=== PATIENT | male | born 1930 ===

== ENCOUNTER 2017-03-13 14:56 | Inpatient (IN) | payer MEDICARE, OTHER ==
[2017-03-13] MEDS ORDERED: Sodium Chloride 0.9% 1,000 ML IV STA (15:31)
--- NOTE | 2017-03-13 15:57 | RAD ---
HISTORY: weakness COMPARISON: 06/21/2014 TECHNIQUE: Chest PA and lateral FINDINGS: LUNGS: No active pulmonary disease. PLEURA: No significant pleural effusion identified. No pneumothorax apparent. CARDIOVASCULAR: Mild cardiomegaly believed similar. Single lead pacemaker in place-wire appears intact. OSSEOUS STRUCTURES: No significant abnormalities. VISUALIZED UPPER ABDOMEN: Normal. OTHER FINDINGS: None. IMPRESSION: No active disease.
[2017-03-13 16:22] LABS: MEAN CELL VOLUME 92.8 fl (80.0-94.0); MEAN CORPUSCULAR HEMOGLOBIN 29.7 pg (27.0-31.0); RBC 5.03 Mil/uL (4.40-5.90); RED CELL DISTRIBUTION WIDTH 14.4 % (11.5-14.5); WHITE BLOOD COUNT 11.4 K/uL (4.8-10.8)
[2017-03-13 16:23] LABS: EOS % 2.2 % (0.0-4.0); LYMPH % 22.8 % (20.0-40.0); MEAN PLATELET VOLUME 8.1 fl (7.2-11.7); MONO % 7.7 % (0.0-10.0); NEUT % 66.2 % (50.0-75.0)
[2017-03-13 16:24] LABS: BASO % 1.1 % (0.0-2.0)
[2017-03-13 16:30] LABS: EOS # 0.2 K/uL (0.0-0.7); LYMPH # 2.6 K/uL (1.0-4.3); MONO # 0.9 K/uL (0.0-0.8); NEUT # 7.5 K/uL (1.8-7.0)
[2017-03-13 16:31] LABS: BASO # 0.1 K/uL (0.0-0.2)
--- NOTE | 2017-03-13 16:37 | ED PDOC ---
HPI: Headache Time Seen by Provider: 03/13/17 15:12 Chief Complaint (Nursing): Dizziness/Lightheaded Chief Complaint (Provider): Headache History Per: Patient History/Exam Limitations: no limitations Onset/Duration Of Symptoms: Days (couple of days) Current Symptoms Are (Timing): Still Present Preceeding Symptoms: None Associated Symptoms: Other (mild dizziness) Additional Complaint(s): Binh Flores is an 86 year old male, with a past medical history of HTN, asthma, COPD and cardiac arrhythmia, who presents to the emergency department complaining of headache associated with mild dizziness onset for the past couple of days. Patient does not describe the dizziness as vertiginous, he thinks he feels anxious and that's why he feels lightheaded. Patient also reports some chest pain for the past x4 hours, he denies any shortness of breath or diaphoresis. Patient states he forgot to take medication for the past few days. He lives by himself, family away from [facility]. Patient denies any other medical complaints. PMD: Xavier Gomes Of note: Patient currently sees Dr. Dahl. Past Medical History Reviewed: Historical Data, Nursing Documentation, Vital Signs Vital Signs: Last Vital Signs Temp 98.6 F 03/13/17 14:59 Pulse 76 03/13/17 14:59 Resp 16 03/13/17 14:59 BP 145/65 03/13/17 14:59 Pulse Ox 97 03/13/17 14:59 - Medical History PMH: Asthma, Cardia Arrhythmia, COPD, Depression, Fractures (per pt nose), HTN, TIA Denies: Arthritis, CHF, HIV, Hypercholesterolemia, Hypothyroidism, Chronic Kidney Disease, Rheumatoid Arthritis - Surgical History Surgical History: Cholecystectomy, Pacemaker - Family History Family History: States: Unknown Family Hx - Living Arrangements Living Arrangements: Alone - Social History Current smoker - smoking cessation education provided: No Alcohol: None Drugs: Denies - Immunization History Hx Tetanus Toxoid Vaccination: No Hx Influenza Vaccination: Yes Hx Pneumococcal Vaccination: Yes - Home Medications Home Medications: Ambulatory Orders Medication Instructions Recorded ALPRAZolam 03/15/15 Ferrous Sulfate 03/15/15 Finasteride 03/15/15 Metoprolol 03/15/15 Mirtazapine 03/15/15 Montelukast 03/15/15 Omeprazole 03/15/15 Tamsulosin 03/15/15 buPROPion 03/15/15 - Allergies Allergies/Adverse Reactions: Allergies Allergy/AdvReac Type Severity Reaction Status Date / Time No Known Allergies Allergy Verified 03/15/15 13:58 Review of Systems ROS Statement: Except As Marked, All Systems Reviewed And Found Negative Cardiovascular: Positive for: Chest Pain Respiratory: Negative for: Shortness of Breath Neurological: Positive for: Headache, Dizziness Physical Exam - Reviewed Nursing Documentation Reviewed: Yes Vital Signs Reviewed: Yes - Physical Exam Appears: Positive for: Well, Non-toxic, No Acute Distress Head Exam: Positive for: ATRAUMATIC, NORMAL INSPECTION, NORMOCEPHALIC Skin: Positive for: Normal Color, Warm, Dry Eye Exam: Positive for: Normal appearance, EOMI, PERRL Neck: Positive for: Painless ROM, Supple Cardiovascular/Chest: Positive for: Regular Rate, Rhythm. Negative for: Murmur Respiratory: Positive for: Normal Breath Sounds (clear auscultation b/l). Negative for: Respiratory Distress Gastrointestinal/Abdominal: Positive for: Normal Exam, Soft. Negative for: Tenderness, Guarding, Rebound Back: Positive for: Normal Inspection. Negative for: L CVA Tenderness, R CVA Tenderness, Vertebral Tenderness Extremity: Positive for: Normal ROM. Negative for: Pedal Edema, Deformity, Swelling Neurologic/Psych: Positive for: Alert, Oriented (x3). Negative for: Motor/ Sensory Deficits - Laboratory Results Result Diagrams: 03/13/17 15:30 03/13/17 16:30 - ECG O2 Sat by Pulse Oximetry: 97 (RA) Pulse Ox Interpretation: Normal Medical Decision Making Medical Decision Making: Initial Impression: Dizziness, chest pain Initial Plan: --EKG --CMP --Urine dipstick --CBC w/ differential --Chest two views (PA/LAT) [RAD] --Sodium Chloride 1,000 ml IV 125 mls/hr --reevaluation 15:55 Chest X-Ray FINDINGS: LUNGS: No active pulmonary disease. PLEURA: No significant pleural effusion identified. No pneumothorax apparent. CARDIOVASCULAR: Mild cardiomegaly believed similar. Single lead pacemaker in place-wire appears intact. OSSEOUS STRUCTURES: No significant abnormalities. VISUALIZED UPPER ABDOMEN: Normal. OTHER FINDINGS: None. IMPRESSION: No active disease. Scribe Attestation: Documented by Darrell Copeland, acting as a scribe for Amalia Mabry MD. Provider Scribe Attestation: All medical record entries made by the Scribe were at my direction and personally dictated by me. I have reviewed the chart and agree that the record accurately reflects my personal performance of the history, physical exam, medical decision making, and the department course for this patient. I have also personally directed, reviewed, and agree with the discharge instructions and disposition. Disposition - Clinical Impression Clinical Impression: Dizziness - Patient ED Disposition Is Patient to be Admitted: Yes Doctor Will See Patient In The: Hospital - Disposition Disposition: Transfer of Care Disposition Time: 17:15 Condition: STABLE Forms: [employer] (Pashto) - Pt Status Changed To: Hospital Disposition Of: Observation - POA Present On Arrival: None
[2017-03-13 16:53] LABS: ALB/GLOB RATIO 1.3 (1.0-2.1); ALBUMIN 4.3 g/dL (3.5-5.0); ALT/SGPT 43 U/L (21-72); AST/SGOT 40 U/L (17-59); BLOOD UREA NITROGEN 17 mg/dl (9-20); CALCIUM 9.8 mg/dL (8.4-10.2); GFR AFRICAN-AMERICAN > 60; GFR NON-AFRICAN AMERICAN > 60
[2017-03-14] MEDS: Pantoprazole 40 mg EC Tab PO SCH ×2 (00:26→21:35)
--- NOTE | 2017-03-14 00:53 | CP.PCM.CON ---
History of Present Illness - History of Present Illness History of Present Illness: Binh Flores is an 86 year old male, with a past medical history of HTN, asthma, COPD and cardiac arrhythmia, who presents to the emergency department complaining of headache associated with mild dizziness onset for the past couple of days. Patient does not describe the dizziness as vertiginous, he thinks he feels anxious and that's why he feels lightheaded. Patient also reports some chest pain for the past x4 hours, he denies any shortness of breath or diaphoresis. Patient states he forgot to take medication for the past few days. He lives by himself, family away from [facility]. Patient denies any other medical complaints. H/O Chest Pain, Headache, Dementia, H/O CVA or TIA PMD: Xavier Gomes Of note: Patient currently sees Dr. Dahl. Past Medical History Reviewed: Historical Data, Nursing Documentation, Vital Signs Vital Signs: Last Vital Signs Temp 98.6 F 03/13/17 14:59 Pulse 76 03/13/17 14:59 Resp 16 03/13/17 14:59 BP 145/65 03/13/17 14:59 Pulse Ox 97 03/13/17 14:59 - Medical History PMH: Asthma, Cardia Arrhythmia, COPD, Depression, Fractures (per pt nose), HTN, TIA, H/O Chest Pain, Headache, Dementia, H/O CVA or TIA Inablity to walk since 10 years after a spinal Surgery in his Lumbar area He has a home support worker who helped him for daily activity and feeding. 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 - Living Arrangements Living Arrangements: Alone - Family History Family History: States: Unknown Family Hx - Living Arrangements Living Arrangements: Alone - Social History Current smoker - smoking cessation education provided: No Alcohol: None Drugs: Denies - Family History Family History: States: Unknown Family Hx - Living Arrangements Living Arrangements: Alone - Social History Current smoker - smoking cessation education provided: No Alcohol: None Drugs: Denies - Family History Family History: States: Unknown Family Hx - Living Arrangements Living Arrangements: Alone - Social History Current smoker - smoking cessation education provided: No Alcohol: None Drugs: Denies Physical Exam - Reviewed Nursing Documentation Reviewed: Yes Vital Signs Reviewed: Yes - Physical Exam Appears: Positive for: Well, Non-toxic, No Acute Distress Head Exam: Positive for: ATRAUMATIC, NORMAL INSPECTION, NORMOCEPHALIC Skin: Positive for: Normal Color, Warm, Dry Eye Exam: Positive for: Normal appearance, EOMI, PERRL Neck: Positive for: Painless ROM, Supple Cardiovascular/Chest: Positive for: Regular Rate, Rhythm. Negative for: Murmur Respiratory: Positive for: Normal Breath Sounds (clear auscultation b/l). Negative for: Respiratory Distress Gastrointestinal/Abdominal: Positive for: Normal Exam, Soft. Negative for: Tenderness, Guarding, Rebound Back: Positive for: Normal Inspection. Negative for: L CVA Tenderness, R CVA Tenderness, Vertebral Tenderness Extremity: Positive for: Normal ROM. Negative for: Pedal Edema, Deformity, Swelling Neurologic/Psych: Positive for: Alert, Oriented (x3). Negative for: Motor/ Sensory Deficits ECG O2 Sat by Pulse Oximetry: 97 (RA) Pulse Ox Interpretation: Normal Chest X-Ray FINDINGS: LUNGS: No active pulmonary disease. PLEURA: No significant pleural effusion identified. No pneumothorax apparent. CARDIOVASCULAR: Mild cardiomegaly believed similar. Single lead pacemaker in place-wire appears intact. OSSEOUS STRUCTURES: No significant abnormalities. VISUALIZED UPPER ABDOMEN: Normal. OTHER FINDINGS: None. IMPRESSION: No active disease. Disposition - Clinical Impression Clinical Impression: Dizziness - Patient ED Disposition Is Patient to be Admitted: Yes Doctor Will See Patient In The: Hospital - Disposition Disposition: Transfer of Care Disposition Time: 17:15 Condition: STABLE Forms: [employer] (Bulgarian) - Pt Status Changed To: Hospital Disposition Of: Observation - POA Present On Arrival: None Past Patient History - Past Medical History & Family History Past Medical History?: Yes - Past Social History Alcohol: None Drugs: Denies - CARDIAC Hx Cardiac Disorders: Yes (cardiac arrythmia, pacemaker, cardiomyopathy) - PULMONARY Hx Respiratory Disorders: Yes (asthma, COPD) - NEUROLOGICAL Hx Neurological Disorder: Yes (CVA) - HEENT Hx HEENT Problems: Yes (cataracts) - RENAL Hx Chronic Kidney Disease: No - ENDOCRINE/METABOLIC Hx Hypothyroidism: No - HEMATOLOGICAL/ONCOLOGICAL Hx Human Immunodeficiency Virus (HIV): No - INTEGUMENTARY Hx Dermatological Problems: No - MUSCULOSKELETAL/RHEUMATOLOGICAL Hx Arthritis: No Hx Fractures: Yes (per pt nose) Hx Rheumatoid Arthritis: No - GASTROINTESTINAL Hx Gastrointestinal Disorders: Yes Hx Constipation: Yes - GENITOURINARY/GYNECOLOGICAL Hx Genitourinary Disorders: No - PSYCHIATRIC Hx Psychophysiologic Disorder: Yes (depression) - SURGICAL HISTORY Hx Cholecystectomy: Yes - ANESTHESIA Hx Anesthesia: Yes Hx Anesthesia Reactions: No Hx Malignant Hyperthermia: No Meds Allergies/Adverse Reactions: Allergies Allergy/AdvReac Type Severity Reaction Status Date / Time No Known Allergies Allergy Verified 03/15/15 13:58 - Medications Medications: Current Medications Atorvastatin Calcium (Lipitor) 40 mg PO HS [facility] Last Admin: 03/14/17 00:20 Dose: 40 mg Buspirone HCl (Buspar) 5 mg PO Q12H [facility] Last Admin: 03/14/17 00:20 Dose: 5 mg Donepezil HCl (Aricept) 5 mg PO DAILY [facility] Finasteride (Proscar) 5 mg PO [facility] Last Admin: 03/14/17 00:20 Dose: 5 mg Home Med (Umeclidinium [place] [Incruse Ellipta]) 1 puff IH DAILY [facility] Metoprolol Tartrate (Lopressor) 50 mg PO Q12H [facility] Last Admin: 03/14/17 00:26 Dose: 50 mg Mirtazapine (Remeron) 15 mg PO [facility] Last Admin: 03/14/17 00:20 Dose: 15 mg Montelukast Sodium (Singulair) 10 mg PO HS [facility] Last Admin: 03/14/17 00:20 Dose: 10 mg Pantoprazole Sodium (Protonix Ec Tab) 40 mg PO [facility] Last Admin: 03/14/17 00:26 Dose: 40 mg Tamsulosin HCl (Flomax) 0.4 mg PO [facility] Last Admin: 03/14/17 00:20 Dose: 0.4 mg Valsartan (Diovan) 80 mg PO DAILY [facility] Zolpidem Tartrate (Ambien) 5 mg PO HS PRN PRN Reason: Sleep Last Admin: 03/14/17 00:26 Dose: 5 mg Physical Exam - Psychiatric Exam Additional comments: Mental Status: Patient is lying down, quiet and responsive, well behaved Awake Alert, Oriented X3 Normal memory fluent coherent speech Sad for living by himself and for his divorce Complaining of headache and vertigo Compensated dementia Cranial Nerves II to XII: No deficits Motor: Normal tone, normal power in Right Upper and Lower Extremities Weak Power 3 to 4-/5 in Left Upper and Lower Extremities Positive Lasegue test bilaterally DTR are 0/4 Toes are down going by plantar stimulation Cerebellar: Normal FNT Unable to perform HST Unable to perform Tandem walking Sensory: Intact pain and touch Stature and Gait: Unable. Results - Vital Signs Recent Vital Signs: Last Vital Signs Temp 97.6 F 03/14/17 00:05 Pulse 71 03/14/17 00:26 Resp 18 03/14/17 00:05 BP 162/78 H 03/14/17 00:26 Pulse Ox 96 03/14/17 00:05 - Labs Result Diagrams: 03/14/17 05:15 03/16/17 10:10 Labs: Laboratory Results - last 24 hr 03/13/17 03/13/17 03/13/17 14:40 15:30 16:30 WBC 11.4 H D RBC 5.03 Hgb 15.0 Hct 46.7 MCV 92.8 MCH 29.7 MCHC 32.0 L RDW 14.4 Plt Count 202 MPV 8.1 Neut % (Auto) 66.2 Lymph % (Auto) 22.8 [place] % (Auto) 7.7 Eos % (Auto) 2.2 Baso % (Auto) 1.1 Neut # 7.5 H Lymph # 2.6 [place] # 0.9 H Eos # 0.2 Baso # 0.1 PT 11.0 INR 1.0 APTT 22.0 L Sodium 136 Potassium 4.1 Chloride 97 L Carbon Dioxide 31 H Anion Gap 12 BUN 17 Creatinine 0.9 Est GFR ( Amer) > 60 Est GFR (Non-Af Amer) > 60 Random Glucose 136 H Calcium 9.8 Total Bilirubin 0.7 AST 40 ALT 43 Alkaline Phosphatase 69 Total Protein 7.7 Albumin 4.3 Globulin 3.4 Albumin/Globulin Ratio 1.3 Assessment & Plan (1) Lightheadedness Assessment and Plan: Ear infection, Labyrinthitis are to be assessed. R/O Cervical Radiculopathy that might cause Vertigo R/O Paraneoplastic syndrome that might cause vertigo this might be related to a possible Cancer Prostate get PSA and Yo Abs Status: Acute (2) Unsteady gait Assessment and Plan: R/O weakness as a cause, R/O seizures R/O CVA. Status: Deleted Priority: High (3) Chest pain Assessment and Plan: Negative CXR R/O Cardiac causes Status: Acute Priority: High (4) Dizziness Assessment and Plan: Sense of Vertigo Status: Acute (5) Headache Assessment and Plan: R/O Temporal Arteritis R/O Hypnic Headache that occurs with sleep Apnea. Status: Acute Priority: Medium (6) Dementia Assessment and Plan: Compensated by treatment Status: Acute Priority: High (7) Inability to walk Assessment and Plan: After a lumbar spinal surgery 10 years ago Lumbar Radiculopathy Status: Acute (8) BPH (benign prostatic hyperplasia) Status: Acute (9) CVA (cerebral vascular accident) Assessment and Plan: CVA Vs TIA in the Past Status: Acute
[2017-03-14 05:58] LABS: HEMOGLOBIN 14.1 g/dL (12.0-18.0); MEAN CELL VOLUME 93.4 fl (80.0-94.0); MEAN CORPUSCULAR HEMOGLOBIN 30.1 pg (27.0-31.0); MEAN CORPUSCULAR HGB CONC 32.2 g/dL (33.0-37.0); RBC 4.69 Mil/uL (4.40-5.90); RED CELL DISTRIBUTION WIDTH 13.8 % (11.5-14.5); WHITE BLOOD COUNT 6.9 K/uL (4.8-10.8)
[2017-03-14 06:02] LABS: ALB/GLOB RATIO 1.2 (1.0-2.1); ALBUMIN 4.1 g/dL (3.5-5.0); ALT/SGPT 42 U/L (21-72); AST/SGOT 38 U/L (17-59); BLOOD UREA NITROGEN 14 mg/dl (9-20); CALCIUM 9.8 mg/dL (8.4-10.2); GFR AFRICAN-AMERICAN > 60; GFR NON-AFRICAN AMERICAN > 60; HDL CHOLESTEROL 53 MG/DL (30-70)
[2017-03-14 06:12] LABS: LDL CHOLESTEROL 100 mg/dL (0-129)
[2017-03-14 06:16] LABS: T4 8.13 ug/dl (5.5-11.0)
--- NOTE | 2017-03-14 08:41 | CT ---
PROCEDURE: CT HEAD WITHOUT CONTRAST. HISTORY: dizziness, headache COMPARISON: 06/21/2014 TECHNIQUE: Axial computed tomography images were obtained through the head/brain without intravenous contrast. Radiation dose: Total exam DLP = 873.42 mGy-cm. This CT exam was performed using one or more of the following dose reduction techniques: Automated exposure control, adjustment of the mA and/or kV according to patient size, and/or use of iterative reconstruction technique. FINDINGS: HEMORRHAGE: No intracranial hemorrhage. BRAIN: No mass effect or edema. Mild atrophy. Moderate periventricular white matter lucency with patchy and confluent deep and subcortical white matter lucency, consistent with chronic microvascular ischemic change. Multiple old small bilateral basal ganglia lacunar infarcts. No evidence of acute infarct. VENTRICLES: Incidental cavum septum pellucidum. Mild ventriculomegaly consistent with the degree of surrounding parenchymal atrophy. No evidence of obstructive hydrocephalus. No midline shift. CALVARIUM: Unremarkable. PARANASAL SINUSES: Unremarkable as visualized. No significant inflammatory changes. MASTOID AIR CELLS: Unremarkable as visualized. No inflammatory changes. OTHER FINDINGS: None. IMPRESSION: No intracranial mass, hemorrhage or evidence of acute infarct. Age related atrophy with chronic white matter ischemic change in bilateral basal ganglia lacunar infarcts. No interval change. Preliminary interpretation of this examination was reported by Sopheon at 7:30 p.m. on 03/13/2017. There is concurrence of this report with the preliminary interpretation.
[2017-03-14] MEDS ORDERED: Patient's Own Med (Umeclidinium Bromide [Incruse Ellipta] 1 PUFF) IH SCH (09:00)
--- NOTE | 2017-03-14 13:15 | CP.PCM.HP ---
History of Present Illness - History of Present Illness History of Present Illness: CC: Chest Pain. 86 y/o M, Multiple chronic medical conditions, [facility] for Chest pain that has wilson in AM DOA with no relief. 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 Dementia, PPM. Aggravated factor: Non in compliance with medications 2nd to periods of forgetfulness. No: fever, chills, SOB, syncope, abdominal pain, n/v/d, sick contact, recent travel out of [facility]. CXR: No active disease. Head CT: No intracranial mass, hemorrhage or acute infarct , chronic changes , lacunar infarcts Present on Admission - Present on Admission Any Indicators Present on Admission: No Review of Systems - Review of Systems Systems not reviewed;Unavailable: Acuity of Condition (Confused, fogetful.), Dementia Past Patient History - Past Medical History & Family History Past Medical History?: Yes Pertinent Family History: Unknown - Past Social History Smoking Status: Never Smoked Alcohol: None Drugs: Denies Home Situation {Lives}: Alone - CARDIAC Hx Cardiac Disorders: Yes (cardiac arrythmia, pacemaker, cardiomyopathy) Hx Pacemaker: Yes - PULMONARY Hx Respiratory Disorders: Yes (asthma, COPD) Hx Chronic Obstructive Pulmonary Disease (COPD): Yes - NEUROLOGICAL Hx Neurological Disorder: Yes (CVA) - HEENT Hx HEENT Problems: Yes (cataracts) - RENAL Hx Chronic Kidney Disease: No - ENDOCRINE/METABOLIC Hx Hypothyroidism: No - HEMATOLOGICAL/ONCOLOGICAL Hx Blood Disorders: No Hx Human Immunodeficiency Virus (HIV): No - INTEGUMENTARY Hx Dermatological Problems: No - MUSCULOSKELETAL/RHEUMATOLOGICAL Hx Arthritis: No Hx Back Pain: Yes Hx Falls: No Hx Fractures: Yes (per pt nose) Hx Rheumatoid Arthritis: No Hx Unsteady Gait: Yes - GASTROINTESTINAL Hx Gastrointestinal Disorders: Yes Hx Constipation: Yes - GENITOURINARY/GYNECOLOGICAL Hx Genitourinary Disorders: No - PSYCHIATRIC Hx Psychophysiologic Disorder: Yes (depression) Hx Anxiety: Yes Hx Depression: Yes Hx Substance Use: No - SURGICAL HISTORY Hx Cholecystectomy: Yes Other/Comment: Laminectomy , Discectomy , posterior fusion L-S - ANESTHESIA Hx Anesthesia: Yes Hx Anesthesia Reactions: No Hx Malignant Hyperthermia: No Meds Allergies/Adverse Reactions: Allergies Allergy/AdvReac Type Severity Reaction Status Date / Time No Known Allergies Allergy Verified 03/15/15 13:58 Physical Exam - Constitutional Appears: No Acute Distress - Head Exam Head Exam: NORMAL INSPECTION - Eye Exam Eye Exam: PERRL - ENT Exam ENT Exam: Normal Exam - Neck Exam Neck exam: Positive for: Normal Inspection - Respiratory Exam Respiratory Exam: Clear to Auscultation Bilateral - Cardiovascular Exam Cardiovascular Exam: REGULAR RHYTHM - GI/Abdominal Exam GI & Abdominal Exam: Normal Bowel Sounds, Soft - Extremities Exam Additional comments: Weaknesses L/E - Back Exam Back exam: tenderness (mild) Additional comments: healed scars - Neurological Exam Additional comments: Forgetful, confused, follows commands. Unsteady gait, generalized weakness L>R - Psychiatric Exam Psychiatric exam: Anxious, Depressed - Skin Skin Exam: Warm Results - Vital Signs Recent Vital Signs: Last Vital Signs Temp 98.2 F 03/14/17 12:00 Pulse 64 03/14/17 13:06 Resp 20 03/14/17 12:00 BP 135/57 L 03/14/17 13:06 Pulse Ox 98 03/14/17 12:00 reviewed Jose Maria - Labs Result Diagrams: 03/14/17 05:15 03/16/17 10:10 Labs: Laboratory Results - last 24 hr 03/13/17 03/13/17 03/13/17 14:40 15:30 16:30 WBC 11.4 H D RBC 5.03 Hgb 15.0 Hct 46.7 MCV 92.8 MCH 29.7 MCHC 32.0 L RDW 14.4 Plt Count 202 MPV 8.1 Neut % (Auto) 66.2 Lymph % (Auto) 22.8 [place] % (Auto) 7.7 Eos % (Auto) 2.2 Baso % (Auto) 1.1 Neut # 7.5 H Lymph # 2.6 [place] # 0.9 H Eos # 0.2 Baso # 0.1 ESR PT 11.0 INR 1.0 APTT 22.0 L Sodium 136 Potassium 4.1 Chloride 97 L Carbon Dioxide 31 H Anion Gap 12 BUN 17 Creatinine 0.9 Est GFR ( Amer) > 60 Est GFR (Non-Af Amer) > 60 Random Glucose 136 H Calcium 9.8 Total Bilirubin 0.7 AST 40 ALT 43 Alkaline Phosphatase 69 Total Protein 7.7 Albumin 4.3 Globulin 3.4 Albumin/Globulin Ratio 1.3 Triglycerides Cholesterol LDL Cholesterol Direct HDL Cholesterol Prostate Specific Ag Vitamin B12 Thyroxine (T4) TSH 3rd Generation 03/14/17 03/14/17 05:15 05:15 WBC 6.9 RBC 4.69 Hgb 14.1 Hct 43.8 MCV 93.4 MCH 30.1 MCHC 32.2 L RDW 13.8 Plt Count 175 MPV Neut % (Auto) Lymph % (Auto) [place] % (Auto) Eos % (Auto) Baso % (Auto) Neut # Lymph # [place] # Eos # Baso # ESR 22 H PT INR APTT Sodium 139 Potassium 3.9 Chloride 98 Carbon Dioxide 31 H Anion Gap 14 BUN 14 Creatinine 0.8 Est GFR ( Amer) > 60 Est GFR (Non-Af Amer) > 60 Random Glucose 122 H Calcium 9.8 Total Bilirubin 0.9 AST 38 ALT 42 Alkaline Phosphatase 69 Total Protein 7.6 Albumin 4.1 Globulin 3.5 Albumin/Globulin Ratio 1.2 Triglycerides 84 Cholesterol 179 LDL Cholesterol Direct 100 HDL Cholesterol 53 Prostate Specific Ag 0.266 Vitamin B12 514 Thyroxine (T4) 8.13 TSH 3rd Generation 2.76 reviewed [facility] - Imaging and Cardiology Chest x-ray Status: Report reviewed by me (Jose Maria) CT scan - head Status: Report reviewed by me (Jose Maria) Assessment & Plan (1) Encephalopathy Status: Acute (2) Chest pain Status: Acute Priority: High (3) Anxiety and depression Status: Chronic Priority: High (4) Generalized weakness Status: Chronic Priority: High (5) Dementia Status: Acute Priority: High (6) HTN (hypertension) Status: Chronic Priority: Medium (7) COPD (chronic obstructive pulmonary disease) Status: Chronic Priority: Low (8) History of CVA (cerebrovascular accident) Status: Chronic Priority: Medium (9) Headache Status: Acute Priority: Medium (10) History of laminectomy Status: Acute - Assessment and Plan (Free Text) Plan: F/U Carotid & vertebral U-S, EKG, continue Diovan, Lopressor, Lipitor, Singulair, PT. OT eval, Neurology consult appreciated, Cardiology consult. - Date & Time Date: 03/14/17 Time: 11:30
--- NOTE | 2017-03-14 14:59 | US ---
PROCEDURE: Duplex ultrasound of the carotid and vertebral arteries. HISTORY: Vertigo, Unsteady Gait COMPARISON: Right ICA degree of stenosis: Less than 50% Left ICA degree of stenosis: Less than 50% Reference Internal Carotid Artery (ICA) Peak Systolic Velocity (PSV) for above: 1. Less than 50% stenosis less than 125 cm/s peak systolic velocity 2. 50-69% stenosis 125-230cm/s peak systolic velocity 3. Greater than 70% but less than near occlusion greater than 230 cm/s peak systolic velocity TECHNIQUE: Grayscale and duplex Doppler evaluation of the cervical carotid and vertebral arteries were performed. The common carotid, carotid bifurcations and cervical ICA and proximal ECA were evaluated. The vertebral arteries were evaluated for gross patency and direction. FINDINGS: RIGHT CAROTID ARTERIES: Common Carotid Artery: Intimal thickening is present Maximal flow velocity of 44.3 cm/s. Carotid Bifurcation: Focal partially calcified plaque. Internal Carotid Artery:Heterogeneous plaque formation. tortuous ICA Maximal flow velocity of 127.6 cm/s. External Carotid Artery (proximal branches): Normal. Maximal flow velocity of 196.8 cm/s. ICA/CCA Ratio: 2.9 LEFT CAROTID ARTERIES: Common Carotid Artery: Intimal thickening is present Maximal flow velocity of 96.3 cm/s. Carotid Bifurcation: Dense heterogeneous and calcified plaque Internal Carotid Artery:Heterogeneous plaque formation. Maximal flow velocity of 188.4 cm/s. External Carotid Artery (proximal branches): Normal. Maximal flow velocity of 196.8 cm/s. ICA/CCA Ratio: 3.0 VERTEBRAL ARTERIES: Right Vertebral Artery: Patent. Antegrade flow. Left Vertebral Artery: Patent. Antegrade flow. OTHER FINDINGS: None. IMPRESSION: Right ICA degree of stenosis: 50- 69% Left ICA degree of stenosis: 50- 69%. Reference Internal Carotid Artery (ICA) Peak Systolic Velocity (PSV) for above: 1. Less than 50% stenosis less than 125 cm/s peak systolic velocity 2. 50-69% stenosis 125-230cm/s peak systolic velocity 3. Greater than 70% but less than near occlusion greater than 230 cm/s peak systolic velocity
--- NOTE | 2017-03-14 19:39 | CARD ---
APPROVED REPORT EXAM: Two-dimensional and M-mode echocardiogram with Doppler and color Doppler. Other Information Quality : GoodRhythm : NSR INDICATION Dizziness and Vertigo Surgery/Intervention ICD/Pacemaker: 2D DIMENSIONS IVSd1.23 (0.7-1.1cm)LVDd5.36 (3.9-5.9cm) LVOT Diameter2.08 (1.8-2.4cm)PWd0.85 (0.7-1.1cm) IVSs1.32 (0.8-1.2cm)LVDs4.35 (2.5-4.0cm) FS (%) 18.8 %PWs0.70 (0.8-1.2cm) M-Mode DIMENSIONS Left Atrium (MM)4.72 (2.5-4.0cm)IVSd0.47 (0.7-1.1cm) Aortic Root3.47 (2.2-3.7cm)LVDd7.78 (4.0-5.6cm) Aortic Cusp Exc.1.63 (1.5-2.0cm)PWd0.84 (0.7-1.1cm) IVSs1.09 cmFS (%) 39 % LVDs4.78 (2.0-3.8cm)PWs1.00 cm Mitral Valve MV E Ehitqqdq55.2cm/sMV DECEL [id number] A Xzgfnksf21.6cm/s MV LYW89lcP/A ratio1.3MVA (PHT)3.55cm2 TDI Lateral E' Peak V10.43cm/sMedial E' Peak V3.26cm/sE/Lateral E'7.8 E/Medial E'24.9 Pulmonary Valve PV Peak Onnmluwa80.8cm/s Tricuspid Valve TR Peak Pyllnsuj931qq/sRAP TXFZYDJG62oyAaHN Peak Gr.35mmHg [id number] LEFT VENTRICLE The left ventricle is normal size. There is normal left ventricular wall thickness. The left ventricular function is low normal. The left ventricular ejection fraction is low normal range.LVEF is 50% There is inferior and posterobasal hypokinesis. The left ventricular diastolic function is normal. No left ventricle thrombus noted on this study. There is no ventricular septal defect visualized. There is no left ventricular aneurysm. There is no mass noted in the left ventricle. RIGHT VENTRICLE The right ventricle is normal size. There is normal right ventricular wall thickness. The right ventricular systolic function is normal. ATRIA The left atrium is moderately dilated. The right atrium size is normal. The interatrial septum is intact with no evidence for an atrial septal defect. AORTIC VALVE The aortic valve is normal in structure. There is mild to moderate aortic regurgitation. There is no aortic valvular stenosis. There is no aortic valvular vegetation. MITRAL VALVE The mitral valve is normal in structure. There is no evidence of mitral valve prolapse. There is no mitral valve stenosis. Mitral regurgitation is moderate. TRICUSPID VALVE The tricuspid valve is normal in structure. There is trace to mild tricuspid regurgitation. Right ventricular systolic pressure is estimated at 30-40 mmHg. There is no tricuspid valve prolapse or vegetation. There is no tricuspid valve stenosis. PULMONIC VALVE The pulmonary valve is normal in structure. There is no pulmonic valvular regurgitation. There is no pulmonic valvular stenosis. GREAT VESSELS The aortic root is normal in size. The ascending aorta is normal in size. The IVC is normal in size and collapses >50% with inspiration. PERICARDIAL EFFUSION The pericardium appears normal. There is no pleural effusion. <Conclusion> Low Normal Systolic Ejection Fraction LVEF 50% Posterobasal/ Inferior wall hypokinesis Moderate Mitral Regurgitation Mild To Moderate Aortic Insufficiency
--- NOTE | 2017-03-14 23:09 | CP.PCM.PN ---
Subjective - Date & Time of Evaluation Date of Evaluation: 03/14/17 Time of Evaluation: 23:07 - Subjective Subjective: IMPRESSION of Carotid Doppler: Right ICA degree of stenosis: 50- 69% Left ICA degree of stenosis: 50- 69% He is more stable, skipping doses of his medicine. ESR and CRP are within Normal. PSA is pending. Other labs are within normal limits Normal Vitamin D level Normal RPR, Normal Thyroid studies and studies for DM Objective - Vital Signs/Intake and Output Vital Signs (last 24 hours): Temp Pulse Resp BP Pulse Ox 98.2 F 61 16 150/77 94 L 03/14/17 20:25 03/14/17 21:00 03/14/17 20:25 03/14/17 20:25 03/14/17 20:25 - Medications Medications: Current Medications Atorvastatin Calcium (Lipitor) 40 mg PO [facility] Last Admin: 03/14/17 21:35 Dose: 40 mg Buspirone HCl (Buspar) 5 mg PO Q12H [facility] Last Admin: 03/14/17 13:03 Dose: 5 mg Donepezil HCl (Aricept) 5 mg PO DAILY [facility] Last Admin: 03/14/17 09:42 Dose: 5 mg Finasteride (Proscar) 5 mg PO [facility] Last Admin: 03/14/17 21:36 Dose: 5 mg Home Med (Umeclidinium Olar [Incruse Ellipta]) 1 puff IH DAILY [facility] Metoprolol Tartrate (Lopressor) 50 mg PO Q12H [facility] Last Admin: 03/14/17 13:06 Dose: 50 mg Mirtazapine (Remeron) 15 mg PO [facility] Last Admin: 03/14/17 00:20 Dose: 15 mg Montelukast Sodium (Singulair) 10 mg PO HS [facility] Last Admin: 03/14/17 21:35 Dose: 10 mg Pantoprazole Sodium (Protonix Ec Tab) 40 mg PO [facility] Last Admin: 03/14/17 21:35 Dose: 40 mg Tamsulosin HCl (Flomax) 0.4 mg PO [facility] Last Admin: 03/14/17 21:35 Dose: 0.4 mg Valsartan (Diovan) 80 mg PO DAILY [facility] Last Admin: 03/14/17 09:43 Dose: 80 mg Zolpidem Tartrate (Ambien) 5 mg PO HS PRN PRN Reason: Sleep Last Admin: 03/14/17 00:26 Dose: 5 mg - Labs Labs: 03/14/17 05:15 03/14/17 05:15 PT 11.0 Seconds (9.8-13.1) 03/13/17 14:40 INR 1.0 (0.9-1.2) 03/13/17 14:40 APTT 22.0 Seconds (25.6-37.1) L 03/13/17 14:40 Assessment and Plan (1) Lightheadedness Status: Acute (2) Unsteady gait Status: Deleted (3) Chest pain Status: Acute (4) Dizziness Status: Acute (5) Headache Status: Acute (6) Dementia Status: Acute (7) Inability to walk Status: Acute (8) BPH (benign prostatic hyperplasia) Status: Acute (9) CVA (cerebral vascular accident) Status: Acute
--- NOTE | 2017-03-15 09:21 | CP.PCM.CON ---
History of Present Illness - History of Present Illness History of Present Illness: This 86- year-old man who has had a left hemiplegia and is mostly bed and chair bound was brought to the emergency room because of a feeling of weakness and lightheadedness. He has had a long history of hypertension and COPD. The patient lives alone but the rest of his family in [place]. He has had numerous hospitalizations at this institution as well as at [facility]. Physical examination shows an elderly man with a left hemiplegia was able to answer simple questions on repeatedly asking them. He does not seem to be aware of his surroundings and cannot precisely answer that he is in a hospital. His heart rate was 68 bpm and regular and his blood pressure was 136/74 mmHg. His jugular venous pressure was not elevated and there was no edema hour his lower extremity. Pedal pulses are feeble but distantly present. There were no carotid bruits. The apex was not palpable. This first and second heart sounds were normal. There is a brief ejection systolic murmur. There was no gallop rhythm and there were no rales. His abdomen was soft liver and spleen are not palpable. The patient had a left hemiplegia. His electro-cardiogram shows sinus rhythm with nonspecific ST-T changes the R waves in V2 were prominent, there were no Q waves in inferior leads. His echocardiogram shows mild left ventricular wall motion abnormalities but otherwise the left ventricle appears to be competent. There was no significant valvulopathy. The patient's telemetry shows steady sinus rhythm. His lab data was noted. Impression: Status post left hemiplegia. History of hypertension and COPD. The patient is stable from cardiac vascular point of view. The present management should continue. Past Patient History - Past Medical History & Family History Past Medical History?: Yes - Past Social History Smoking Status: Never Smoked Alcohol: None Drugs: Denies Home Situation {Lives}: Alone - CARDIAC Hx Cardiac Disorders: Yes (cardiac arrythmia, pacemaker, cardiomyopathy) Hx Pacemaker: Yes - PULMONARY Hx Respiratory Disorders: Yes (asthma, COPD) Hx Chronic Obstructive Pulmonary Disease (COPD): Yes - NEUROLOGICAL Hx Neurological Disorder: Yes (CVA) - HEENT Hx HEENT Problems: Yes (cataracts) - RENAL Hx Chronic Kidney Disease: No - ENDOCRINE/METABOLIC Hx Hypothyroidism: No - HEMATOLOGICAL/ONCOLOGICAL Hx Blood Disorders: No Hx Human Immunodeficiency Virus (HIV): No - INTEGUMENTARY Hx Dermatological Problems: No - MUSCULOSKELETAL/RHEUMATOLOGICAL Hx Arthritis: No Hx Back Pain: Yes Hx Falls: No Hx Fractures: Yes (per pt nose) Hx Rheumatoid Arthritis: No Hx Unsteady Gait: Yes - GASTROINTESTINAL Hx Gastrointestinal Disorders: Yes Hx Constipation: Yes - GENITOURINARY/GYNECOLOGICAL Hx Genitourinary Disorders: No - PSYCHIATRIC Hx Psychophysiologic Disorder: Yes (depression) Hx Anxiety: Yes Hx Depression: Yes Hx Substance Use: No - SURGICAL HISTORY Hx Cholecystectomy: Yes - ANESTHESIA Hx Anesthesia: Yes Hx Anesthesia Reactions: No Hx Malignant Hyperthermia: No Meds Allergies/Adverse Reactions: Allergies Allergy/AdvReac Type Severity Reaction Status Date / Time No Known Allergies Allergy Verified 03/15/15 13:58 - Medications Medications: Current Medications Atorvastatin Calcium (Lipitor) 40 mg PO [facility] Last Admin: 03/14/17 21:35 Dose: 40 mg Buspirone HCl (Buspar) 5 mg PO Q12H [facility] Last Admin: 03/14/17 23:45 Dose: Not Given Donepezil HCl (Aricept) 5 mg PO DAILY [facility] Last Admin: 03/14/17 09:42 Dose: 5 mg Finasteride (Proscar) 5 mg PO [facility] Last Admin: 03/14/17 21:36 Dose: 5 mg Home Med (Umeclidinium Sargents [Incruse Ellipta]) 1 puff IH DAILY [facility] Metoprolol Tartrate (Lopressor) 50 mg PO Q12H [facility] Last Admin: 03/14/17 23:45 Dose: 50 mg Mirtazapine (Remeron) 15 mg PO [facility] Last Admin: 03/14/17 23:45 Dose: Not Given Montelukast Sodium (Singulair) 10 mg PO [facility] Last Admin: 03/14/17 21:35 Dose: 10 mg Pantoprazole Sodium (Protonix Ec Tab) 40 mg PO [facility] Last Admin: 03/14/17 21:35 Dose: 40 mg Tamsulosin HCl (Flomax) 0.4 mg PO [facility] Last Admin: 03/14/17 21:35 Dose: 0.4 mg Valsartan (Diovan) 80 mg PO DAILY [facility] Last Admin: 03/14/17 09:43 Dose: 80 mg Zolpidem Tartrate (Ambien) 5 mg PO PRN PRN Reason: Sleep Last Admin: 03/14/17 00:26 Dose: 5 mg Results - Vital Signs Recent Vital Signs: Last Vital Signs Temp 97.6 F 03/15/17 08:32 Pulse 56 L 03/15/17 08:32 Resp 20 03/15/17 08:32 BP 147/71 03/15/17 08:32 Pulse Ox 98 03/15/17 08:32 - Labs Result Diagrams: 03/14/17 05:15 03/14/17 05:15 Labs: Laboratory Results - last 24 hr 03/14/17 03/14/17 03/14/17 05:15 05:15 05:15 Troponin I C-React Prot High Sens 2.22 25-OH Vitamin D Total 35.1 RPR Nonreactive 03/14/17 03/14/17 03/15/17 13:34 21:00 05:31 Troponin I < 0.0120 0.0220 0.0280 C-React Prot High Sens 25-OH Vitamin D Total RPR
--- NOTE | 2017-03-15 17:17 | CP.PCM.PN ---
Subjective - Date & Time of Evaluation Date of Evaluation: 03/15/17 Time of Evaluation: 13:30 - Subjective Subjective: lethargic , arousable , confused , no AD Objective - Vital Signs/Intake and Output Vital Signs (last 24 hours): Temp Pulse Resp BP Pulse Ox 97.4 F L 66 18 140/94 H 100 03/15/17 16:48 03/15/17 15:51 03/15/17 15:51 03/15/17 15:51 03/15/17 15:51 - Medications Medications: Current Medications Acetaminophen (Tylenol 325mg Tab) 650 mg PO Q4 PRN PRN Reason: Headache Last Admin: 03/15/17 16:48 Dose: 650 mg Atorvastatin Calcium (Lipitor) 40 mg PO HS [facility] Last Admin: 03/14/17 21:35 Dose: 40 mg Buspirone HCl (Buspar) 5 mg PO Q12H [facility] Last Admin: 03/14/17 23:45 Dose: Not Given Donepezil HCl (Aricept) 5 mg PO DAILY [facility] Last Admin: 03/14/17 09:42 Dose: 5 mg Finasteride (Proscar) 5 mg PO HS [facility] Last Admin: 03/14/17 21:36 Dose: 5 mg Home Med (Umeclidinium [place] [Incruse Ellipta]) 1 puff IH DAILY [facility] Metoprolol Tartrate (Lopressor) 50 mg PO Q12H [facility] Last Admin: 03/15/17 15:11 Dose: 50 mg Mirtazapine (Remeron) 15 mg PO [facility] Last Admin: 03/14/17 23:45 Dose: Not Given Montelukast Sodium (Singulair) 10 mg PO [facility] Last Admin: 03/14/17 21:35 Dose: 10 mg Pantoprazole Sodium (Protonix Ec Tab) 40 mg PO HS [facility] Last Admin: 03/14/17 21:35 Dose: 40 mg Tamsulosin HCl (Flomax) 0.4 mg PO [facility] Last Admin: 03/14/17 21:35 Dose: 0.4 mg Valsartan (Diovan) 80 mg PO DAILY [facility] Last Admin: 03/15/17 09:22 Dose: 80 mg Zolpidem Tartrate (Ambien) 5 mg PO HS PRN PRN Reason: Sleep Last Admin: 03/14/17 00:26 Dose: 5 mg - Labs Labs: 03/14/17 05:15 03/14/17 05:15 PT 11.0 Seconds (9.8-13.1) 03/13/17 14:40 INR 1.0 (0.9-1.2) 03/13/17 14:40 APTT 22.0 Seconds (25.6-37.1) L 03/13/17 14:40 - Constitutional Appears: Chronically Ill - Head Exam Head Exam: NORMAL INSPECTION - Eye Exam Eye Exam: PERRL - ENT Exam ENT Exam: Normal Exam - Neck Exam Neck Exam: Normal Inspection - Respiratory Exam Respiratory Exam: Decreased Breath Sounds (at bases) - Cardiovascular Exam Cardiovascular Exam: REGULAR RHYTHM - GI/Abdominal Exam GI & Abdominal Exam: Soft, Normal Bowel Sounds - Extremities Exam Extremities Exam: Normal Inspection - Back Exam Additional comments: healed scars - Neurological Exam Additional comments: confused, generalized weakness L>R - Skin Skin Exam: Warm Assessment and Plan (1) Chest pain Status: Resolved (2) Anxiety and depression Status: Chronic (3) Generalized weakness Status: Chronic (4) Dementia Status: Chronic (5) HTN (hypertension) Status: Chronic (6) COPD (chronic obstructive pulmonary disease) Status: Chronic (7) History of CVA (cerebrovascular accident) Status: Chronic (8) Headache Status: Resolved (9) Encephalopathy Status: Acute (10) History of laminectomy Status: Acute - Assessment and Plan (Free Text) Plan: can not have MRI Brain due to PPM , Cardiac , Neurology consult appreciated , continue current Tx
--- NOTE | 2017-03-15 17:19 | CT ---
PROCEDURE: CT lumbar spine dated 03/15/2017 No prior study available comparison HISTORY: Radiculopathy. TECHNIQUE: Contiguous helical/transaxial computed tomography images were obtained of the lumbar spine without the use of intravenous contrast. Coronal and sagittal reformatted images were created and reviewed. Radiation dose: Total exam DLP = 1430.06 mGy-cm. This CT exam was performed using one or more of the following dose reduction techniques: Automated exposure control, adjustment of the mA and/or kV according to patient size, and/or use of iterative reconstruction technique. FINDINGS: VERTEBRAE: The current study reveals no acute compression fractures no retropulsed fragments. There has been of discectomy L5-S1 level of with prostatic disc and presumed [place] bone graft material in the L5-S1 disc space. There has also been right sided laminectomy at the L5 level. Posterior fixation accomplished by placement of short segment bilateral [place] rods which are attached to the posterior elements of the right and left L5 and S1 segments. Note that the fixation hardware results in significant streak and beam hardening artifact obscuring fine soft tissue and bone detail. The facet joints do appear hypertrophic at this the level with productive changes and surrounding heterotopic bone. . There is mild posterior disc space narrowing with irregular osteophytic ridge. The central canal appears quite stenotic along the superior margin of the disc space level. Exit foramina are also stenotic bilaterally more so on the left side. At the L4-L5 level, there is moderate posterior disc space narrowing with vacuum disc phenomena. Broad-based disc ridge complex extends into the proximal inferior margins of both exit foramina. Facet joints are hypertrophic. There is resultant significant bilateral lateral recess and mild central canal stenosis, measured at midline however note that the buckled ligamentum flavum and overgrown facets at compress the posterolateral borders of the thecal sac. . Exit foramina are narrowed bilaterally. At the L3-L4 level, there is disc space narrowing more so along the posterior disc margin with endplate eburnation and osteophytic ridge disc complex that extends into the proximal inferior margins of both exit foramina. Facets are hypertrophic and flavum buckled. There is resultant significant bilateral lateral recess and central canal stenosis. Exit foramina are narrowed bilaterally more so on the right. . At the L2-L3 level, there is mild posterior disc space narrowing. Small broad-based disc ridge complex extends slightly into the proximal inferior margins of both exit foramina more so on the right. . The facet joints also hypertrophic and flavum somewhat buckled. There is resultant moderate central canal stenosis. Exit foramina appear adequate. Note made of the fusion changes of the SI joints bilaterally. Note made of approximately 5.1 mm elliptical shaped nonobstructing calculus midpole left kidney. There appears to be irregular irregular cortical scarring left kidney. IMPRESSION: No acute compression fractures no retropulsed fragments. Postoperative changes of right-sided laminectomy L5 level with discectomy and posterior fusion L5-S1 level. Multilevel degenerative spondylosis most as detailed above.
--- NOTE | 2017-03-15 18:33 | CARD ---
APPROVED REPORT EKG Measurement Heart [id number] <Conclusion> Sinus rhythm with 1st degree AV block ST & T wave abnormality, consider lateral ischemia Prolonged QT Abnormal ECG
[2017-03-15] MEDS: Albuterol-Ipratrop 3 mg / 0.5 (3 ml) UD INH SCH (19:13)
[2017-03-15] MEDS: Pantoprazole 40 mg EC Tab PO SCH (21:35)
--- NOTE | 2017-03-16 00:14 | CP.PCM.PN ---
<Dimitris Moore Catrachita - Last Filed: 03/16/17 00:07> Subjective - Date & Time of Evaluation Date of Evaluation: 03/16/17 Time of Evaluation: 00:07 - Subjective Subjective: Patient has abnormal CT L.S Spine, as he was found to have a Cardiac pacemaker that prevent him from having MRI of the Brain or the spine or any MRI of the Body. We are trying to understand the reason for his inability to walk. CT C Spine is showing 2 disc herniation, it was done recently. Current CT LS spine is abnormal. CT LS Spine without Contrast is showing: No acute compression fractures no retropulsed fragments. Postoperative changes of right-sided laminectomy L5 level with discectomy and posterior fusion L5-S1 level. Multilevel degenerative spondylosis most as detailed above. There is no change in his condition, awake, alert Oriented X 3 Difficulty walking or mostly inability to walk. Objective - Vital Signs/Intake and Output Vital Signs (last 24 hours): Temp Pulse Resp BP Pulse Ox 97.6 F 66 17 142/71 99 03/15/17 20:10 03/15/17 20:10 03/15/17 20:10 03/15/17 20:10 03/15/17 20:10 - Medications Medications: Current Medications Acetaminophen (Tylenol 325mg Tab) 650 mg PO Q4 PRN PRN Reason: Headache Last Admin: 03/15/17 16:48 Dose: 650 mg Albuterol/Ipratropium (Duoneb 3 Mg/0.5 Mg (3 Ml) Ud) 3 ml INH RTID [facility] Last Admin: 03/15/17 19:13 Dose: 3 ml Atorvastatin Calcium (Lipitor) 40 mg PO [facility] Last Admin: 03/15/17 21:34 Dose: 40 mg Buspirone HCl (Buspar) 5 mg PO Q12H [facility] Last Admin: 03/14/17 23:45 Dose: Not Given Donepezil HCl (Aricept) 5 mg PO DAILY [facility] Last Admin: 03/14/17 09:42 Dose: 5 mg Finasteride (Proscar) 5 mg PO [facility] Last Admin: 03/15/17 21:35 Dose: 5 mg Metoprolol Tartrate (Lopressor) 50 mg PO Q12H [facility] Last Admin: 03/15/17 15:11 Dose: 50 mg Mirtazapine (Remeron) 15 mg PO [facility] Last Admin: 03/14/17 23:45 Dose: Not Given Montelukast Sodium (Singulair) 10 mg PO HS [facility] Last Admin: 03/15/17 21:35 Dose: 10 mg Pantoprazole Sodium (Protonix Ec Tab) 40 mg PO HS [facility] Last Admin: 03/15/17 21:35 Dose: 40 mg Tamsulosin HCl (Flomax) 0.4 mg PO HS [facility] Last Admin: 03/15/17 21:34 Dose: 0.4 mg Valsartan (Diovan) 80 mg PO DAILY [facility] Last Admin: 03/15/17 09:22 Dose: 80 mg Zolpidem Tartrate (Ambien) 5 mg PO HS PRN PRN Reason: Sleep Last Admin: 03/14/17 00:26 Dose: 5 mg - Labs Labs: 03/14/17 05:15 03/14/17 05:15 PT 11.0 Seconds (9.8-13.1) 03/13/17 14:40 INR 1.0 (0.9-1.2) 03/13/17 14:40 APTT 22.0 Seconds (25.6-37.1) L 03/13/17 14:40 Assessment and Plan (1) Lightheadedness Status: Acute (2) Unsteady gait Status: Deleted (3) Chest pain Status: Acute (4) Dizziness Status: Acute (5) Headache Status: Acute (6) Dementia Status: Acute (7) Inability to walk Status: Acute (8) BPH (benign prostatic hyperplasia) Status: Acute (9) CVA (cerebral vascular accident) Status: Acute <Mynor Kern - Last Filed: 03/16/17 21:32> Objective - Vital Signs/Intake and Output Vital Signs (last 24 hours): Temp Pulse Resp BP Pulse Ox 98.4 F 64 18 129/66 96 03/16/17 19:26 03/16/17 19:26 03/16/17 19:26 03/16/17 19:26 03/16/17 19:26 - Medications Medications: Current Medications Acetaminophen (Tylenol 325mg Tab) 650 mg PO Q4 PRN PRN Reason: Headache Last Admin: 03/15/17 16:48 Dose: 650 mg Albuterol/Ipratropium (Duoneb 3 Mg/0.5 Mg (3 Ml) Ud) 3 ml INH RTID [facility] Last Admin: 03/16/17 19:12 Dose: 3 ml Atorvastatin Calcium (Lipitor) 40 mg PO HS [facility] Last Admin: 03/15/17 21:34 Dose: 40 mg Buspirone HCl (Buspar) 5 mg PO Q12H [facility] Last Admin: 03/14/17 23:45 Dose: Not Given Donepezil HCl (Aricept) 5 mg PO DAILY [facility] Last Admin: 03/14/17 09:42 Dose: 5 mg Finasteride (Proscar) 5 mg PO HS [facility] Last Admin: 03/15/17 21:35 Dose: 5 mg Dextrose/Sodium Chloride (Dextrose 5%/0.45% Ns 1000 Ml) 1,000 mls @ 80 mls/hr IV .[id number] [facility] Stop: 03/17/17 15:37 Last Admin: 03/16/17 15:45 Dose: 80 mls/hr Lorazepam (Ativan) 2 mg IVP Q6 PRN PRN Reason: Seizure activity Metoprolol Tartrate (Lopressor) 50 mg PO Q12H [facility] Last Admin: 03/16/17 12:00 Dose: Not Given Mirtazapine (Remeron) 15 mg PO HS [facility] Last Admin: 03/14/17 23:45 Dose: Not Given Montelukast Sodium (Singulair) 10 mg PO HS [facility] Last Admin: 03/15/17 21:35 Dose: 10 mg Pantoprazole Sodium (Protonix Ec Tab) 40 mg PO HS [facility] Last Admin: 03/15/17 21:35 Dose: 40 mg Phenytoin Sodium (Dilantin) 100 mg PO Q8 [facility] Tamsulosin HCl (Flomax) 0.4 mg PO HS [facility] Last Admin: 03/15/17 21:34 Dose: 0.4 mg Valsartan (Diovan) 80 mg PO DAILY [facility] Last Admin: 03/16/17 09:00 Dose: 80 mg Zolpidem Tartrate (Ambien) 5 mg PO HS PRN PRN Reason: Sleep Last Admin: 03/14/17 00:26 Dose: 5 mg - Labs Labs: 03/14/17 05:15 03/16/17 10:10 PT 11.0 Seconds (9.8-13.1) 03/13/17 14:40 INR 1.0 (0.9-1.2) 03/13/17 14:40 APTT 22.0 Seconds (25.6-37.1) L 03/13/17 14:40
[2017-03-16] MEDS: Albuterol-Ipratrop 3 mg / 0.5 (3 ml) UD INH SCH ×3 (07:19→19:12)
--- NOTE | 2017-03-16 09:07 | CP.PCM.PN ---
Subjective - Date & Time of Evaluation Date of Evaluation: 03/16/17 Time of Evaluation: 09:00 - Subjective Subjective: Pt extremely drowsy, difficult to arouse Answers to loud calling BP 144/70 mm Hg Had a bout of irregular rapid burst of wide complexes (? a fib with aberrency), spontaneously resolving to NSR Pt remained asymptomatic and had no hemodynamic instability around this occurence will get EKG (?? QTC, while on Aricept, Buspar and Remeron) Will check for Electrolyte abn Objective - Vital Signs/Intake and Output Vital Signs (last 24 hours): Temp Pulse Resp BP Pulse Ox 97.8 F 57 L 18 145/65 97 03/16/17 08:23 03/16/17 08:23 03/16/17 08:23 03/16/17 08:23 03/16/17 08:23 - Medications Medications: Current Medications Acetaminophen (Tylenol 325mg Tab) 650 mg PO Q4 PRN PRN Reason: Headache Last Admin: 03/15/17 16:48 Dose: 650 mg Albuterol/Ipratropium (Duoneb 3 Mg/0.5 Mg (3 Ml) Ud) 3 ml INH RTID [facility] Last Admin: 03/16/17 07:19 Dose: 3 ml Atorvastatin Calcium (Lipitor) 40 mg PO HS [facility] Last Admin: 03/15/17 21:34 Dose: 40 mg Buspirone HCl (Buspar) 5 mg PO Q12H [facility] Last Admin: 03/14/17 23:45 Dose: Not Given Donepezil HCl (Aricept) 5 mg PO DAILY [facility] Last Admin: 03/14/17 09:42 Dose: 5 mg Finasteride (Proscar) 5 mg PO HS [facility] Last Admin: 03/15/17 21:35 Dose: 5 mg Metoprolol Tartrate (Lopressor) 50 mg PO Q12H [facility] Last Admin: 03/16/17 02:24 Dose: 50 mg Mirtazapine (Remeron) 15 mg PO HS [facility] Last Admin: 03/14/17 23:45 Dose: Not Given Montelukast Sodium (Singulair) 10 mg PO HS [facility] Last Admin: 03/15/17 21:35 Dose: 10 mg Pantoprazole Sodium (Protonix Ec Tab) 40 mg PO HS [facility] Last Admin: 03/15/17 21:35 Dose: 40 mg Tamsulosin HCl (Flomax) 0.4 mg PO HS [facility] Last Admin: 03/15/17 21:34 Dose: 0.4 mg Valsartan (Diovan) 80 mg PO DAILY [facility] Last Admin: 03/15/17 09:22 Dose: 80 mg Zolpidem Tartrate (Ambien) 5 mg PO HS PRN PRN Reason: Sleep Last Admin: 03/14/17 00:26 Dose: 5 mg - Labs Labs: 03/14/17 05:15 03/14/17 05:15 PT 11.0 Seconds (9.8-13.1) 03/13/17 14:40 INR 1.0 (0.9-1.2) 03/13/17 14:40 APTT 22.0 Seconds (25.6-37.1) L 03/13/17 14:40
[2017-03-16 10:49] LABS: BLOOD UREA NITROGEN 15 mg/dl (9-20); CALCIUM 9.3 mg/dL (8.4-10.2); GFR AFRICAN-AMERICAN > 60; GFR NON-AFRICAN AMERICAN > 60
--- NOTE | 2017-03-16 14:09 | CP.PCM.PN ---
Subjective - Date & Time of Evaluation Date of Evaluation: 03/16/17 Time of Evaluation: 13:00 - Subjective Subjective: Hardly arousable, confused when awake Objective - Vital Signs/Intake and Output Vital Signs (last 24 hours): Temp Pulse Resp BP Pulse Ox 97.6 F 54 L 18 143/61 98 03/16/17 12:48 03/16/17 12:48 03/16/17 12:48 03/16/17 12:48 03/16/17 12:48 - Medications Medications: Current Medications Acetaminophen (Tylenol 325mg Tab) 650 mg PO Q4 PRN PRN Reason: Headache Last Admin: 03/15/17 16:48 Dose: 650 mg Albuterol/Ipratropium (Duoneb 3 Mg/0.5 Mg (3 Ml) Ud) 3 ml INH RTID [facility] Last Admin: 03/16/17 13:07 Dose: 3 ml Atorvastatin Calcium (Lipitor) 40 mg PO HS [facility] Last Admin: 03/15/17 21:34 Dose: 40 mg Buspirone HCl (Buspar) 5 mg PO Q12H [facility] Last Admin: 03/14/17 23:45 Dose: Not Given Donepezil HCl (Aricept) 5 mg PO DAILY [facility] Last Admin: 03/14/17 09:42 Dose: 5 mg Finasteride (Proscar) 5 mg PO HS [facility] Last Admin: 03/15/17 21:35 Dose: 5 mg Metoprolol Tartrate (Lopressor) 50 mg PO Q12H [facility] Last Admin: 03/16/17 02:24 Dose: 50 mg Mirtazapine (Remeron) 15 mg PO HS [facility] Last Admin: 03/14/17 23:45 Dose: Not Given Montelukast Sodium (Singulair) 10 mg PO HS [facility] Last Admin: 03/15/17 21:35 Dose: 10 mg Pantoprazole Sodium (Protonix Ec Tab) 40 mg PO HS [facility] Last Admin: 03/15/17 21:35 Dose: 40 mg Tamsulosin HCl (Flomax) 0.4 mg PO HS [facility] Last Admin: 03/15/17 21:34 Dose: 0.4 mg Valsartan (Diovan) 80 mg PO DAILY [facility] Last Admin: 03/15/17 09:22 Dose: 80 mg Zolpidem Tartrate (Ambien) 5 mg PO HS PRN PRN Reason: Sleep Last Admin: 03/14/17 00:26 Dose: 5 mg - Labs Labs: 03/14/17 05:15 03/16/17 10:10 PT 11.0 Seconds (9.8-13.1) 03/13/17 14:40 INR 1.0 (0.9-1.2) 03/13/17 14:40 APTT 22.0 Seconds (25.6-37.1) L 03/13/17 14:40 - Constitutional Appears: Chronically Ill - Head Exam Head Exam: NORMAL INSPECTION - Eye Exam Eye Exam: PERRL - ENT Exam ENT Exam: Normal Exam - Neck Exam Neck Exam: Normal Inspection - Respiratory Exam Respiratory Exam: Decreased Breath Sounds (at bases) - Cardiovascular Exam Cardiovascular Exam: REGULAR RHYTHM - GI/Abdominal Exam GI & Abdominal Exam: Soft, Normal Bowel Sounds - Back Exam Additional comments: healed scars - Neurological Exam Additional comments: lethargic , hardly arousable , generalized weakness L>R - Skin Skin Exam: Warm Assessment and Plan (1) Encephalopathy Status: Acute (2) Chest pain Status: Resolved (3) Anxiety and depression Status: Chronic (4) Generalized weakness Status: Chronic (5) Dementia Status: Chronic (6) HTN (hypertension) Status: Chronic (7) COPD (chronic obstructive pulmonary disease) Status: Chronic (8) History of CVA (cerebrovascular accident) Status: Chronic (9) Headache Status: Resolved (10) History of laminectomy Status: Acute (11) Cardiac arrhythmia Status: Acute - Assessment and Plan (Free Text) Plan: had burst of irregular wide complex there after back o RSR continue lethargic , Cardiology and Neurology f/u appreciated, continue treatment, f/u CT Head in am
[2017-03-16] MEDS ORDERED: Dextrose 5%/0.45% NS 1,000 ML IV SCH (15:45)
--- NOTE | 2017-03-16 21:07 | CT ---
EXAM: CT Head Without Intravenous Contrast EXAM DATE/TIME: 03/16/2017 8:06 PM CLINICAL HISTORY: 86 years old, male; Signs and symptoms; Alteration of consciousness; Somnolence (drowsiness); Additional info: Pt drowsy TECHNIQUE: Axial computed tomography images of the head/brain without intravenous contrast. All CT scans at this facility use one or more dose reduction techniques, viz.: automated exposure control; ma/kV adjustment per patient size (including targeted exams where dose is matched to indication; i.e. head); or iterative reconstruction technique. Coronal and sagittal reformatted images were created and reviewed. COMPARISON: Prior head CT of 2017-03-13 FINDINGS: BRAIN: Compared to the prior head CT, there has been interval development of a large 10 x 6 cm area of low density in the right occipital, posterior parietal, and posterior temporal lobes, involving the cortex and white matter, geographic margins. Findings are most compatible with edema secondary to an acute or subacute infarct, involving the right posterior cerebral artery territory. There has also been interval development of multiple large acute or subacute lacunar infarcts in the right basal ganglia, involving the right thalamus, caudate head, and anterior limb of the internal capsule. There is associated mild mass effect. There is mild effacement of the right lateral ventricle and the basilar cisterns on the right. There is also diffuse sulcal effacement in the right occipital and posterior temporal lobes. No evidence of midline shift. Otherwise, no significant new findings are seen in the brain. Stable appearance of multiple old/chronic bilateral lacunar infarcts and chronic ischemic changes in the white matter. Stable marked, diffuse age-related atrophy ventriculomegaly. No acute hemorrhage seen within the brain. No acute extra-axial fluid collections visualized. VENTR tube ICLES: See above. BONES/JOINTS: No acute fractures or other acute bony abnormality noted. SOFT TISSUES: No acute abnormality of the visualized soft tissues is seen. VASCULATURE: Atherosclerotic calcification. SINUSES: Visualized paranasal sinuses appear clear. MASTOID AIR CELLS: Mastoid air cells appear clear. IMPRESSION: - Compared to a head CT done 3 days prior, interval development of a large area of edema in the right occipital, posterior parietal and posterior temporal lobes, most compatible with an acute or subacute right [employer] territory infarct. - Interval development of multiple acute or subacute lacunar infarcts in the right basal ganglia. - Associated mild intracranial mass effect is seen, as described, with no evidence of midline shift. - No evidence of acute intracranial hemorrhage. - See above for remaining findings.
--- NOTE | 2017-03-16 21:30 | CP.CCUPN ---
CCU Subjective - Physician Review Events Since Last Encounter (Free Text): 03/16/17 21:30 CC/reason for ICU: Acute vs. subacute [employer] infarction with associated edema and mass effect. Brief history: 86 y/o male with multiple medical conditions who was admitted here several days ago with chest pain. He was being worked up for CV disease, and for his LE weakness it appears. He was found to be more drowsy today, and another CT head was ordered, which showed acute/subacute [employer] territory CVA. Patient is being moved to ICU for close observation and for airway management if necessary. Patient will also be started on medications to treat increased IC edema. 03/16/17 22:24 CCU Objective - Vital Signs / Intake & Output Vital Signs (Last 4 hours): Vital Signs Temp Pulse Resp BP Pulse Ox 03/16/17 19:26 98.4 F 64 18 129/66 96 - Physical Exam Physical Exam Limitations: Positive for: Altered Mental Status Head: Positive for: Atraumatic, Normocephalic Pupils: Positive for: PERRL Mouth: Positive for: Moist Mucous Membranes Respiratory/Chest: Positive for: Clear to Auscultation Cardiovascular: Positive for: Regular Rate and Rhythm, Normal S1, S2 Abdomen: Positive for: Normal Bowel Sounds Neurological: Positive for: Other (Patient very somnolent, only follows some commands.) Psychiatric: Positive for: Lethargic - Medications Active Medications: Active Medications Generic Name Dose Route Start Last Admin Trade Name Freq PRN Reason Stop Dose Admin Acetaminophen 650 mg 03/15/17 16:39 03/15/17 16:48 Tylenol 325mg Tab PO 650 mg Q4 PRN Administration Headache Albuterol/Ipratropium 3 ml 03/15/17 20:00 03/16/17 19:12 Duoneb 3 Mg/0.5 Mg (3 Ml) Ud INH 3 ml RTID [facility] Administration Atorvastatin Calcium 40 mg 03/13/17 23:45 03/15/17 21:34 Lipitor PO 40 mg HS [facility] Administration Buspirone HCl 5 mg 03/13/17 23:45 03/14/17 23:45 Buspar PO Not Given Q12H [facility] Donepezil HCl 5 mg 03/14/17 09:00 03/14/17 09:42 Aricept PO 5 mg DAILY [facility] Administration Finasteride 5 mg 03/13/17 23:45 03/15/17 21:35 Proscar PO 5 mg HS [facility] Administration Dextrose/Sodium Chloride 1,000 mls @ 80 mls/hr 03/16/17 15:45 03/16/17 15:45 Dextrose 5%/0.45% Ns 1000 Ml IV 03/17/17 15:37 80 mls/hr .[id number] [facility] Administration Lorazepam 2 mg 03/16/17 20:43 Ativan IVP Q6 PRN Seizure activity Metoprolol Tartrate 50 mg 03/13/17 23:45 03/16/17 12:00 Lopressor PO Not Given Q12H [facility] Mirtazapine 15 mg 03/13/17 23:45 03/14/17 23:45 Remeron PO Not Given HS [facility] Montelukast Sodium 10 mg 03/13/17 23:45 03/15/17 21:35 Singulair PO 10 mg HS [facility] Administration Pantoprazole Sodium 40 mg 03/14/17 00:15 03/15/17 21:35 Protonix Ec Tab PO 40 mg HS [facility] Administration Phenytoin Sodium 100 mg 03/17/17 01:00 Dilantin PO Q8 [facility] Tamsulosin HCl 0.4 mg 03/13/17 23:45 03/15/17 21:34 Flomax PO 0.4 mg HS [facility] Administration Valsartan 80 mg 03/14/17 09:00 03/16/17 09:00 Diovan PO 80 mg DAILY [facility] Administration Zolpidem Tartrate 5 mg 03/13/17 23:59 03/14/17 00:26 Ambien PO 5 mg HS PRN Administration Sleep - Patient Studies Lab Studies: Lab Studies 03/16/17 Range/Units 10:10 Sodium 131 L (132-148) mmol/l Potassium 3.6 (3.6-5.0) MMOL/L Chloride 93 L (98-107) mmol/L Carbon Dioxide 27 (22-30) mmol/L Anion Gap 15 (10-20) BUN 15 (9-20) mg/dl Creatinine 0.7 L (0.8-1.5) mg/dl Est GFR ( Amer) > 60 Est GFR (Non-Af Amer) > 60 Random Glucose 159 H (75-110) mg/dL Calcium 9.3 (8.4-10.2) mg/dL Laboratory Results - last 24 hr 03/16/17 10:10 Sodium 131 L Potassium 3.6 Chloride 93 L Carbon Dioxide 27 Anion Gap 15 BUN 15 Creatinine 0.7 L Est GFR ( Amer) > 60 Est GFR (Non-Af Amer) > 60 Random Glucose 159 H Calcium 9.3 EKG/Cardiology Studies: Cardiology / EKG Studies 03/16/17 EKG [ELECTROCARDIOGRAM] Routine Comment: Mode Of Transportation: PORTABLE Reason For Exam: Arrhythmia - Procedures Procedures (Free Text): 03/16/17 21:32 CT head today showed acute vs subacute [employer] infarct with associated edema. Acute vs subacute R basal infarct. Some mass effect, no midline shift. Critical Care Progress Note - Nutrition Nutrition: Nutrition Category Date Time Status Heart Healthy Diet [DIET] Diets 03/15/17 Breakfast Active Assessment/Plan (1) CVA (cerebral vascular accident) Assessment and plan: 86 y/o male with [employer] infarct with associated edema and mass effect and with decreased mental status. -Transfer to ICU -Discussed with neuro and will begin following: --Mannitol 1g/kg (80 g IV total) x 1, followed by 20 g IV q6h; Will check serum osms q6h and aim for goal 300-320 --Decadron 4 mg IV q6h --ASA 81 mg daily -q6h accucheck; SSI as necessary -Hold BP medications and let BP run to higher side for increased IC perfusion -Protonix for GI PPx -NPO for now other than medications. Current Visit: Yes Status: Acute
[2017-03-16] MEDS ORDERED: Dexamethasone 4 MG in Sodium Chloride 0.9% 50 ML IVPB SCH (22:15)
[2017-03-16] MEDS ORDERED: Mannitol 12.5 gm/50 ml Inj IV ONE (22:45)
[2017-03-16] MEDS: Dexamethasone 4 mg/1 ml IVP SCH (22:55)
[2017-03-16] MEDS ORDERED: MANNITOL IV ONE (23:00)
[2017-03-16] MEDS: Pantoprazole 40 mg EC Tab PO SCH (23:17)
--- NOTE | 2017-03-17 00:44 | CP.CCUPN ---
CCU Objective - Vital Signs / Intake & Output Vital Signs (Last 4 hours): Vital Signs Temp Pulse Resp BP Pulse Ox 03/16/17 23:30 81 16 124/63 100 03/16/17 23:00 81 20 139/61 92 L 03/16/17 22:30 84 13 123/40 L 94 L 03/16/17 22:00 98 F 63 11 L 140/70 99 03/16/17 21:30 74 18 140/70 93 L Intake and Output (Last 8hrs): Intake & Output 03/16/17 03/16/17 03/17/17 14:59 22:59 06:59 Intake Total 500 Balance 500 Intake: Intake, Piggyback 500 Oral 0 Other: # Bowel Movements 0 - Physical Exam Head: Positive for: Atraumatic, Normocephalic Pupils: Positive for: PERRL Mouth: Positive for: Moist Mucous Membranes Respiratory/Chest: Positive for: Clear to Auscultation Cardiovascular: Positive for: Regular Rate and Rhythm, Normal S1, S2 Abdomen: Positive for: Normal Bowel Sounds Neurological: Positive for: Other (Patient very somnolent, only follows some commands.) Psychiatric: Positive for: Lethargic - Medications Active Medications: Active Medications Generic Name Dose Route Start Last Admin Trade Name Freq PRN Reason Stop Dose Admin Acetaminophen 650 mg 03/15/17 16:39 03/15/17 16:48 Tylenol 325mg Tab PO 650 mg Q4 PRN Administration Headache Albuterol/Ipratropium 3 ml 03/15/17 20:00 03/16/17 19:12 Duoneb 3 Mg/0.5 Mg (3 Ml) Ud INH 3 ml RTID [facility] Administration Atorvastatin Calcium 40 mg 03/13/17 23:45 03/16/17 23:17 Lipitor PO Not Given HS [facility] Buspirone HCl 5 mg 03/13/17 23:45 03/14/17 23:45 Buspar PO Not Given Q12H [facility] Dexamethasone 4 mg 03/16/17 22:30 03/16/17 22:55 Decadron Inj IVP 4 mg Q6 [facility] Administration Donepezil HCl 5 mg 03/14/17 09:00 03/14/17 09:42 Aricept PO 5 mg DAILY [facility] Administration Finasteride 5 mg 03/13/17 23:45 01/27/18 23:17 Proscar PO Not Given HS [facility] Lorazepam 2 mg 03/16/17 20:43 Ativan IVP Q6 PRN Seizure activity Mannitol 20 gm 03/17/17 04:00 Mannitol IV Q6H [facility] Mirtazapine 15 mg 03/13/17 23:45 03/14/17 23:45 Remeron PO Not Given HS [facility] Montelukast Sodium 10 mg 03/13/17 23:45 03/16/17 23:17 Singulair PO Not Given HS [facility] Pantoprazole Sodium 40 mg 03/17/17 09:00 Protonix Inj IVP DAILY [facility] Phenytoin Sodium 100 mg 03/17/17 01:00 Dilantin PO Q8 [facility] Tamsulosin HCl 0.4 mg 03/13/17 23:45 03/16/17 23:16 Flomax PO Not Given HS [facility] Zolpidem Tartrate 5 mg 03/13/17 23:59 03/14/17 00:26 Ambien PO 5 mg HS PRN Administration Sleep - Patient Studies Lab Studies: Lab Studies 03/16/17 Range/Units 10:10 Sodium 131 L (132-148) mmol/l Potassium 3.6 (3.6-5.0) MMOL/L Chloride 93 L (98-107) mmol/L Carbon Dioxide 27 (22-30) mmol/L Anion Gap 15 (10-20) BUN 15 (9-20) mg/dl Creatinine 0.7 L (0.8-1.5) mg/dl Est GFR ( Amer) > 60 Est GFR (Non-Af Amer) > 60 Random Glucose 159 H (75-110) mg/dL Calcium 9.3 (8.4-10.2) mg/dL Laboratory Results - last 24 hr 03/16/17 10:10 Sodium 131 L Potassium 3.6 Chloride 93 L Carbon Dioxide 27 Anion Gap 15 BUN 15 Creatinine 0.7 L Est GFR ( Amer) > 60 Est GFR (Non-Af Amer) > 60 Random Glucose 159 H Calcium 9.3 EKG/Cardiology Studies: Cardiology / EKG Studies 03/16/17 EKG [ELECTROCARDIOGRAM] Routine Comment: Mode Of Transportation: PORTABLE Reason For Exam: Arrhythmia Fingerstick Blood Sugar Results: 178 Critical Care Progress Note - Nutrition Nutrition: Nutrition Category Date Time Status NPO Diet [DIET] Diets 03/16/17 Breakfast Active Assessment/Plan (1) CVA (cerebral vascular accident) Assessment and plan: 86 y/o male with [employer] infarct with associated edema and mass effect and with decreased mental status. -Transfer to ICU -Discussed with neuro and will begin following: --Mannitol 1g/kg (80 g IV total) x 1, followed by 20 g IV q6h; Will check serum osms q6h and aim for goal 300-320 --Decadron 4 mg IV q6h --ASA 81 mg daily -q6h accucheck; SSI as necessary -Hold BP medications and let BP run to higher side for increased IC perfusion -Protonix for GI PPx -NPO for now other than medications. Current Visit: Yes Status: Acute NIHSS Stroke Scale - Date/Time Evaluation Performed Date Performed: 03/16/17 Time Performed: 21:30 - How Severe is the Stroke Level of Consciousness: 1=Drowsy LOC to Questions: 2=Neither correct LOC to commands: 2=Neither correct Facial: 0=Normal Motor Arm - Left: 3=No effort against gravity (falls immediately) Motor Arm - Right: 3=No effort against gravity (falls immediately) Motor Leg - Left: 3=No effort against gravity (falls immediately) Motor Leg - Right: 3=No effort against gravity (falls immediately) Limb Ataxia: 0=Absent Best Language: 3=Mute Severity Of Stroke: 16-20 = Moderate/Severe Stroke (It is difficult to get an accurate NIHSS assessment as patient is not following commands and it is unclear whether he physically can or cannot perform the actions requested)
--- NOTE | 2017-03-17 01:04 | CP.PCM.PN ---
Subjective - Date & Time of Evaluation Date of Evaluation: 03/17/17 Time of Evaluation: 00:10 - Subjective Subjective: I was called at 20:40 PM by his nurse mentioning that Dr Dahl saw him at 14:[address] Patrick of Cardiology saw him at 9:03 AM and they both noticed that he is not active and that he is lethargic and is not moving like his baseline. I ordered immediately a CT Brain without Contrast to R/O CVA, as he has a history of CVA in the Past and had mild Hemiparesis as a result. I also considered a possibility of Seizures on top of his previous Stroke , as his old CVA might be a focus of seizures. I ordered to load him with IV Cerebyx 1 gm over 20 to 25 min and to measure his Dilantin level in Blood after 12 hrs from the initial dose of Cerebyx. The patient was not a candidate for TPA as he was out of window as the onset of his symptoms was way before 9 Am on 03/16/2017. Patient current condition is showing that he is able to talk to his family by phone, move his Right Upper and Lower Extremities, however his movements of the Left Upper and Lower extremities were weak at 2 to 3/5. His speech was weak but understood. I was unable to assess his Orientation and his memory. His cranial nerves exam from II to XII showing minimal changes of left facial asymmetry. His tone was normal on the right, mildly increased on the left showing mild spasticity. His DTR were 0/4 his toes were down going on the right and equivocal on the left side. His sensation was intact on both sides,, slightly reduced on the left side in both UEs and LEs Cerebellar exam: I was unable to assess. Stature and Gait; He is unable to stand or walk. 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 - Interval development of multiple acute or subacute lacunar infarcts in the right basal ganglia. - Associated mild intracranial mass effect is seen, as described, with no evidence of midline shift. - No evidence of acute intracranial hemorrhage. - See above for remaining findings. We are getting an EEG and will continue his IV Cerebyx at 100 mg Q 8 hrs after we get his Dilantin level. We will OT, PT and ST and will assess his swallowing. His labs are showing low Na and Cl, will repeat his labs for Na, Cl and other important tests. 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 He will stay in ICU for the time being until improvement. We started him on IV Decadron and IV Mannitol Q 6 hrs to reduce his brain Edema, checking for serum Osmolality and Urine Osmolarity. Will observe his BP and hold Antihypertensives to allow Brain Perfusion and avoid hypo tension. Condition is discussed with Dr Kern mortgage processor and the nurses on board. Radiologist suggests that a cardiac Shower of Emboli could have caused his current evolution. He needs Echo and Cardiac studies. Objective - Vital Signs/Intake and Output Vital Signs (last 24 hours): Temp Pulse Resp BP Pulse Ox 98 F 81 16 124/63 100 03/16/17 22:00 03/16/17 23:30 03/16/17 23:30 03/16/17 23:30 03/16/17 23:30 Intake and Output: 03/16/17 03/17/17 18:59 06:59 Intake Total 500 Balance 500 - Medications Medications: Current Medications Acetaminophen (Tylenol 325mg Tab) 650 mg PO Q4 PRN PRN Reason: Headache Last Admin: 03/15/17 16:48 Dose: 650 mg Albuterol/Ipratropium (Duoneb 3 Mg/0.5 Mg (3 Ml) Ud) 3 ml INH RTID [facility] Last Admin: 03/16/17 19:12 Dose: 3 ml Atorvastatin Calcium (Lipitor) 40 mg PO HS [facility] Last Admin: 03/16/17 23:17 Dose: Not Given Buspirone HCl (Buspar) 5 mg PO Q12H [facility] Last Admin: 03/14/17 23:45 Dose: Not Given Dexamethasone (Decadron Inj) 4 mg IVP Q6 [facility] Last Admin: 03/16/17 22:55 Dose: 4 mg Donepezil HCl (Aricept) 5 mg PO DAILY [facility] Last Admin: 03/14/17 09:42 Dose: 5 mg Finasteride (Proscar) 5 mg PO HS [facility] Last Admin: 03/16/17 23:17 Dose: Not Given Lorazepam (Ativan) 2 mg IVP Q6 PRN PRN Reason: Seizure activity Mannitol (Mannitol) 20 gm IV Q6H [facility] Mirtazapine (Remeron) 15 mg PO HS [facility] Last Admin: 03/14/17 23:45 Dose: Not Given Montelukast Sodium (Singulair) 10 mg PO HS [facility] Last Admin: 03/16/17 23:17 Dose: Not Given Pantoprazole Sodium (Protonix Inj) 40 mg IVP DAILY [facility] Phenytoin Sodium (Dilantin) 100 mg PO Q8 [facility] Tamsulosin HCl (Flomax) 0.4 mg PO HS [facility] Last Admin: 03/16/17 23:16 Dose: Not Given Zolpidem Tartrate (Ambien) 5 mg PO HS PRN PRN Reason: Sleep Last Admin: 03/14/17 00:26 Dose: 5 mg - Labs Labs: 03/14/17 05:15 03/16/17 10:10 PT 11.0 Seconds (9.8-13.1) 03/13/17 14:40 INR 1.0 (0.9-1.2) 03/13/17 14:40 APTT 22.0 Seconds (25.6-37.1) L 03/13/17 14:40 Assessment and Plan (1) Lightheadedness Status: Acute (2) Unsteady gait Status: Deleted (3) Chest pain Status: Acute (4) Dizziness Assessment & Plan: Seizures are to be ruled out as well as SIADH. Status: Acute (5) Headache Status: Acute (6) Dementia Status: Acute (7) Inability to walk Status: Acute (8) BPH (benign prostatic hyperplasia) Status: Acute (9) CVA (cerebral vascular accident) Status: Acute
[2017-03-17 01:51] LABS: URINE AMORPHOUS SEDIMENT RARE /ul (<OCC); URINE BILIRUBIN NEGATIVE (NEGATIVE); URINE BLOOD NEGATIVE (NEGATIVE); URINE CLARITY CLEAR (Clear); URINE COLOR STRAW (YELLOW); URINE GLUCOSE (UA) NEG (Normal); URINE LEUKOCYTE ESTERASE NEG Leu/uL (Negative); URINE NITRATE NEGATIVE (NEGATIVE); URINE PROTEIN NEGATIVE (NEGATIVE); URINE UROBILINOGEN 0.2-1.0 mg/dL (0.2-1.0)
[2017-03-17 01:54] VITALS: BMI 28.9
[2017-03-17] MEDS: Dexamethasone 4 mg/1 ml IVP SCH ×4 (03:09→21:47)
[2017-03-17] MEDS: Mannitol 12.5 gm/50 ml Inj IV SCH ×4 (03:18→21:55)
[2017-03-17 04:28] LABS: BLOOD UREA NITROGEN 13 mg/dl (9-20); CALCIUM 9.2 mg/dL (8.4-10.2); GFR AFRICAN-AMERICAN > 60; GFR NON-AFRICAN AMERICAN > 60; HDL CHOLESTEROL 57 MG/DL (30-70)
[2017-03-17 04:40] LABS: LDL CHOLESTEROL 67 mg/dL (0-129)
[2017-03-17] MEDS ORDERED: Sodium Chloride 0.9% 1,000 ML IV SCH (05:15)
[2017-03-17] MEDS: Albuterol-Ipratrop 3 mg / 0.5 (3 ml) UD INH SCH ×3 (07:26→19:06)
[2017-03-17 07:57] LABS: HEMOGLOBIN 14.5 g/dL (12.0-18.0); MEAN CELL VOLUME 92.1 fl (80.0-94.0); MEAN CORPUSCULAR HEMOGLOBIN 29.8 pg (27.0-31.0); MEAN CORPUSCULAR HGB CONC 32.4 g/dL (33.0-37.0); RBC 4.86 Mil/uL (4.40-5.90); RED CELL DISTRIBUTION WIDTH 13.8 % (11.5-14.5)
--- NOTE | 2017-03-17 13:01 | CT ---
PROCEDURE: CT HEAD WITHOUT CONTRAST. HISTORY: CVA with edema/mass effect COMPARISON: Comparison made with prior study 03/16/2017 TECHNIQUE: Axial computed tomography images were obtained through the head/brain without intravenous contrast. Radiation dose: Total exam DLP = 887.99 mGy-cm. This CT exam was performed using one or more of the following dose reduction techniques: Automated exposure control, adjustment of the mA and/or kV according to patient size, and/or use of iterative reconstruction technique. FINDINGS: HEMORRHAGE: No acute parenchymal, subarachnoid or extra-axial hemorrhage. BRAIN: Re- demonstrated is a large subacute right posterior cerebral artery territory infarct with involvement of the of the right basal ganglia - (posterior more so than the anterior). Infarct changes extend superiorly into the parietal watershed zone. The infarct exerts considerable mass effect with compression of overlying sulci and compression of the right atrium, occipital and right temporal horns. . There is also slight midline shift. Mild moderate diffuse/ confluent chronic white matter ischemic changes are also present not withstanding the aforementioned infarct. Moderate -significant volume loss. Vascular calcifications both carotid siphons and vertebral arteries. . VENTRICLES: No obstructive hydrocephalus. CALVARIUM: Unremarkable. PARANASAL SINUSES: Unremarkable as visualized. No significant inflammatory changes. MASTOID AIR CELLS: Unremarkable as visualized. No inflammatory changes. OTHER FINDINGS: None. IMPRESSION: Re- demonstrated is a large right DRY MIXER territory subacute infarct with infarct changes involving the right basal ganglia, more so posteriorly. Infarct also extends superiorly into the right parietal watershed zone. There is moderate surrounding mass-effect and very slight [id number] midline shift. Moderate to fairly significant chronic white matter ischemic changes as above. The moderate -significant volume loss. No acute intracranial hemorrhage.
--- NOTE | 2017-03-17 21:24 | CP.PCM.PN ---
Subjective - Date & Time of Evaluation Date of Evaluation: 03/17/17 Time of Evaluation: 11:00 - Subjective Subjective: became lethargic yesterday, had sat CT Head showing large infarct , Patient was transferred to ICU, Patient is able to recognize and talk with her homemaker at bedside, and previous aid who took care of him in [facility] , He remember me as his previous Dr, follows command, answer questions slowly Objective - Vital Signs/Intake and Output Vital Signs (last 24 hours): Temp Pulse Resp BP Pulse Ox 97.7 F 81 14 157/84 H 99 03/17/17 16:00 03/17/17 18:00 03/17/17 16:00 03/17/17 18:00 03/17/17 16:00 Intake and Output: 03/17/17 03/18/17 18:59 06:59 Intake Total 1060 Output Total 800 Balance 260 - Medications Medications: Current Medications Acetaminophen (Tylenol 325mg Tab) 650 mg PO Q4 PRN PRN Reason: Headache Last Admin: 03/15/17 16:48 Dose: 650 mg Albuterol/Ipratropium (Duoneb 3 Mg/0.5 Mg (3 Ml) Ud) 3 ml INH RTID [facility] Last Admin: 03/17/17 19:06 Dose: 3 ml Atorvastatin Calcium (Lipitor) 40 mg PO HS [facility] Last Admin: 03/16/17 23:17 Dose: Not Given Buspirone HCl (Buspar) 5 mg PO Q12H [facility] Last Admin: 03/14/17 23:45 Dose: Not Given Dexamethasone (Decadron Inj) 4 mg IVP Q6 [facility] Last Admin: 03/17/17 15:43 Dose: 4 mg Donepezil HCl (Aricept) 5 mg PO DAILY [facility] Last Admin: 03/14/17 09:42 Dose: 5 mg Finasteride (Proscar) 5 mg PO HS [facility] Last Admin: 03/16/17 23:17 Dose: Not Given Lorazepam (Ativan) 2 mg IVP Q6 PRN PRN Reason: Seizure activity Mannitol (Mannitol) 20 gm IV Q6H [facility] Last Admin: 03/17/17 16:00 Dose: 20 gm Mirtazapine (Remeron) 15 mg PO HS [facility] Last Admin: 03/14/17 23:45 Dose: Not Given Montelukast Sodium (Singulair) 10 mg PO HS [facility] Last Admin: 03/16/17 23:17 Dose: Not Given Pantoprazole Sodium (Protonix Inj) 40 mg IVP DAILY [facility] Last Admin: 03/17/17 08:33 Dose: 40 mg Phenytoin Sodium (Dilantin) 100 mg PO Q8 [facility] Last Admin: 03/17/17 08:32 Dose: Not Given Tamsulosin HCl (Flomax) 0.4 mg PO HS [facility] Last Admin: 03/16/17 23:16 Dose: Not Given Zolpidem Tartrate (Ambien) 5 mg PO HS PRN PRN Reason: Sleep Last Admin: 03/14/17 00:26 Dose: 5 mg - Labs Labs: 03/17/17 06:55 03/17/17 04:00 PT 11.0 Seconds (9.8-13.1) 03/13/17 14:40 INR 1.0 (0.9-1.2) 03/13/17 14:40 APTT 22.0 Seconds (25.6-37.1) L 03/13/17 14:40 - Constitutional Appears: Chronically Ill - Head Exam Head Exam: NORMAL INSPECTION - Eye Exam Eye Exam: PERRL - ENT Exam ENT Exam: Normal Exam - Neck Exam Neck Exam: Normal Inspection - Respiratory Exam Respiratory Exam: Clear to Ausculation Bilateral - Cardiovascular Exam Cardiovascular Exam: REGULAR RHYTHM - GI/Abdominal Exam GI & Abdominal Exam: Soft, Normal Bowel Sounds - Extremities Exam Extremities Exam: Normal Inspection - Back Exam Additional comments: healed surgical scars - Neurological Exam Neurological Exam: Alert Additional comments: AO x 2, slow mentation , L Hemiparesia , not moving LUE , moves rest of extremities on commands Assessment and Plan (1) Acute CVA (cerebrovascular accident) Status: Acute (2) Encephalopathy Status: Acute (3) Chest pain Status: Resolved (4) Anxiety and depression Status: Chronic (5) Generalized weakness Status: Chronic (6) Dementia Status: Chronic (7) HTN (hypertension) Status: Chronic (8) COPD (chronic obstructive pulmonary disease) Status: Chronic (9) History of CVA (cerebrovascular accident) Status: Chronic (10) Headache Status: Resolved (11) History of laminectomy Status: Acute (12) Cardiac arrhythmia Status: Acute - Assessment and Plan (Free Text) Plan: CT Head 03-16 and repeat today 1-28 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
[2017-03-17] MEDS ORDERED: FOSPHENYTOIN IV ONE (21:43)
[2017-03-17] MEDS ORDERED: SODIUM CHLORIDE 0.9% IV ONE (21:43)
--- NOTE | 2017-03-17 21:53 | CP.PCM.PN ---
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 Infarct also extends superiorly into the right parietal watershed zone. There is moderate surrounding mass-effect and very slight [id number] midline shift. Moderate to fairly significant chronic white matter ischemic changes as above. The moderate -significant volume loss. No acute intracranial hemorrhage. He is doing much better, moving his Right Lower extremity and Upper extremity normally, moving his Left Lower Extremity at 4/5, left Upper Extremity at 2/5 His serum Osmolality and urine Osmolality are within Normal. He is on IV Decadron4 mg Q 6 hrs and IV Mannitol 25% Q 6 hrs. He follows commands and talks at times. VS are Normal with mild fluctuations of his BP and Pulse. 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 Hb A1 C is pending A repeat CT Brain will be obtained on 03/19/2016 EEG was ordered twice, once on admission and another time after his new deterioration to R/O Seizures. He needs Vascular surgery consult for his 50 to 69 % stenosis bilaterally. Objective - Vital Signs/Intake and Output Vital Signs (last 24 hours): Temp Pulse Resp BP Pulse Ox 97.7 F 81 14 157/84 H 99 03/17/17 16:00 03/17/17 18:00 03/17/17 16:00 03/17/17 18:00 03/17/17 16:00 Intake and Output: 03/17/17 03/18/17 18:59 06:59 Intake Total 1060 Output Total 800 Balance 260 - Medications Medications: Current Medications Acetaminophen (Tylenol 325mg Tab) 650 mg PO Q4 PRN PRN Reason: Headache Last Admin: 03/15/17 16:48 Dose: 650 mg Albuterol/Ipratropium (Duoneb 3 Mg/0.5 Mg (3 Ml) Ud) 3 ml INH RTID [facility] Last Admin: 03/17/17 19:06 Dose: 3 ml Aspirin (Aspirin Supp) 300 mg [place] DAILY [facility] Atorvastatin Calcium (Lipitor) 40 mg PO HS [facility] Last Admin: 03/16/17 23:17 Dose: Not Given Buspirone HCl (Buspar) 5 mg PO Q12H [facility] Last Admin: 03/14/17 23:45 Dose: Not Given Dexamethasone (Decadron Inj) 4 mg IVP Q6 [facility] Last Admin: 03/17/17 21:47 Dose: 4 mg Donepezil HCl (Aricept) 5 mg PO DAILY [facility] Last Admin: 03/14/17 09:42 Dose: 5 mg Finasteride (Proscar) 5 mg PO HS [facility] Last Admin: 03/16/17 23:17 Dose: Not Given Fosphenytoin Sodium (Cerebyx) 100 mg IV Q8 [facility] Fosphenytoin Sodium 150 mg/ (Sodium Chloride) 103 mls @ 200 mls/hr IV ONCE ONE Stop: 03/17/17 22:21 Lorazepam (Ativan) 2 mg IVP Q6 PRN PRN Reason: Seizure activity Mannitol (Mannitol) 20 gm IV Q6H [facility] Last Admin: 03/17/17 16:00 Dose: 20 gm Mirtazapine (Remeron) 15 mg PO [facility] Last Admin: 03/14/17 23:45 Dose: Not Given Montelukast Sodium (Singulair) 10 mg PO [facility] Last Admin: 03/16/17 23:17 Dose: Not Given Pantoprazole Sodium (Protonix Inj) 40 mg IVP DAILY [facility] Last Admin: 03/17/17 08:33 Dose: 40 mg Tamsulosin HCl (Flomax) 0.4 mg PO [facility] Last Admin: 03/16/17 23:16 Dose: Not Given Zolpidem Tartrate (Ambien) 5 mg PO HS PRN PRN Reason: Sleep Last Admin: 03/14/17 00:26 Dose: 5 mg - Labs Labs: 03/17/17 06:55 03/17/17 04:00 PT 11.0 Seconds (9.8-13.1) 03/13/17 14:40 INR 1.0 (0.9-1.2) 03/13/17 14:40 APTT 22.0 Seconds (25.6-37.1) L 03/13/17 14:40 Assessment and Plan (1) Lightheadedness Status: Acute (2) Chest pain Status: Acute (3) Dizziness Status: Acute (4) Headache Status: Acute (5) Dementia Status: Acute (6) Inability to walk Status: Acute (7) BPH (benign prostatic hyperplasia) Status: Acute (8) CVA (cerebral vascular accident) Status: Acute
[2017-03-17] MEDS ORDERED: Sodium Chloride 3% 500 ML IV SCH ×2 (22:30→23:45)
[2017-03-18] MEDS: Fosphenytoin 100 mg/2 ml Inj IV SCH ×3 (02:07→17:00)
[2017-03-18] MEDS: Mannitol 12.5 gm/50 ml Inj IV SCH ×4 (04:26→21:07)
[2017-03-18] MEDS: Dexamethasone 4 mg/1 ml IVP SCH ×4 (04:26→21:07)
[2017-03-18 05:34] LABS: HEMOGLOBIN 14.1 g/dL (12.0-18.0); MEAN CELL VOLUME 92.3 fl (80.0-94.0); MEAN CORPUSCULAR HEMOGLOBIN 29.9 pg (27.0-31.0); MEAN CORPUSCULAR HGB CONC 32.4 g/dL (33.0-37.0); RBC 4.73 Mil/uL (4.40-5.90); WHITE BLOOD COUNT 13.1 K/uL (4.8-10.8)
[2017-03-18 06:18] LABS: ALB/GLOB RATIO 1.1 (1.0-2.1); ALBUMIN 3.7 g/dL (3.5-5.0); ALT/SGPT 31 U/L (21-72); AST/SGOT 29 U/L (17-59); BLOOD UREA NITROGEN 15 mg/dl (9-20); CALCIUM 9.7 mg/dL (8.4-10.2); GFR AFRICAN-AMERICAN > 60; GFR NON-AFRICAN AMERICAN > 60
[2017-03-18 06:58] LABS: SQUAMOUS EPITHIAL < 1 /hpf (0-5); URINE BILIRUBIN NEGATIVE (NEGATIVE); URINE BLOOD NEGATIVE (NEGATIVE); URINE CLARITY CLEAR (Clear); URINE COLOR YELLOW (YELLOW); URINE GLUCOSE (UA) NEG (Normal); URINE LEUKOCYTE ESTERASE NEG Leu/uL (Negative); URINE NITRATE NEGATIVE (NEGATIVE); URINE PROTEIN NEGATIVE (NEGATIVE)
[2017-03-18 07:19] LABS: CREATININE, RANDOM URINE 72.5 mg/dL
[2017-03-18] MEDS: Albuterol-Ipratrop 3 mg / 0.5 (3 ml) UD INH SCH ×3 (08:24→19:06)
[2017-03-18 14:49] LABS: BLOOD UREA NITROGEN 17 mg/dl (9-20); CALCIUM 9.6 mg/dL (8.4-10.2); GFR AFRICAN-AMERICAN > 60; GFR NON-AFRICAN AMERICAN > 60
--- NOTE | 2017-03-18 15:19 | CP.PCM.PN ---
Subjective - Date & Time of Evaluation Date of Evaluation: 03/18/17 Time of Evaluation: 09:00 - Subjective Subjective: F/U Acute CVA Pt found somnolent, arousable. Objective - Vital Signs/Intake and Output Vital Signs (last 24 hours): Temp Pulse Resp BP Pulse Ox 98.2 F 89 18 133/62 95 03/18/17 12:00 03/18/17 12:00 03/18/17 12:00 03/18/17 12:00 03/18/17 12:00 - Medications Medications: Current Medications Acetaminophen (Tylenol 325mg Tab) 650 mg PO Q4 PRN PRN Reason: Headache Last Admin: 03/15/17 16:48 Dose: 650 mg Albuterol/Ipratropium (Duoneb 3 Mg/0.5 Mg (3 Ml) Ud) 3 ml INH RTID [facility] Last Admin: 03/18/17 13:02 Dose: 3 ml Aspirin (Aspirin Supp) 300 mg [place] DAILY [facility] Last Admin: 03/18/17 11:27 Dose: 300 mg Atorvastatin Calcium (Lipitor) 40 mg PO HS [facility] Last Admin: 03/17/17 21:48 Dose: Not Given Buspirone HCl (Buspar) 5 mg PO Q12H [facility] Last Admin: 03/14/17 23:45 Dose: Not Given Dexamethasone (Decadron Inj) 4 mg IVP Q6 [facility] Last Admin: 03/18/17 09:13 Dose: 4 mg Donepezil HCl (Aricept) 5 mg PO DAILY [facility] Last Admin: 03/14/17 09:42 Dose: 5 mg Finasteride (Proscar) 5 mg PO HS [facility] Last Admin: 03/17/17 21:53 Dose: Not Given Fosphenytoin Sodium (Cerebyx) 100 mg IV Q8 [facility] Last Admin: 03/18/17 09:13 Dose: 100 mg Sodium Chloride (Hypertonic Saline 3%) 500 mls @ 5 mls/hr IV .Q24H [facility] Stop: 03/18/17 23:32 Last Admin: 03/18/17 00:00 Dose: 5 mls/hr Lorazepam (Ativan) 2 mg IVP Q6 PRN PRN Reason: Seizure activity Mannitol (Mannitol) 20 gm IV Q6H [facility] Last Admin: 03/18/17 11:27 Dose: 20 gm Mirtazapine (Remeron) 15 mg PO HS [facility] Last Admin: 03/14/17 23:45 Dose: Not Given Montelukast Sodium (Singulair) 10 mg PO [facility] Last Admin: 03/17/17 21:53 Dose: Not Given Pantoprazole Sodium (Protonix Inj) 40 mg IVP DAILY [facility] Last Admin: 03/18/17 09:12 Dose: 40 mg Tamsulosin HCl (Flomax) 0.4 mg PO [facility] Last Admin: 03/17/17 21:48 Dose: Not Given Zolpidem Tartrate (Ambien) 5 mg PO HS PRN PRN Reason: Sleep Last Admin: 03/14/17 00:26 Dose: 5 mg - Labs Labs: 03/18/17 04:50 03/18/17 11:50 PT 11.0 Seconds (9.8-13.1) 03/13/17 14:40 INR 1.0 (0.9-1.2) 03/13/17 14:40 APTT 22.0 Seconds (25.6-37.1) L 03/13/17 14:40 - Constitutional Appears: Chronically Ill - Head Exam Head Exam: NORMAL INSPECTION - Eye Exam Eye Exam: PERRL - ENT Exam ENT Exam: Normal Exam - Neck Exam Neck Exam: Normal Inspection - Respiratory Exam Respiratory Exam: Clear to Ausculation Bilateral - Cardiovascular Exam Cardiovascular Exam: REGULAR RHYTHM - GI/Abdominal Exam GI & Abdominal Exam: Soft, Normal Bowel Sounds - Extremities Exam Extremities Exam: Normal Inspection - Neurological Exam Neurological Exam: Awake Additional comments: O x2, slow mentation, L hemiparesis, able to talk, follows commands, not moving LUE but able to move rest of extremities on commands. - Skin Skin Exam: Warm Assessment and Plan (1) Acute CVA (cerebrovascular accident) Status: Acute (2) Encephalopathy Status: Acute (3) Chest pain Status: Acute (4) Anxiety and depression Status: Chronic (5) Generalized weakness Status: Chronic (6) Dementia Status: Acute (7) HTN (hypertension) Status: Chronic (8) COPD (chronic obstructive pulmonary disease) Status: Chronic (9) History of CVA (cerebrovascular accident) Status: Chronic (10) Headache Status: Acute (11) History of laminectomy Status: Acute (12) Cardiac arrhythmia Status: Acute - Assessment and Plan (Free Text) Plan: Potassium in 3.5, NS 3% was DC, monitor Electrolytes, continue rest of Tx. ICU Time: 38 min.
--- NOTE | 2017-03-19 00:43 | CP.PCM.PN ---
Subjective - Date & Time of Evaluation Date of Evaluation: 03/19/17 Time of Evaluation: 00:37 - Subjective Subjective: He is delirious, with fluctuations of his mental status, his orientation, his interactions and his response to questions. He is moving his left Upper extremity at 2/5, left Lower Extremity at 4/5 with fluctuations, while the right side is moving adequately with a power of 5/ 5. He is receiving IV Decadron and IV mannitol and his serum Osmolality is adequate at 294. He has no gaze preference. He passed part of his swallowing evaluation, being able to swallow finely shopped food with liquids. V.S are within accepted limits. His Dilantin level is around 9.1 He will have a F/U CT Brain in AM. He needs to have his left arm moved upward completely daily 5 to 6 times 1 to 2 minutes each to avoid any stiffness lesion of the left Rotator Cuff. In General he is improving daily and is responding to the IV Mannitol and IV Decadron. Objective - Vital Signs/Intake and Output Vital Signs (last 24 hours): Temp Pulse Resp BP Pulse Ox 98.5 F 74 12 143/83 99 03/19/17 00:00 03/19/17 00:00 03/19/17 00:00 03/19/17 00:00 03/19/17 00:00 Intake and Output: 03/18/17 03/19/17 18:59 06:59 Intake Total 200 20 Balance 200 20 - Medications Medications: Current Medications Acetaminophen (Tylenol 325mg Tab) 650 mg PO Q4 PRN PRN Reason: Headache Last Admin: 03/15/17 16:48 Dose: 650 mg Albuterol/Ipratropium (Duoneb 3 Mg/0.5 Mg (3 Ml) Ud) 3 ml INH RTID [facility] Last Admin: 03/18/17 19:06 Dose: 3 ml Aspirin (Aspirin Supp) 300 mg [place] DAILY [facility] Last Admin: 03/18/17 11:27 Dose: 300 mg Atorvastatin Calcium (Lipitor) 40 mg PO HS [facility] Last Admin: 03/18/17 23:16 Dose: Not Given Buspirone HCl (Buspar) 5 mg PO Q12H [facility] Last Admin: 03/14/17 23:45 Dose: Not Given Dexamethasone (Decadron Inj) 4 mg IVP Q6 [facility] Last Admin: 03/18/17 21:07 Dose: 4 mg Donepezil HCl (Aricept) 5 mg PO DAILY [facility] Last Admin: 03/14/17 09:42 Dose: 5 mg Finasteride (Proscar) 5 mg PO HS [facility] Last Admin: 03/18/17 23:16 Dose: Not Given Fosphenytoin Sodium (Cerebyx) 100 mg IV Q8 [facility] Last Admin: 03/18/17 17:00 Dose: 100 mg Lorazepam (Ativan) 2 mg IVP Q6 PRN PRN Reason: Seizure activity Mannitol (Mannitol) 20 gm IV Q6H [facility] Last Admin: 03/18/17 21:07 Dose: 20 gm Mirtazapine (Remeron) 15 mg PO HS [facility] Last Admin: 03/14/17 23:45 Dose: Not Given Montelukast Sodium (Singulair) 10 mg PO HS [facility] Last Admin: 03/18/17 23:16 Dose: Not Given Pantoprazole Sodium (Protonix Inj) 40 mg IVP DAILY [facility] Last Admin: 03/18/17 09:12 Dose: 40 mg Tamsulosin HCl (Flomax) 0.4 mg PO HS [facility] Last Admin: 03/18/17 23:16 Dose: Not Given Zolpidem Tartrate (Ambien) 5 mg PO HS PRN PRN Reason: Sleep Last Admin: 03/14/17 00:26 Dose: 5 mg - Labs Labs: 03/18/17 04:50 03/18/17 11:50 PT 11.0 Seconds (9.8-13.1) 03/13/17 14:40 INR 1.0 (0.9-1.2) 03/13/17 14:40 APTT 22.0 Seconds (25.6-37.1) L 03/13/17 14:40 Assessment and Plan (1) Lightheadedness Status: Acute (2) Chest pain Status: Acute (3) Dizziness Status: Acute (4) Headache Status: Acute (5) Dementia Status: Acute (6) Inability to walk Status: Acute (7) BPH (benign prostatic hyperplasia) Status: Acute (8) CVA (cerebral vascular accident) Status: Acute
[2017-03-19] MEDS: Fosphenytoin 100 mg/2 ml Inj IV SCH ×3 (00:52→15:37)
[2017-03-19] MEDS: Dexamethasone 4 mg/1 ml IVP SCH ×4 (04:21→21:20)
[2017-03-19] MEDS: Mannitol 12.5 gm/50 ml Inj IV SCH ×4 (04:36→17:24)
[2017-03-19 05:35] LABS: HEMOGLOBIN 15.7 g/dL (12.0-18.0); MEAN CELL VOLUME 93.4 fl (80.0-94.0); MEAN CORPUSCULAR HEMOGLOBIN 29.9 pg (27.0-31.0); RBC 5.26 Mil/uL (4.40-5.90); RED CELL DISTRIBUTION WIDTH 14.4 % (11.5-14.5); WHITE BLOOD COUNT 11.6 K/uL (4.8-10.8)
[2017-03-19 05:43] LABS: BLOOD UREA NITROGEN 20 mg/dl (9-20); GFR AFRICAN-AMERICAN > 60; GFR NON-AFRICAN AMERICAN > 60
[2017-03-19] MEDS: Albuterol-Ipratrop 3 mg / 0.5 (3 ml) UD INH SCH ×3 (08:00→19:17)
--- NOTE | 2017-03-19 09:49 | PQF GENQUE ---
This form is a permanent part of the medical record 03/19/17 Dr. Dahl, Please clarify if the Infarction was present on admission or not, other explanation, unable to determine Admitted with chest pain, lightheaded, and headache. Initial CT 03/13 : No intracranial mass, hemorrhage or evidence of acute infarct. 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 Treated with Mannitol, decadron and aspirin. Clarification of your documentation is requested to better reflect the severity of illness and intensity of treatment of your patient. Indicators present [] Specify: [] [] Specify: [] [] Specify: [] [] Specify: [] Location in the medical record that reflects the above clinical findings: [] Treatment Provided: [] PHYSICIAN'S RESPONSE Based on your medical judgment of the clinical indicators outlined above please clarify the following: [] Practitioner response [] If unable to determine, please check the box, sign and date. Present On Admission (POA) Indicator: [] Present at the time of admission [] Not present at the time of admission [] Clinically Undetermined In responding to this query, please exercise your independent professional judgment. The fact that a question is asked does not imply that any particular answer is desired or expected. Thank you for your clarification on this documentation. If you have any questions please call:ext [phone] * Thank you, Ying Guillory RN CDMP [facility]
--- NOTE | 2017-03-19 13:36 | CP.PCM.PN ---
Subjective - Date & Time of Evaluation Date of Evaluation: 03/19/17 Time of Evaluation: 10:00 - Subjective Subjective: F/u Acute CVA Pt somnolent, arousable , answer questions , follows commands Objective - Vital Signs/Intake and Output Vital Signs (last 24 hours): Temp Pulse Resp BP Pulse Ox 97.7 F 109 H 21 148/73 97 03/19/17 12:00 03/19/17 12:00 03/19/17 12:00 03/19/17 12:00 03/19/17 12:00 Intake and Output: 03/19/17 03/19/17 06:59 18:59 Intake Total 200 Output Total 700 Balance -500 - Medications Medications: Current Medications Acetaminophen (Tylenol 325mg Tab) 650 mg PO Q4 PRN PRN Reason: Headache Last Admin: 03/15/17 16:48 Dose: 650 mg Albuterol/Ipratropium (Duoneb 3 Mg/0.5 Mg (3 Ml) Ud) 3 ml INH RTID [facility] Last Admin: 03/19/17 13:23 Dose: 3 ml Aspirin (Aspirin Supp) 300 mg [place] DAILY [facility] Last Admin: 03/19/17 09:40 Dose: 300 mg Atorvastatin Calcium (Lipitor) 40 mg PO HS [facility] Last Admin: 03/18/17 23:16 Dose: Not Given Buspirone HCl (Buspar) 5 mg PO Q12H [facility] Last Admin: 03/14/17 23:45 Dose: Not Given Dexamethasone (Decadron Inj) 4 mg IVP Q6 [facility] Last Admin: 03/19/17 09:37 Dose: Not Given Donepezil HCl (Aricept) 5 mg PO DAILY [facility] Last Admin: 03/14/17 09:42 Dose: 5 mg Finasteride (Proscar) 5 mg PO HS [facility] Last Admin: 03/18/17 23:16 Dose: Not Given Fosphenytoin Sodium (Cerebyx) 100 mg IV Q8 [facility] Last Admin: 03/19/17 00:52 Dose: 100 mg Lorazepam (Ativan) 2 mg IVP Q6 PRN PRN Reason: Seizure activity Mannitol (Mannitol) 20 gm IV Q6H [facility] Last Admin: 03/19/17 10:30 Dose: Not Given Mirtazapine (Remeron) 15 mg PO HS [facility] Last Admin: 03/14/17 23:45 Dose: Not Given Montelukast Sodium (Singulair) 10 mg PO HS [facility] Last Admin: 03/18/17 23:16 Dose: Not Given Pantoprazole Sodium (Protonix Inj) 40 mg IVP DAILY [facility] Last Admin: 03/19/17 09:37 Dose: 40 mg Tamsulosin HCl (Flomax) 0.4 mg PO HS [facility] Last Admin: 03/18/17 23:16 Dose: Not Given Zolpidem Tartrate (Ambien) 5 mg PO HS PRN PRN Reason: Sleep Last Admin: 03/14/17 00:26 Dose: 5 mg - Labs Labs: 03/19/17 04:35 03/19/17 04:35 PT 11.0 Seconds (9.8-13.1) 03/13/17 14:40 INR 1.0 (0.9-1.2) 03/13/17 14:40 APTT 22.0 Seconds (25.6-37.1) L 03/13/17 14:40 - Constitutional Appears: Chronically Ill - Head Exam Head Exam: NORMAL INSPECTION - Eye Exam Eye Exam: PERRL - ENT Exam ENT Exam: Normal Exam - Neck Exam Neck Exam: Normal Inspection - Respiratory Exam Respiratory Exam: Clear to Ausculation Bilateral - Cardiovascular Exam Cardiovascular Exam: REGULAR RHYTHM - GI/Abdominal Exam GI & Abdominal Exam: Soft, Normal Bowel Sounds - Extremities Exam Extremities Exam: Normal Inspection - Neurological Exam Neurological Exam: Awake Additional comments: Ox 2, slow mentation, L hemiparesis, able to talk, follows commands, not moving LUE but able to move rest of extremities on commands. - Psychiatric Exam Additional comments: Calm - Skin Skin Exam: Warm Assessment and Plan (1) Acute CVA (cerebrovascular accident) Status: Acute (2) Encephalopathy Status: Acute (3) Chest pain Status: Acute (4) Anxiety and depression Status: Chronic (5) Generalized weakness Status: Chronic (6) Dementia Status: Acute (7) HTN (hypertension) Status: Chronic (8) COPD (chronic obstructive pulmonary disease) Status: Chronic (9) History of CVA (cerebrovascular accident) Status: Chronic (10) Headache Status: Acute (11) History of laminectomy Status: Acute (12) Cardiac arrhythmia Status: Acute - Assessment and Plan (Free Text) Plan: Sodium normal, continue Decadron , Manitol and rest of Tx ICU Time: 40 min.
[2017-03-19] MEDS ORDERED: Lidocaine 1% Inj (20ml) ONE (14:29)
--- NOTE | 2017-03-19 14:50 | PCM.SURG1 ---
Surgeon's Initial Post Op Note - Surgeon's Notes Surgeon: Oscar Leggett MD Lab Instructor: None Type of Anesthesia: Local Pre-Operative Diagnosis: poor iv access Operative Findings: patent right basilic vein. catheter length: 37 cm. catheter tip: cavoatrial junction Post-Operative Diagnosis: same Operation Performed: RUE PICC insertion Specimen/Specimens Removed: n/a Estimated Blood Loss: EBL {In ML}: 0 Date of Surgery/Procedure: 03/19/17 Time of Surgery/Procedure: 14:45
--- NOTE | 2017-03-19 15:32 | VASCULAR ---
PROCEDURE: PERIPHERALLY INSERTED CENTRAL VENOUS CATHETER INSERTION CLINICAL HISTORY: 66-year-old male requiring intravenous access is referred to Interventional Radiology for PICC insertion. COMPARISON: None. PROCEDURE: 1. Focused ultrasound of the right upper extremity vasculature. 2. Ultrasound-guided access. 3. Insertion of peripherally inserted central venous catheter. 4. Fluoroscopic localization of catheter tip. PRE-PROCEDURE FINDINGS: 1. Patent right basilic vein. POST-PROCEDURE FINDINGS: 1. Placement of 5 Azeri double-lumen PICC. 2. Catheter length: 37 cm. 3. Catheter tip at cavoatrial junction. INTERVENTIONAL RADIOLOGIST: Oscar Leggett M.D. (the attending was present for the entire procedure) ANESTHESIA: None. MEDICATION: Lidocaine 1% for local subcutaneous analgesia. COMPLICATIONS: None. RADIATION DOSE: Fluoroscopy Time: 10.3 seconds Cumulative Dose: 1.45 mGy PROCEDURE DESCRIPTION AND FINDINGS: The risks, benefits, alternatives and possible complications of the procedure were fully discussed; all questions were answered and informed consent was obtained. The patient was brought into the interventional suite and a pre-procedure 'time-out' was performed. The patient was placed on the fluoroscopy table in the supine position. The right upper extremity was prepped and draped in the usual sterile fashion. Maximum sterile barrier precautions were maintained throughout the entire procedure. Preliminary ultrasound images of the right upper extremity vasculature demonstrate patency of the right basilic vein. Following subcutaneous infiltration of 1% lidocaine for local analgesia, under ultrasound guidance, a 21-gauge needle was advanced into the right basilic vein with real-time visualization of needle entry. The ultrasound images were permanently recorded and submitted to the PACS. A 0.018 guidewire was advanced centrally to the cavoatrial junction. A 5.0 Azeri peel-away sheath was advanced over the guidewire. After obtaining length measurement, a 5 Azeri double-lumen PICC was placed with the tip of the catheter at the cavoatrial junction. The total length of the catheter is 37 cm. The hub of the PICC was secured to the skin using a sterile adhesive bandage. The patient tolerated the procedure well without immediate post-procedure complications and was transferred back to the floor in stable condition. IMPRESSION: SUCCESSFUL INSERTION OF RIGHT UPPER EXTREMITY PICC. PICC OK TO USE.
--- NOTE | 2017-03-19 15:53 | CT ---
PROCEDURE: CT HEAD WITHOUT CONTRAST. HISTORY: CVA COMPARISON: 03/17/2017. TECHNIQUE: Axial computed tomography images were obtained through the head/brain without intravenous contrast. Radiation dose: Total exam DLP = 887.99 mGy-cm. This CT exam was performed using one or more of the following dose reduction techniques: Automated exposure control, adjustment of the mA and/or kV according to patient size, and/or use of iterative reconstruction technique. FINDINGS: HEMORRHAGE: No intracranial hemorrhage. BRAIN: There is redemonstration of large subacute infarction in the right medial temporal and occipital lobes also involving the right thalamus. There is associated edema and effacement of the cortical sulci without evidence of mass effect or midline shift. There are also subacute infarctions in the right caudate head and anterior limb of internal capsule. There is an old lacunar infarction in the right basal ganglia. There are mild chronic microangiopathic changes. There are coarse atherosclerotic calcifications in the cavernous carotid arteries. VENTRICLES: There is mild age-related global parenchymal volume loss and proportionate enlargement of the ventricles and cortical sulci. CALVARIUM: The skull base and calvarium are normal. PARANASAL SINUSES: Predominantly clear. MASTOID AIR CELLS: Predominantly clear. OTHER FINDINGS: None. IMPRESSION: Large right TRADE FACILITATOR territory subacute infarction involving the thalamus, occipital and medial temporal lobes also noted is subacute infarction in the right caudate head and anterior limb of internal capsule. No evidence of hemorrhagic transformation. Additional chronic findings as described above.
[2017-03-19] MEDS: Insulin Regular 100 units/ml SC SCH (21:33)
--- NOTE | 2017-03-20 00:04 | CP.PCM.PN ---
Subjective - Date & Time of Evaluation Date of Evaluation: 03/19/17 Time of Evaluation: 23:00 - Subjective Subjective: He is moving the left side at 4/5 for the lower extremities and 2/5 for the upper extremities. No seizures are reported. Repeat CT Brain show no midline shift, and no bleed. The Blood glucose was high earlier today due to Decadron. He needs to have an Insulin sliding scale. The serum Osmolality value is accepted. VS are showing high blood pressure. BP should be kept below 150 to 155/ 60 to 80 Dilantin level is 8.4 A PICC line is installed. 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 No evidence of hemorrhagic transformation. Additional chronic findings as described above. No intracranial hemorrhage. There is redemonstration of large subacute infarction in the right medial temporal and occipital lobes also involving the right thalamus. There is associated edema and effacement of the cortical sulci without evidence of mass effect or midline shift. There are also subacute infarctions in the right caudate head and anterior limb of internal capsule. There is an old lacunar infarction in the right basal ganglia. There are mild chronic microangiopathic changes. There are coarse atherosclerotic calcifications in the cavernous carotid arteries. Objective - Vital Signs/Intake and Output Vital Signs (last 24 hours): Temp Pulse Resp BP Pulse Ox 97.7 F 98 H 16 129/71 99 03/19/17 16:00 03/19/17 21:22 03/19/17 18:00 03/19/17 21:22 03/19/17 18:00 Intake and Output: 03/19/17 03/20/17 18:59 06:59 Intake Total 900 Output Total 700 Balance 200 - Medications Medications: Current Medications Acetaminophen (Tylenol 325mg Tab) 650 mg PO Q4 PRN PRN Reason: Headache Last Admin: 03/15/17 16:48 Dose: 650 mg Albuterol/Ipratropium (Duoneb 3 Mg/0.5 Mg (3 Ml) Ud) 3 ml INH RTID [facility] Last Admin: 03/19/17 19:17 Dose: 3 ml Aspirin (Aspirin Supp) 300 mg [place] DAILY [facility] Last Admin: 03/19/17 09:40 Dose: 300 mg Atorvastatin Calcium (Lipitor) 40 mg PO HS [facility] Last Admin: 03/19/17 21:21 Dose: Not Given Buspirone HCl (Buspar) 5 mg PO Q12H [facility] Last Admin: 03/14/17 23:45 Dose: Not Given Dexamethasone (Decadron Inj) 4 mg IVP Q6 [facility] Last Admin: 03/19/17 21:20 Dose: 4 mg Donepezil HCl (Aricept) 5 mg PO DAILY [facility] Last Admin: 03/14/17 09:42 Dose: 5 mg Finasteride (Proscar) 5 mg PO HS [facility] Last Admin: 03/19/17 21:22 Dose: Not Given Fosphenytoin Sodium (Cerebyx) 100 mg IV Q8@0000,0800,1600 [facility] Insulin Human Regular (Humulin R) 0 units SC [facility] PRN Reason: Protocol Last Admin: 03/19/17 21:33 Dose: Not Given Mannitol (Mannitol) 20 gm IV 0000,0600,1200,1800 [facility] Metoprolol Tartrate (Lopressor) 50 mg PO Q12 [facility] Last Admin: 03/19/17 21:22 Dose: 50 mg Mirtazapine (Remeron) 15 mg PO HS [facility] Last Admin: 03/14/17 23:45 Dose: Not Given Montelukast Sodium (Singulair) 10 mg PO HS [facility] Last Admin: 03/19/17 21:22 Dose: Not Given Pantoprazole Sodium (Protonix Inj) 40 mg IVP DAILY [facility] Last Admin: 03/19/17 09:37 Dose: 40 mg Tamsulosin HCl (Flomax) 0.4 mg PO HS [facility] Last Admin: 03/19/17 21:21 Dose: Not Given Valsartan (Diovan) 80 mg PO DAILY [facility] Last Admin: 03/19/17 18:35 Dose: 80 mg Zolpidem Tartrate (Ambien) 5 mg PO HS PRN PRN Reason: Sleep Last Admin: 03/14/17 00:26 Dose: 5 mg - Labs Labs: 03/19/17 04:35 03/19/17 04:35 PT 11.0 Seconds (9.8-13.1) 03/13/17 14:40 INR 1.0 (0.9-1.2) 03/13/17 14:40 APTT 22.0 Seconds (25.6-37.1) L 03/13/17 14:40 Assessment and Plan (1) Lightheadedness Status: Acute (2) Chest pain Status: Acute (3) Dizziness Status: Acute (4) Headache Status: Acute (5) Dementia Status: Acute (6) Inability to walk Status: Acute (7) BPH (benign prostatic hyperplasia) Status: Acute (8) CVA (cerebral vascular accident) Status: Acute
--- NOTE | 2017-03-20 00:40 | PN ---
DATE: 03/19/2017 CRITICAL CARE PROGRESS NOTE LOCATION: Patient in ICU, bed 426. TIME SPENT: Thirty-five minutes. SUBJECTIVE: The patient is seen and evaluated at the bedside. Past medical, surgical and social history reviewed. Events since admission noted. An 86-year-old male with multiple chronic medical conditions, admitted through Emergency room on 03/14/2017 with dizziness, headache, and noted to have weakness of his left arm and left leg. CT showed acute posterior cerebral artery infarct. Seen by Neurology consult. Started on Decadron and mannitol. Patient remains alert, awake but with periods of confusion. No distress noted. Status post swallow evaluation, and now currently on nectar-thick liquid diet. Denies headache. No shortness of breath, chest pain or palpitation. PHYSICAL EXAMINATION: VITAL SIGNS: Temperature 97.7, heart rate 78 to 109, blood pressure 148/73, with mean arterial pressure 98; respiratory rate 11 to 21, oxygen saturation 97% on oxygen supplement 2 liters nasal cannula. Intake 1060, output 800, positive balance 260. Weight 193 pounds. HEAD, EYES, EARS, NOSE AND THROAT: Pupils are reactive. Conjunctivae pink. Sclerae white. No gaze preference. No nystagmus. NECK: Short, reduced oropharyngeal air space. CHEST: Bilateral breath sounds. Clear to auscultation. No adventitious sounds. HEART: Rhythm regular. S1 and S2 normal intensity. No S3 or S4 gallop. No audible murmur. ABDOMEN: Bowel sounds present, soft, pendulous. EXTREMITIES: No clubbing, cyanosis, edema. NEUROLOGIC: Power on right arm and right leg 5/5; 2/5 on the left upper extremity; 4/5 on left lower extremity. Patellar reflexes 2 to 3+ on left knee, 2+ on the right. Plantar upgoing on the left. No cerebellar deficit noted. SKIN: Without rash. CURRENT MEDICATIONS: Include BuSpar 5 mg p.o. q. 12 hours, Decadron 4 mg IV q. 6 hours, Aricept 5 mg p.o. daily, Proscar 5 mg p.o. nighttime, Celebrex 100 mg IV q. 8 hours, lorazepam 2 mg IV q. 6 hours p.r.n., mannitol 20 g IV q. 6 hours, Proscar 5 mg p.o. daily, zolpidem 5 mg p.o. nighttime, Flomax 0.4 mg nighttime. IMPRESSION: 1. 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 Neurology onboard. On Decadron and mannitol. Serum osmolality maintained around 300. 2. History of dementia, on BuSpar, Aricept and Remeron. 3. Cardiac: No cardiac arrhythmias noted. Sinus rhythm in telemetry. 4. Pulmonary: Mild cardiomegaly, single lead pacemaker in place. No pleural effusion noted. Closely monitor for developing aspiration pneumonia. 5. GI: Continue feeding as tolerated. 6. Renal: Hyponatremia, improved. Serum osmolality in the 300 range. On mannitol and Decadron. 7. Hyperglycemia secondary to Decadron, we will maintain below 180. Add Accu-Chek with regular insulin coverage. 8. Hematology: Borderline leukocytosis. Normal hemoglobin, hematocrit, platelet count. Iván Benson MD
[2017-03-20] MEDS: Mannitol 12.5 gm/50 ml Inj IV SCH ×2 (00:49→06:29)
[2017-03-20] MEDS: Fosphenytoin 100 mg/2 ml Inj IV SCH ×3 (00:53→17:15)
[2017-03-20] MEDS: Dexamethasone 4 mg/1 ml IVP SCH ×4 (05:00→21:40)
[2017-03-20 05:36] LABS: HEMOGLOBIN 15.2 g/dL (12.0-18.0); MEAN CELL VOLUME 92.5 fl (80.0-94.0); MEAN CORPUSCULAR HEMOGLOBIN 30.1 pg (27.0-31.0); MEAN CORPUSCULAR HGB CONC 32.6 g/dL (33.0-37.0); RBC 5.03 Mil/uL (4.40-5.90); RED CELL DISTRIBUTION WIDTH 13.9 % (11.5-14.5); WHITE BLOOD COUNT 10.9 K/uL (4.8-10.8)
[2017-03-20 05:56] LABS: BLOOD UREA NITROGEN 28 mg/dl (9-20); CALCIUM 9.7 mg/dL (8.4-10.2); GFR AFRICAN-AMERICAN > 60; GFR NON-AFRICAN AMERICAN > 60
[2017-03-20] MEDS: Insulin Regular 100 units/ml SC SCH ×4 (07:30→22:20)
[2017-03-20] MEDS: Albuterol-Ipratrop 3 mg / 0.5 (3 ml) UD INH SCH ×3 (08:00→20:00)
--- NOTE | 2017-03-20 13:45 | CP.PCM.PN ---
Subjective - Date & Time of Evaluation Date of Evaluation: 03/20/17 Time of Evaluation: 09:20 - Subjective Subjective: Awake now , answering questions slowly , oriented x2 , follows commands Objective - Vital Signs/Intake and Output Vital Signs (last 24 hours): Temp Pulse Resp BP Pulse Ox 96.9 F L 69 18 143/69 99 03/20/17 12:00 03/20/17 12:00 03/20/17 12:00 03/20/17 12:00 03/20/17 12:00 Intake and Output: 03/20/17 03/20/17 06:59 18:59 Intake Total 300 Output Total 750 Balance -450 - Medications Medications: Current Medications Acetaminophen (Tylenol 325mg Tab) 650 mg PO Q4 PRN PRN Reason: Headache Last Admin: 03/15/17 16:48 Dose: 650 mg Albuterol/Ipratropium (Duoneb 3 Mg/0.5 Mg (3 Ml) Ud) 3 ml INH RTID [facility] Last Admin: 03/20/17 13:00 Dose: 3 ml Aspirin (Aspirin Supp) 300 mg [place] DAILY [facility] Last Admin: 03/20/17 08:43 Dose: 300 mg Atorvastatin Calcium (Lipitor) 40 mg PO HS [facility] Last Admin: 03/19/17 21:21 Dose: Not Given Buspirone HCl (Buspar) 5 mg PO Q12H [facility] Last Admin: 03/14/17 23:45 Dose: Not Given Dexamethasone (Decadron Inj) 4 mg IVP Q6 [facility] Last Admin: 03/20/17 05:00 Dose: 4 mg Donepezil HCl (Aricept) 5 mg PO DAILY [facility] Last Admin: 03/14/17 09:42 Dose: 5 mg Finasteride (Proscar) 5 mg PO HS [facility] Last Admin: 03/19/17 21:22 Dose: Not Given Fosphenytoin Sodium (Cerebyx) 100 mg IV Q8@0000,0800,1600 [facility] Last Admin: 03/20/17 00:53 Dose: 100 mg Insulin Human Regular (Humulin R) 0 units SC [facility] PRN Reason: Protocol Last Admin: 03/19/17 21:33 Dose: Not Given Mannitol (Mannitol) 20 gm IV 0000,0600,1200,1800 [facility] Last Admin: 03/20/17 06:29 Dose: 20 gm Metoprolol Tartrate (Lopressor) 50 mg PO Q12 [facility] Last Admin: 03/20/17 08:41 Dose: 50 mg Mirtazapine (Remeron) 15 mg PO [facility] Last Admin: 03/14/17 23:45 Dose: Not Given Montelukast Sodium (Singulair) 10 mg PO HS [facility] Last Admin: 03/19/17 21:22 Dose: Not Given Pantoprazole Sodium (Protonix Inj) 40 mg IVP DAILY [facility] Last Admin: 03/20/17 08:42 Dose: 40 mg Tamsulosin HCl (Flomax) 0.4 mg PO [facility] Last Admin: 03/19/17 21:21 Dose: Not Given Valsartan (Diovan) 80 mg PO DAILY [facility] Last Admin: 03/20/17 08:41 Dose: 80 mg Zolpidem Tartrate (Ambien) 5 mg PO HS PRN PRN Reason: Sleep Last Admin: 03/14/17 00:26 Dose: 5 mg - Labs Labs: 03/20/17 04:45 03/20/17 04:45 PT 11.0 Seconds (9.8-13.1) 03/13/17 14:40 INR 1.0 (0.9-1.2) 03/13/17 14:40 APTT 22.0 Seconds (25.6-37.1) L 03/13/17 14:40 - Constitutional Appears: Chronically Ill - Head Exam Head Exam: NORMAL INSPECTION - Eye Exam Eye Exam: PERRL - ENT Exam ENT Exam: Normal Exam - Neck Exam Neck Exam: Normal Inspection - Respiratory Exam Respiratory Exam: Decreased Breath Sounds (at bases) - Cardiovascular Exam Cardiovascular Exam: REGULAR RHYTHM - GI/Abdominal Exam GI & Abdominal Exam: Soft, Normal Bowel Sounds - Extremities Exam Extremities Exam: Normal Inspection - Back Exam Back Exam: NORMAL INSPECTION - Neurological Exam Neurological Exam: Awake (oriented x 2, answer questions slowly , follows commands , moves well upper and lower extremities , L hemiparesia , on command minimal movement LUE, Limited movement LLE) Assessment and Plan (1) Acute CVA (cerebrovascular accident) Status: Acute (2) Encephalopathy Status: Acute (3) Chest pain Status: Resolved (4) Anxiety and depression Status: Chronic (5) Generalized weakness Status: Chronic (6) Dementia Status: Chronic (7) HTN (hypertension) Status: Chronic (8) COPD (chronic obstructive pulmonary disease) Status: Chronic (9) History of CVA (cerebrovascular accident) Status: Chronic (10) Headache Status: Resolved (11) History of laminectomy Status: Acute (12) Cardiac arrhythmia Status: Acute - Assessment and Plan (Free Text) Plan: CTHead 03-19-17 large HEDIS REVIEW NURSE infarciton Thalamus, occipital and temporal lobes, r caudate Head , anterior limb of internal capsule , no hemorrhagic transformation , continue Cerebrix , Decadron , and rest of treatment , Na stable , monitor BP treat if MAP > 110. choking early am with fluids , f/u swallowing eval. ICU Time: 39 min.
--- NOTE | 2017-03-20 15:30 | CP.CCUPN ---
CCU Subjective - Physician Review Subjective (Free Text): Lethargic, but is arousable and appropriately responsive, no new focal deficits , left hemiparesis remains. Denies any headaches, dizziness, palpitations, fever. No seizure activity reported. Other vitals and I/O's reviewed. Essentially negative fluid balance noted over the past 3 days. ROS: No other pertinent negs or positives on 10+ system review. PMSFH: All other Nursing and physician documentation reviewed to date; no new pertinent info noted relevant to current medical problems. CXR: ( my interp): last study on 03/13/17 film and results reviewed: clear. IMPRESSION / MAJOR PROBLEMS NOW: 1. 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 Mild Accelerated HTN 3. h/o Dementia PLAN: 1. Cerebryx/ Mannitol and Decadron as per Neurology. Serial Serum osmolarity measurements, avoid excessive diuresis past serum osmo 325. 2. Will not treat BPs unless MAP exceeds 110. 3. Consider holding [employer]-acting agents including: Buspar / Remeron/ Aricept. 4. Has been on statins PO , and ASA given via [place] route; but has been NPO due to coughing during PO feeding trials. CCU Objective - Vital Signs / Intake & Output Vital Signs (Last 4 hours): Vital Signs Temp Pulse Resp BP Pulse Ox 03/20/17 12:00 96.9 F L 69 18 143/69 99 03/20/17 11:22 83 139/70 98 Intake and Output (Last 8hrs): Intake & Output 03/20/17 03/20/17 03/20/17 06:59 14:59 22:59 Intake Total 300 Output Total 750 Balance -450 Intake: Intake, Piggyback 300 Output: Urine 750 Urethral (Ayala) 750 - Physical Exam Head: Positive for: Atraumatic, Normocephalic Pupils: Positive for: PERRL Mouth: Positive for: Moist Mucous Membranes Respiratory/Chest: Positive for: Clear to Auscultation Cardiovascular: Positive for: Regular Rate and Rhythm, Normal S1, S2 Abdomen: Positive for: Normal Bowel Sounds Lower Extremity: Positive for: NORMAL PULSES. Negative for: CALF TENDERNESS, Cyanosis Neurological: Positive for: Other (Patient very somnolent, only follows some commands.). Negative for: Motor Func Grossly Intact (left hemiparesis), Gait Normal (not testable) Skin: Positive for: Warm, Dry. Negative for: Rashes Psychiatric: Positive for: Lethargic. Negative for: Agitated, Depressed Mood - Medications Active Medications: Active Medications Generic Name Dose Route Start Last Admin Trade Name Freq PRN Reason Stop Dose Admin Acetaminophen 650 mg 03/15/17 16:39 03/15/17 16:48 Tylenol 325mg Tab PO 650 mg Q4 PRN Administration Headache Albuterol/Ipratropium 3 ml 03/15/17 20:00 03/20/17 13:00 Duoneb 3 Mg/0.5 Mg (3 Ml) Ud INH 3 ml RTID SRIKANTH Administration Aspirin 300 mg 03/18/17 09:00 03/20/17 08:43 Aspirin Supp MN 300 mg DAILY SRIKANTH Administration Atorvastatin Calcium 40 mg 03/13/17 23:45 03/19/17 21:21 Lipitor PO Not Given HS SRIKANTH Buspirone HCl 5 mg 03/13/17 23:45 03/14/17 23:45 Buspar PO Not Given Q12H SRIKANTH Dexamethasone 4 mg 03/16/17 22:30 03/20/17 05:00 Decadron Inj IVP 4 mg Q6 SRIKANTH Administration Donepezil HCl 5 mg 03/14/17 09:00 03/14/17 09:42 Aricept PO 5 mg DAILY [facility] Administration Finasteride 5 mg 03/13/17 23:45 03/19/17 21:22 Proscar PO Not Given HS SRIKANTH Fosphenytoin Sodium 100 mg 03/20/17 00:00 03/20/17 00:53 Cerebyx IV 100 mg Q8@0000,0800,1600 S[facility]KANTH Administration Insulin Human Regular 0 units 03/19/17 22:00 03/19/17 21:33 Humulin R SC Not Given ACHS [facility] Protocol Mannitol 20 gm 03/20/17 00:00 03/20/17 06:29 Mannitol IV 20 gm 0000,0600,1200,1800 S[facility]KANTH Administration Metoprolol Tartrate 50 mg 03/19/17 21:00 03/20/17 08:41 Lopressor PO 50 mg Q12 SRIKANTH Administration Mirtazapine 15 mg 03/13/17 23:45 03/14/17 23:45 Remeron PO Not Given HS SRIKANTH Montelukast Sodium 10 mg 03/13/17 23:45 03/19/17 21:22 Singulair PO Not Given HS SRIKANTH Pantoprazole Sodium 40 mg 03/17/17 09:00 03/20/17 08:42 Protonix Inj IVP 40 mg DAILY S[facility]KAN[facility] Administration Tamsulosin HCl 0.4 mg 03/13/17 23:45 03/19/17 21:21 Flomax PO Not Given HS SRIKANTH Valsartan 80 mg 03/19/17 17:00 03/20/17 08:41 Diovan PO 80 mg DAILY SRIKANTH Administration Zolpidem Tartrate 5 mg 03/13/17 23:59 03/14/17 00:26 Ambien PO 5 mg HS PRN Administration Sleep - Patient Studies Lab Studies: Lab Studies 03/20/17 03/20/17 03/20/17 Range/Units 11:18 06:03 04:45 WBC (4.8-10.8) K/uL RBC (4.40-5.90) Mil/uL Hgb (12.0-18.0) g/dL Hct (35.0-51.0) % MCV (80.0-94.0) fl MCH (27.0-31.0) pg MCHC (33.0-37.0) g/dL RDW (11.5-14.5) % Plt Count (130-400) K/uL Sodium (132-148) mmol/l Potassium (3.6-5.0) MMOL/L Chloride (98-107) mmol/L Carbon Dioxide (22-30) mmol/L Anion Gap (10-20) BUN (9-20) mg/dl Creatinine (0.8-1.5) mg/dl Est GFR ( Amer) Est GFR (Non-Af Amer) POC Glucose (mg/dL) 233 H 138 H (65-110) mg/dL Random Glucose (75-110) mg/dL Serum Osmolality 302 H (272-300) mosm/kg Calcium (8.4-10.2) mg/dL 03/20/17 03/20/17 03/19/17 Range/Units 04:45 04:45 21:30 WBC 10.9 H (4.8-10.8) K/uL RBC 5.03 (4.40-5.90) Mil/uL Hgb 15.2 (12.0-18.0) g/dL Hct 46.5 (35.0-51.0) % MCV 92.5 (80.0-94.0) fl MCH 30.1 (27.0-31.0) pg MCHC 32.6 L (33.0-37.0) g/dL RDW 13.9 (11.5-14.5) % Plt Count 191 (130-400) K/uL Sodium 136 (132-148) mmol/l Potassium 4.3 (3.6-5.0) MMOL/L Chloride 98 (98-107) mmol/L Carbon Dioxide 28 (22-30) mmol/L Anion Gap 14 (10-20) BUN 28 H (9-20) mg/dl Creatinine 0.7 L (0.8-1.5) mg/dl Est GFR ( Amer) > 60 Est GFR (Non-Af Amer) > 60 POC Glucose (mg/dL) 242 H (65-110) mg/dL Random Glucose 173 H (75-110) mg/dL Serum Osmolality (272-300) mosm/kg Calcium 9.7 (8.4-10.2) mg/dL 03/19/17 Range/Units 16:47 WBC (4.8-10.8) K/uL RBC (4.40-5.90) Mil/uL Hgb (12.0-18.0) g/dL Hct (35.0-51.0) % MCV (80.0-94.0) fl MCH (27.0-31.0) pg MCHC (33.0-37.0) g/dL RDW (11.5-14.5) % Plt Count (130-400) K/uL Sodium (132-148) mmol/l Potassium (3.6-5.0) MMOL/L Chloride (98-107) mmol/L Carbon Dioxide (22-30) mmol/L Anion Gap (10-20) BUN (9-20) mg/dl Creatinine (0.8-1.5) mg/dl Est GFR ( Amer) Est GFR (Non-Af Amer) POC Glucose (mg/dL) 185 H (65-110) mg/dL Random Glucose (75-110) mg/dL Serum Osmolality (272-300) mosm/kg Calcium (8.4-10.2) mg/dL Laboratory Results - last 24 hr 03/19/17 03/19/17 03/20/17 16:47 21:30 04:45 WBC 10.9 H RBC 5.03 Hgb 15.2 Hct 46.5 MCV 92.5 MCH 30.1 MCHC 32.6 L RDW 13.9 Plt Count 191 Sodium Potassium Chloride Carbon Dioxide Anion Gap BUN Creatinine Est GFR ( Amer) Est GFR (Non-Af Amer) POC Glucose (mg/dL) 185 H 242 H Random Glucose Serum Osmolality Calcium 03/20/17 03/20/17 03/20/17 04:45 04:45 06:03 WBC RBC Hgb Hct MCV MCH MCHC RDW Plt Count Sodium 136 Potassium 4.3 Chloride 98 Carbon Dioxide 28 Anion Gap 14 BUN 28 H Creatinine 0.7 L Est GFR ( Amer) > 60 Est GFR (Non-Af Amer) > 60 POC Glucose (mg/dL) 138 H Random Glucose 173 H Serum Osmolality 302 H Calcium 9.7 03/20/17 11:18 WBC RBC Hgb Hct MCV MCH MCHC RDW Plt Count Sodium Potassium Chloride Carbon Dioxide Anion Gap BUN Creatinine Est GFR ( Amer) Est GFR (Non-Af Amer) POC Glucose (mg/dL) 233 H Random Glucose Serum Osmolality Calcium Fingerstick Blood Sugar Results: 138 Review of Systems - Review of Systems All systems: reviewed and no additional remarkable complaints except (as above) Critical Care Progress Note - Nutrition Nutrition: Nutrition Category Date Time Status Dysphagia/Modified Consistency Diet [DIET] Diets 03/18/17 Dinner Active
[2017-03-20] MEDS: MANNITOL IV SCH (17:16)
--- NOTE | 2017-03-20 21:40 | CP.PCM.PN ---
Subjective - Date & Time of Evaluation Date of Evaluation: 03/20/17 Time of Evaluation: 21:24 - Subjective Subjective: There is no deterioration in his condition, no significant changes in his mental status. He is responsive to conversation and is fluctuating from time to time and is having delirium. Serum Osmolality Value 302 is accepted. He us on IV Decadron, IV Mannitol to prevent swelling and midline shift of his Inactive Stroke in the Right Posterior cerebral area and the Right Basal ganglia and Thalamus. Normal VS. CT Brain without in AM. Objective - Vital Signs/Intake and Output Vital Signs (last 24 hours): Temp Pulse Resp BP Pulse Ox 98.3 F 86 21 120/44 L 98 03/20/17 20:00 03/20/17 20:00 03/20/17 20:00 03/20/17 20:00 03/20/17 20:00 Intake and Output: 03/20/17 03/21/17 18:59 06:59 Intake Total 50 Balance 50 - Medications Medications: Current Medications Acetaminophen (Tylenol 325mg Tab) 650 mg PO Q4 PRN PRN Reason: Headache Last Admin: 03/15/17 16:48 Dose: 650 mg Albuterol/Ipratropium (Duoneb 3 Mg/0.5 Mg (3 Ml) Ud) 3 ml INH RTID [facility] Last Admin: 03/20/17 13:00 Dose: 3 ml Aspirin (Aspirin Supp) 300 mg PA DAILY [facility] Last Admin: 03/20/17 08:43 Dose: 300 mg Atorvastatin Calcium (Lipitor) 40 mg PO HS [facility] Last Admin: 03/19/17 21:21 Dose: Not Given Buspirone HCl (Buspar) 5 mg PO Q12H [facility] Last Admin: 03/14/17 23:45 Dose: Not Given Dexamethasone (Decadron Inj) 4 mg IVP Q6 [facility] Last Admin: 03/20/17 16:30 Dose: 4 mg Donepezil HCl (Aricept) 5 mg PO DAILY [facility] Last Admin: 03/14/17 09:42 Dose: 5 mg Finasteride (Proscar) 5 mg PO HS [facility] Last Admin: 03/19/17 21:22 Dose: Not Given Fosphenytoin Sodium (Cerebyx) 100 mg IV Q8@0000,0800,1600 [facility] Last Admin: 03/20/17 17:15 Dose: 100 mg Insulin Human Regular (Humulin R) 0 units SC ACHS [facility] PRN Reason: Protocol Last Admin: 03/20/17 17:15 Dose: Not Given Mannitol (Mannitol) 100 ml IV 0000,0600,1200,1800 [facility] Last Admin: 03/20/17 17:16 Dose: 100 ml Metoprolol Tartrate (Lopressor) 50 mg PO Q12 [facility] Last Admin: 03/20/17 08:41 Dose: 50 mg Mirtazapine (Remeron) 15 mg PO HS [facility] Last Admin: 03/14/17 23:45 Dose: Not Given Montelukast Sodium (Singulair) 10 mg PO HS [facility] Last Admin: 03/19/17 21:22 Dose: Not Given Pantoprazole Sodium (Protonix Inj) 40 mg IVP DAILY [facility] Last Admin: 03/20/17 08:42 Dose: 40 mg Tamsulosin HCl (Flomax) 0.4 mg PO HS [facility] Last Admin: 03/19/17 21:21 Dose: Not Given Valsartan (Diovan) 80 mg PO DAILY [facility] Last Admin: 03/20/17 08:41 Dose: 80 mg Zolpidem Tartrate (Ambien) 5 mg PO HS PRN PRN Reason: Sleep Last Admin: 03/14/17 00:26 Dose: 5 mg - Labs Labs: 03/20/17 04:45 03/20/17 04:45 PT 11.0 Seconds (9.8-13.1) 03/13/17 14:40 INR 1.0 (0.9-1.2) 03/13/17 14:40 APTT 22.0 Seconds (25.6-37.1) L 03/13/17 14:40 Assessment and Plan (1) Lightheadedness Status: Acute (2) Chest pain Status: Acute (3) Dizziness Status: Acute (4) Headache Status: Acute (5) Dementia Status: Acute (6) Inability to walk Status: Acute (7) BPH (benign prostatic hyperplasia) Status: Acute (8) CVA (cerebral vascular accident) Status: Acute
[2017-03-21] MEDS: MANNITOL IV SCH ×4 (00:19→18:47)
[2017-03-21] MEDS: Fosphenytoin 100 mg/2 ml Inj IV SCH ×3 (00:43→15:02)
[2017-03-21] MEDS: Dexamethasone 4 mg/1 ml IVP SCH ×4 (04:01→21:24)
[2017-03-21 05:31] LABS: HEMOGLOBIN 14.6 g/dL (12.0-18.0); MEAN CELL VOLUME 94.3 fl (80.0-94.0); MEAN CORPUSCULAR HEMOGLOBIN 29.7 pg (27.0-31.0); MEAN CORPUSCULAR HGB CONC 31.5 g/dL (33.0-37.0); RBC 4.9 Mil/uL (4.40-5.90); RED CELL DISTRIBUTION WIDTH 14.1 % (11.5-14.5); WHITE BLOOD COUNT 10.2 K/uL (4.8-10.8)
[2017-03-21 05:39] LABS: BLOOD UREA NITROGEN 32 mg/dl (9-20); CALCIUM 9.5 mg/dL (8.4-10.2); GFR AFRICAN-AMERICAN > 60; GFR NON-AFRICAN AMERICAN > 60
[2017-03-21] MEDS: Insulin Regular 100 units/ml SC SCH ×4 (07:30→22:00)
--- NOTE | 2017-03-21 08:23 | CP.CCUPN ---
CCU Subjective - Physician Review Subjective (Free Text): Arousable to verbal stimuli and name calling, responsive to only simple commands , left hemiparesis remains with essentially LUE flaccidty, but withdraws LLE. Denies any headaches, dizziness, palpitations, fever. No seizure activity reported. Other vitals and I/O's reviewed. Essentially negative fluid balance noted over the past 2 days. Highest systolic BP has been 154 over the last 24H, but not sustained. ROS: No other pertinent negs or positives on 10+ system review. PMSFH: All other Nursing and physician documentation reviewed to date; no new pertinent info noted relevant to current medical problems. IMPRESSION / MAJOR PROBLEMS NOW: 1. 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 Mild Accelerated HTN 3. h/o Dementia PLAN: 1. Repeat CT brain today; Cerebryx/ Mannitol and Decadron as per Neurology. Serial Serum osmolarity measurements have been sub-hyperosmolar state level, avoid excessive diuresis past serum osmo of 325 2. Will not treat BPs unless MAP exceeds 110. 3. Holding [employer]-acting agents including: Buspar / Remeron/ Aricept/ Ambien. 4. Has been on statins PO , and ASA given via [place] route; but has been NPO due to coughing during PO feeding trials. May need NGT for enteral nutitional suport and PO meds. CCU Objective - Vital Signs / Intake & Output Vital Signs (Last 4 hours): Vital Signs Temp Pulse Resp BP Pulse Ox 03/21/17 08:00 97.7 F 67 16 136/73 100 03/21/17 06:00 62 15 140/50 L 99 Intake and Output (Last 8hrs): Intake & Output 03/20/17 03/21/17 03/21/17 22:59 06:59 14:59 Intake Total 50 Balance 50 Intake: Oral 50 - Physical Exam Physical Exam Limitations: Positive for: Altered Mental Status Head: Positive for: Atraumatic, Normocephalic Pupils: Positive for: PERRL Mouth: Positive for: Moist Mucous Membranes Respiratory/Chest: Positive for: Clear to Auscultation Cardiovascular: Positive for: Regular Rate and Rhythm, Normal S1, S2 Abdomen: Positive for: Normal Bowel Sounds Lower Extremity: Positive for: NORMAL PULSES. Negative for: CALF TENDERNESS, Cyanosis Neurological: Positive for: Other (Patient very somnolent, only follows some commands.). Negative for: Motor Func Grossly Intact (left hemiparesis), Gait Normal (not testable) Skin: Positive for: Warm, Dry. Negative for: Rashes Psychiatric: Positive for: Lethargic. Negative for: Agitated, Depressed Mood - Medications Active Medications: Active Medications Generic Name Dose Route Start Last Admin Trade Name Freq PRN Reason Stop Dose Admin Acetaminophen 650 mg 03/15/17 16:39 03/15/17 16:48 Tylenol 325mg Tab PO 650 mg Q4 PRN Administration Headache Albuterol/Ipratropium 3 ml 03/15/17 20:00 03/20/17 20:00 Duoneb 3 Mg/0.5 Mg (3 Ml) Ud INH Not Given RTID SRIKANTH Aspirin 300 mg 03/18/17 09:00 03/20/17 08:43 Aspirin Supp MS 300 mg DAILY SRIKANTH Administration Atorvastatin Calcium 40 mg 03/13/17 23:45 03/20/17 22:22 Lipitor PO Not Given HS SRIKANTH Buspirone HCl 5 mg 03/13/17 23:45 03/14/17 23:45 Buspar PO Not Given Q12H [facility] Dexamethasone 4 mg 03/16/17 22:30 03/21/17 04:01 Decadron Inj IVP 4 mg Q6 SRIKANTH Administration Donepezil HCl 5 mg 03/14/17 09:00 03/14/17 09:42 Aricept PO 5 mg DAILY S[facility] Administration Finasteride 5 mg 03/13/17 23:45 03/20/17 21:41 Proscar PO 5 mg HS SRIKANTH Administration Fosphenytoin Sodium 100 mg 03/20/17 00:00 03/21/17 00:43 Cerebyx IV 100 mg Q8@0000,0800,1600 S[facility]TH Administration Insulin Human Regular 0 units 03/19/17 22:00 03/20/17 22:20 Humulin R SC Not Given ACHS [facility] Protocol Mannitol 100 ml 03/20/17 18:00 03/21/17 05:20 Mannitol IV 100 ml 0000,0600,1200,1800 [facility] Administration Metoprolol Tartrate 50 mg 03/19/17 21:00 03/20/17 21:39 Lopressor PO 50 mg Q12 S[facility]KANTH Administration Mirtazapine 15 mg 03/13/17 23:45 03/14/17 23:45 Remeron PO Not Given HS SRIKANTH Montelukast Sodium 10 mg 03/13/17 23:45 03/20/17 21:41 Singulair PO 10 mg HS S[facility]KANTH Administration Pantoprazole Sodium 40 mg 03/17/17 09:00 03/20/17 08:42 Protonix Inj IVP 40 mg DAILY S[facility]ANTH Administration Tamsulosin HCl 0.4 mg 03/13/17 23:45 03/20/17 22:22 Flomax PO Not Given HS SRIKANTH Valsartan 80 mg 03/19/17 17:00 03/20/17 08:41 Diovan PO 80 mg DAILY S[facility] Administration Zolpidem Tartrate 5 mg 03/13/17 23:59 03/14/17 00:26 Ambien PO 5 mg HS PRN Administration Sleep - Patient Studies Lab Studies: Lab Studies 03/21/17 03/21/17 03/21/17 Range/Units 04:55 04:55 04:55 WBC 10.2 (4.8-10.8) K/uL RBC 4.90 (4.40-5.90) Mil/uL Hgb 14.6 (12.0-18.0) g/dL Hct 46.3 (35.0-51.0) % MCV 94.3 H (80.0-94.0) fl MCH 29.7 (27.0-31.0) pg MCHC 31.5 L (33.0-37.0) g/dL RDW 14.1 (11.5-14.5) % Plt Count 174 (130-400) K/uL Sodium 138 (132-148) mmol/l Potassium 4.4 (3.6-5.0) MMOL/L Chloride 98 (98-107) mmol/L Carbon Dioxide 31 H (22-30) mmol/L Anion Gap 13 (10-20) BUN 32 H (9-20) mg/dl Creatinine 0.7 L (0.8-1.5) mg/dl Est GFR ( Amer) > 60 Est GFR (Non-Af Amer) > 60 POC Glucose (mg/dL) (65-110) mg/dL Random Glucose 178 H (75-110) mg/dL Serum Osmolality 308 H (272-300) mosm/kg Calcium 9.5 (8.4-10.2) mg/dL 01/03/20/17 03/20/17 Range/Units 21:42 16:52 11:18 WBC (4.8-10.8) K/uL RBC (4.40-5.90) Mil/uL Hgb (12.0-18.0) g/dL Hct (35.0-51.0) % MCV (80.0-94.0) fl MCH (27.0-31.0) pg MCHC (33.0-37.0) g/dL RDW (11.5-14.5) % Plt Count (130-400) K/uL Sodium (132-148) mmol/l Potassium (3.6-5.0) MMOL/L Chloride (98-107) mmol/L Carbon Dioxide (22-30) mmol/L Anion Gap (10-20) BUN (9-20) mg/dl Creatinine (0.8-1.5) mg/dl Est GFR ( Amer) Est GFR (Non-Af Amer) POC Glucose (mg/dL) 198 H 147 H 233 H (65-110) mg/dL Random Glucose (75-110) mg/dL Serum Osmolality (272-300) mosm/kg Calcium (8.4-10.2) mg/dL Laboratory Results - last 24 hr 03/20/17 03/20/17 03/20/17 11:18 16:52 21:42 WBC RBC Hgb Hct MCV MCH MCHC RDW Plt Count Sodium Potassium Chloride Carbon Dioxide Anion Gap BUN Creatinine Est GFR ( Amer) Est GFR (Non-Af Amer) POC Glucose (mg/dL) 233 H 147 H 198 H Random Glucose Serum Osmolality Calcium 03/21/17 03/21/17 03/21/17 04:55 04:55 04:55 WBC 10.2 RBC 4.90 Hgb 14.6 Hct 46.3 MCV 94.3 H MCH 29.7 MCHC 31.5 L RDW 14.1 Plt Count 174 Sodium 138 Potassium 4.4 Chloride 98 Carbon Dioxide 31 H Anion Gap 13 BUN 32 H Creatinine 0.7 L Est GFR ( Amer) > 60 Est GFR (Non-Af Amer) > 60 POC Glucose (mg/dL) Random Glucose 178 H Serum Osmolality 308 H Calcium 9.5 Fingerstick Blood Sugar Results: 128 Review of Systems - Review of Systems Systems not reviewed;Unavailable: Altered Mental Status Critical Care Progress Note - Nutrition Nutrition: Nutrition Category Date Time Status Dysphagia/Modified Consistency Diet [DIET] Diets 03/18/17 Dinner Active
[2017-03-21] MEDS: Albuterol-Ipratrop 3 mg / 0.5 (3 ml) UD INH SCH ×4 (08:36→19:46)
--- NOTE | 2017-03-21 12:25 | CT ---
PROCEDURE: CT HEAD WITHOUT CONTRAST. HISTORY: f/u CVA as per Neurologist COMPARISON: CT 03/19/2017 TECHNIQUE: Axial computed tomography images were obtained through the head/brain without intravenous contrast. Radiation dose: Total exam DLP = 2606 mGy-cm. Study had to be repeated due to motion artifact This CT exam was performed using one or more of the following dose reduction techniques: Automated exposure control, adjustment of the mA and/or kV according to patient size, and/or use of iterative reconstruction technique. FINDINGS: HEMORRHAGE: No intracranial hemorrhage. BRAIN: No mass effect or edema. No atrophy or chronic microvascular ischemic changesThere is no change in the appearance of the large right HISTOLOGY AIDE territory infarct. This involves the right occipital and parietal lobes as well as the right thalamus. Infarcts are also seen in the head of the caudate nucleus on the right in the anterior limb of the internal capsule. These are unchanged. VENTRICLES: Unremarkable. No hydrocephalus. CALVARIUM: Unremarkable. PARANASAL SINUSES: Unremarkable as visualized. No significant inflammatory changes. MASTOID AIR CELLS: Unremarkable as visualized. No inflammatory changes. OTHER FINDINGS: None. IMPRESSION: There is no change in the appearance of the large right HISTOLOGY AIDE territory infarct. This involves the right occipital and parietal lobes as well as the right thalamus. Infarcts are also seen in the head of the caudate nucleus on the right in the anterior limb of the internal capsule. These are unchanged. No evidence of hemorrhage.
--- NOTE | 2017-03-21 16:14 | CP.PCM.PN ---
Subjective - Date & Time of Evaluation Date of Evaluation: 03/21/17 Time of Evaluation: 12:15 - Subjective Subjective: F/U Acute CVA Pt lethargic, arousable, answering simple questions, follows commands. Objective - Vital Signs/Intake and Output Vital Signs (last 24 hours): Temp Pulse Resp BP Pulse Ox 97.7 F 74 16 136/73 100 03/21/17 08:00 03/21/17 09:49 03/21/17 08:00 03/21/17 09:49 03/21/17 08:00 Intake and Output: 03/21/17 03/21/17 06:59 18:59 Intake Total 50 Balance 50 - Medications Medications: Current Medications Acetaminophen (Tylenol 325mg Tab) 650 mg PO Q4 PRN PRN Reason: Headache Last Admin: 03/15/17 16:48 Dose: 650 mg Albuterol/Ipratropium (Duoneb 3 Mg/0.5 Mg (3 Ml) Ud) 3 ml INH RTID [facility] Last Admin: 03/21/17 12:23 Dose: 3 ml Aspirin (Aspirin Supp) 300 mg [place] DAILY [facility] Last Admin: 03/21/17 09:48 Dose: Not Given Atorvastatin Calcium (Lipitor) 40 mg PO HS [facility] Last Admin: 03/20/17 22:22 Dose: Not Given Buspirone HCl (Buspar) 5 mg PO Q12H [facility] Last Admin: 03/14/17 23:45 Dose: Not Given Dexamethasone (Decadron Inj) 4 mg IVP Q6 [facility] Last Admin: 03/21/17 15:02 Dose: 4 mg Donepezil HCl (Aricept) 5 mg PO DAILY [facility] Last Admin: 03/14/17 09:42 Dose: 5 mg Finasteride (Proscar) 5 mg PO HS [facility] Last Admin: 03/20/17 21:41 Dose: 5 mg Fosphenytoin Sodium (Cerebyx) 100 mg IV Q8@0000,0800,1600 [facility] Last Admin: 03/21/17 15:02 Dose: 100 mg Insulin Human Regular (Humulin R) 0 units SC ACHS [facility] PRN Reason: Protocol Last Admin: 03/21/17 11:30 Dose: Not Given Mannitol (Mannitol) 100 ml IV 0000,0600,1200,1800 [facility] Last Admin: 03/21/17 13:00 Dose: 100 ml Metoprolol Tartrate (Lopressor) 50 mg PO Q12 [facility] Last Admin: 03/21/17 09:49 Dose: 50 mg Mirtazapine (Remeron) 15 mg PO [facility] Last Admin: 03/14/17 23:45 Dose: Not Given Montelukast Sodium (Singulair) 10 mg PO HS [facility] Last Admin: 03/20/17 21:41 Dose: 10 mg Pantoprazole Sodium (Protonix Inj) 40 mg IVP DAILY [facility] Last Admin: 03/21/17 09:50 Dose: 40 mg Tamsulosin HCl (Flomax) 0.4 mg PO HS [facility] Last Admin: 03/20/17 22:22 Dose: Not Given Valsartan (Diovan) 80 mg PO DAILY [facility] Last Admin: 03/21/17 09:49 Dose: 80 mg Zolpidem Tartrate (Ambien) 5 mg PO HS PRN PRN Reason: Sleep Last Admin: 03/14/17 00:26 Dose: 5 mg - Labs Labs: 03/21/17 04:55 03/21/17 04:55 PT 11.0 Seconds (9.8-13.1) 03/13/17 14:40 INR 1.0 (0.9-1.2) 03/13/17 14:40 APTT 22.0 Seconds (25.6-37.1) L 03/13/17 14:40 - Constitutional Appears: Chronically Ill - Head Exam Head Exam: NORMAL INSPECTION - Eye Exam Eye Exam: PERRL - ENT Exam ENT Exam: Normal Exam - Neck Exam Neck Exam: Normal Inspection - Respiratory Exam Respiratory Exam: Decreased Breath Sounds (at bases) - Cardiovascular Exam Cardiovascular Exam: REGULAR RHYTHM - GI/Abdominal Exam GI & Abdominal Exam: Soft, Normal Bowel Sounds - Extremities Exam Extremities Exam: Normal Inspection - Back Exam Back Exam: NORMAL INSPECTION - Neurological Exam Neurological Exam: Awake Additional comments: Ox2, answer questions slowly, follows commands, able to move RUE and RLE well, on command minimal movement LUE, limited movement LLE. - Skin Skin Exam: Warm Assessment and Plan (1) Acute CVA (cerebrovascular accident) Status: Acute (2) Encephalopathy Status: Acute (3) Chest pain Status: Resolved (4) Anxiety and depression Status: Chronic (5) Generalized weakness Status: Chronic (6) Dementia Status: Chronic (7) HTN (hypertension) Status: Chronic (8) COPD (chronic obstructive pulmonary disease) Status: Chronic (9) History of CVA (cerebrovascular accident) Status: Chronic (10) Headache Status: Resolved (11) History of laminectomy Status: Acute (12) Cardiac arrhythmia Status: Acute - Assessment and Plan (Free Text) Plan: Continue Cerebyx, Manitol, Decadron, Lopressor, Duoneb and rest of Tx. ICU Time: 38 min.
--- NOTE | 2017-03-21 22:10 | CP.PCM.PN ---
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 This involves the right occipital and parietal lobes as well as the right thalamus. Infarcts are also seen in the head of the caudate nucleus on the right in the anterior limb of the internal capsule. These are unchanged. No evidence of hemorrhage. No midline shift is seen. Serum Osmolality is 308, and is within accepted limits. His level of consciousness is maintained at answering simple questions, being oriented with periods of lethargy. He is still on IV Decadron 4 mg Q 6 hrs and IV Mannitol 25% Q 6 hrs. We will D/C IV Mannitol partially by skipping some doses in case his Osmalality is up to 325, and will continue IV Decadron while maintaining his blood Glucose level using the Insulin Sliding Curve until he is stable enough to be transferred to the Telemetry Floor, the Decadron and Mannitol will be both D/C He follows commands, moves his Right side adequately, he is suffering from Left hemiparesis, his Left UE power was 2/5 Left LE Power was 4/5, now it is 1/5 in Left UE and 1 to 2/5 in Left LE All DTR are 0/4, toes are up going on the left side, down going at the Right side. Objective - Vital Signs/Intake and Output Vital Signs (last 24 hours): Temp Pulse Resp BP Pulse Ox 97.0 F L 101 H 16 139/69 98 03/21/17 16:00 03/21/17 21:25 03/21/17 08:00 03/21/17 21:25 03/21/17 16:00 - Medications Medications: Current Medications Acetaminophen (Tylenol 325mg Tab) 650 mg PO Q4 PRN PRN Reason: Headache Last Admin: 03/15/17 16:48 Dose: 650 mg Albuterol/Ipratropium (Duoneb 3 Mg/0.5 Mg (3 Ml) Ud) 3 ml INH RTID [facility] Last Admin: 03/21/17 19:46 Dose: 3 ml Aspirin (Aspirin Supp) 300 mg CO DAILY [facility] Last Admin: 03/21/17 09:48 Dose: Not Given Atorvastatin Calcium (Lipitor) 40 mg PO HS [facility] Last Admin: 03/21/17 21:25 Dose: 40 mg Buspirone HCl (Buspar) 5 mg PO Q12H [facility] Last Admin: 03/14/17 23:45 Dose: Not Given Dexamethasone (Decadron Inj) 4 mg IVP Q6 [facility] Last Admin: 03/21/17 21:24 Dose: 4 mg Donepezil HCl (Aricept) 5 mg PO DAILY [facility] Last Admin: 03/14/17 09:42 Dose: 5 mg Finasteride (Proscar) 5 mg PO HS [facility] Last Admin: 03/21/17 21:25 Dose: 5 mg Fosphenytoin Sodium (Cerebyx) 100 mg IV Q8@0000,0800,1600 [facility] Last Admin: 03/21/17 15:02 Dose: 100 mg Insulin Human Regular (Humulin R) 0 units SC [facility] PRN Reason: Protocol Last Admin: 03/21/17 16:35 Dose: Not Given Mannitol (Mannitol) 100 ml IV 0000,0600,1200,1800 [facility] Last Admin: 03/21/17 18:47 Dose: 100 ml Metoprolol Tartrate (Lopressor) 50 mg PO Q12 [facility] Last Admin: 03/21/17 21:25 Dose: 50 mg Mirtazapine (Remeron) 15 mg PO HS [facility] Last Admin: 03/14/17 23:45 Dose: Not Given Montelukast Sodium (Singulair) 10 mg PO HS [facility] Last Admin: 03/21/17 21:24 Dose: 10 mg Pantoprazole Sodium (Protonix Inj) 40 mg IVP DAILY [facility] Last Admin: 03/21/17 09:50 Dose: 40 mg Tamsulosin HCl (Flomax) 0.4 mg PO HS [facility] Last Admin: 03/21/17 21:25 Dose: 0.4 mg Valsartan (Diovan) 80 mg PO DAILY [facility] Last Admin: 03/21/17 09:49 Dose: 80 mg Zolpidem Tartrate (Ambien) 5 mg PO HS PRN PRN Reason: Sleep Last Admin: 03/14/17 00:26 Dose: 5 mg - Labs Labs: 03/21/17 04:55 03/21/17 04:55 PT 11.0 Seconds (9.8-13.1) 03/13/17 14:40 INR 1.0 (0.9-1.2) 03/13/17 14:40 APTT 22.0 Seconds (25.6-37.1) L 03/13/17 14:40 Assessment and Plan (1) Lightheadedness Status: Acute (2) Chest pain Status: Acute (3) Dizziness Status: Acute (4) Headache Status: Acute (5) Dementia Status: Acute (6) Inability to walk Status: Acute (7) BPH (benign prostatic hyperplasia) Status: Acute (8) CVA (cerebral vascular accident) Status: Acute
[2017-03-22] MEDS: Fosphenytoin 100 mg/2 ml Inj IV SCH ×4 (00:44→23:54)
[2017-03-22] MEDS: MANNITOL IV SCH ×4 (00:54→18:04)
[2017-03-22] MEDS: Dexamethasone 4 mg/1 ml IVP SCH ×5 (05:00→21:03)
[2017-03-22 06:10] LABS: BASO % 0.1 % (0.0-2.0); EOS # 0.1 K/uL (0.0-0.7); HEMOGLOBIN 14.8 g/dL (12.0-18.0); LYMPH # 1.8 K/uL (1.0-4.3); MEAN CELL VOLUME 92.8 fl (80.0-94.0); MEAN CORPUSCULAR HEMOGLOBIN 29.9 pg (27.0-31.0); MEAN CORPUSCULAR HGB CONC 32.2 g/dL (33.0-37.0); MEAN PLATELET VOLUME 7.6 fl (7.2-11.7); MONO # 0.7 K/uL (0.0-0.8); MONO % 6.9 % (0.0-10.0); NRBC % 0.1 % (0.0-0.0); RBC 4.94 Mil/uL (4.40-5.90); RED CELL DISTRIBUTION WIDTH 13.9 % (11.5-14.5); WHITE BLOOD COUNT 10.6 K/uL (4.8-10.8)
[2017-03-22 06:16] LABS: MAGNESIUM 2.1 MG/DL (1.6-2.3)
[2017-03-22] MEDS: Albuterol-Ipratrop 3 mg / 0.5 (3 ml) UD INH SCH ×3 (08:48→19:30)
[2017-03-22] MEDS: Insulin Regular 100 units/ml SC SCH ×4 (09:02→22:59)
--- NOTE | 2017-03-22 16:22 | CP.CCUPN ---
CCU Subjective - Physician Review Subjective (Free Text): Remains lethargic, but arousable to verbal stimuli, no overall obvious distress. No seizure activity reported. Other vitals and I/O's reviewed. Essentially mild negative fluid balance noted over the past 4 days. BP levels teending lower and bradycardic at times. ROS: No other pertinent negs or positives on 10+ system review obtainable 2' lethargy. PMSFH: All other Nursing and physician documentation reviewed to date; no new pertinent info noted relevant to current medical problems. IMPRESSION / MAJOR PROBLEMS NOW: 1. 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 Mild Accelerated HTN- resolved. 3. h/o Dementia PLAN: 1. Cerebryx/ Mannitol and Decadron as per Neurology. Serial Serum osmolarity measurements have been sub-hyperosmolar state level, avoid excessive diuresis past serum osmo of 325 2. 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 3. Has been on statins PO , and ASA given via ND route; but has been NPO due to coughing during PO feeding trials. May need NGT for enteral nutitional suport and PO meds. 4. Stable for stepdown Tele bed. CCU Objective - Vital Signs / Intake & Output Intake and Output (Last 8hrs): Intake & Output 03/22/17 03/22/17 03/22/17 06:59 14:59 22:59 Intake Total 310 Output Total 600 Balance -290 Weight 187 lb Intake: Intake, Piggyback 250 Oral 60 Output: Urine 600 Urethral (Ayala) 600 - Physical Exam Head: Positive for: Atraumatic, Normocephalic Pupils: Positive for: PERRL Mouth: Positive for: Moist Mucous Membranes Respiratory/Chest: Positive for: Clear to Auscultation Cardiovascular: Positive for: Regular Rate and Rhythm, Normal S1, S2 Abdomen: Positive for: Normal Bowel Sounds Lower Extremity: Positive for: NORMAL PULSES. Negative for: CALF TENDERNESS, Cyanosis Neurological: Positive for: Other (Patient very somnolent, only follows some commands.). Negative for: Motor Func Grossly Intact (left hemiparesis), Gait Normal (not testable) Skin: Positive for: Warm, Dry. Negative for: Rashes Psychiatric: Positive for: Lethargic. Negative for: Agitated, Depressed Mood - Medications Active Medications: Active Medications Generic Name Dose Route Start Last Admin Trade Name Freq PRN Reason Stop Dose Admin Acetaminophen 650 mg 03/15/17 16:39 03/15/17 16:48 Tylenol 325mg Tab PO 650 mg Q4 PRN Administration Headache Albuterol/Ipratropium 3 ml 03/15/17 20:00 03/22/17 14:05 Duoneb 3 Mg/0.5 Mg (3 Ml) Ud INH 3 ml RTID [facility] Administration Aspirin 300 mg 03/18/17 09:00 03/22/17 08:55 Aspirin Supp ND 300 mg DAILY [facility] Administration Atorvastatin Calcium 40 mg 03/13/17 23:45 03/21/17 21:25 Lipitor PO 40 mg HS [facility] Administration Buspirone HCl 5 mg 03/13/17 23:45 03/14/17 23:45 Buspar PO Not Given Q12H [facility] Carbidopa/Levodopa 1 tab 03/22/17 13:00 03/22/17 13:53 Sinemet PO 1 tab TID [facility] Administration Dexamethasone 4 mg 03/16/17 22:30 03/22/17 09:01 Decadron Inj IVP 4 mg Q6 [facility] Administration Donepezil HCl 5 mg 03/14/17 09:00 03/14/17 09:42 Aricept PO 5 mg DAILY [facility] Administration Finasteride 5 mg 03/13/17 23:45 03/21/17 21:25 Proscar PO 5 mg HS [facility] Administration Fosphenytoin Sodium 100 mg 03/20/17 00:00 03/22/17 08:55 Cerebyx IV 100 mg Q8@0000,0800,1600 [facility] Administration Insulin Human Regular 0 units 03/19/17 22:00 03/22/17 14:08 Humulin R SC 3 unit ACHS [facility] Administration Protocol Mannitol 100 ml 03/20/17 18:00 03/22/17 13:53 Mannitol IV 100 ml 0000,0600,1200,1800 [facility] Administration Metoprolol Tartrate 50 mg 03/19/17 21:00 03/22/17 08:55 Lopressor PO 50 mg Q12 [facility] Administration Mirtazapine 15 mg 03/13/17 23:45 03/14/17 23:45 Remeron PO Not Given HS [facility] Montelukast Sodium 10 mg 03/13/17 23:45 03/21/17 21:24 Singulair PO 10 mg HS [facility] Administration Pantoprazole Sodium 40 mg 03/17/17 09:00 03/22/17 08:54 Protonix Inj IVP 40 mg DAILY [facility] Administration Tamsulosin HCl 0.4 mg 03/13/17 23:45 03/21/17 21:25 Flomax PO 0.4 mg HS [facility] Administration Valsartan 80 mg 03/19/17 17:00 03/22/17 08:54 Diovan PO 80 mg DAILY [facility] Administration Zolpidem Tartrate 5 mg 03/13/17 23:59 03/14/17 00:26 Ambien PO 5 mg HS PRN Administration Sleep - Patient Studies Lab Studies: Lab Studies 03/22/17 03/22/17 03/22/17 Range/Units 04:50 04:50 04:50 WBC 10.6 (4.8-10.8) K/uL RBC 4.94 (4.40-5.90) Mil/uL Hgb 14.8 (12.0-18.0) g/dL Hct 45.8 (35.0-51.0) % MCV 92.8 (80.0-94.0) fl MCH 29.9 (27.0-31.0) pg MCHC 32.2 L (33.0-37.0) g/dL RDW 13.9 (11.5-14.5) % Plt Count 176 (130-400) K/uL MPV 7.6 (7.2-11.7) fl Neut % (Auto) 75.0 (50.0-75.0) % Lymph % (Auto) 17.0 L (20.0-40.0) % Morgan % (Auto) 6.9 (0.0-10.0) % Eos % (Auto) 1.0 (0.0-4.0) % Baso % (Auto) 0.1 (0.0-2.0) % Neut # (Auto) 8.0 H (1.8-7.0) K/uL Lymph # (Auto) 1.8 (1.0-4.3) K/uL Morgan # (Auto) 0.7 (0.0-0.8) K/uL Eos # (Auto) 0.1 (0.0-0.7) K/uL Baso # (Auto) 0.0 (0.0-0.2) K/uL POC Glucose (mg/dL) (65-110) mg/dL Serum Osmolality 303 H (272-300) mosm/kg Phosphorus 3.6 (2.5-4.5) mg/dl Magnesium 2.1 (1.6-2.3) MG/DL 03/21/17 03/21/17 03/21/17 Range/Units 21:47 16:38 12:42 WBC (4.8-10.8) K/uL RBC (4.40-5.90) Mil/uL Hgb (12.0-18.0) g/dL Hct (35.0-51.0) % MCV (80.0-94.0) fl MCH (27.0-31.0) pg MCHC (33.0-37.0) g/dL RDW (11.5-14.5) % Plt Count (130-400) K/uL MPV (7.2-11.7) fl Neut % (Auto) (50.0-75.0) % Lymph % (Auto) (20.0-40.0) % Morgan % (Auto) (0.0-10.0) % Eos % (Auto) (0.0-4.0) % Baso % (Auto) (0.0-2.0) % Neut # (Auto) (1.8-7.0) K/uL Lymph # (Auto) (1.0-4.3) K/uL Morgan # (Auto) (0.0-0.8) K/uL Eos # (Auto) (0.0-0.7) K/uL Baso # (Auto) (0.0-0.2) K/uL POC Glucose (mg/dL) 212 H 105 146 H (65-110) mg/dL Serum Osmolality (272-300) mosm/kg Phosphorus (2.5-4.5) mg/dl Magnesium (1.6-2.3) MG/DL Laboratory Results - last 24 hr 03/21/17 03/21/17 03/21/17 12:42 16:38 21:47 WBC RBC Hgb Hct MCV MCH MCHC RDW Plt Count MPV Neut % (Auto) Lymph % (Auto) Morgan % (Auto) Eos % (Auto) Baso % (Auto) Neut # (Auto) Lymph # (Auto) Morgan # (Auto) Eos # (Auto) Baso # (Auto) POC Glucose (mg/dL) 146 H 105 212 H Serum Osmolality Phosphorus Magnesium 03/22/17 03/22/17 03/22/17 04:50 04:50 04:50 WBC 10.6 RBC 4.94 Hgb 14.8 Hct 45.8 MCV 92.8 MCH 29.9 MCHC 32.2 L RDW 13.9 Plt Count 176 MPV 7.6 Neut % (Auto) 75.0 Lymph % (Auto) 17.0 L Morgan % (Auto) 6.9 Eos % (Auto) 1.0 Baso % (Auto) 0.1 Neut # (Auto) 8.0 H Lymph # (Auto) 1.8 Morgan # (Auto) 0.7 Eos # (Auto) 0.1 Baso # (Auto) 0.0 POC Glucose (mg/dL) Serum Osmolality 303 H Phosphorus 3.6 Magnesium 2.1 Fingerstick Blood Sugar Results: 223 Review of Systems - Review of Systems Systems not reviewed;Unavailable: Altered Mental Status Critical Care Progress Note - Nutrition Nutrition: Nutrition Category Date Time Status Dysphagia/Modified Consistency Diet [DIET] Diets 03/21/17 Dinner Active
--- NOTE | 2017-03-22 18:33 | CP.PCM.PN ---
Subjective - Date & Time of Evaluation Date of Evaluation: 03/22/17 Time of Evaluation: 15:00 - Subjective Subjective: awake , answer questions slowly , oriented to family at bedside, follows commands Objective - Vital Signs/Intake and Output Vital Signs (last 24 hours): Temp Pulse Resp BP Pulse Ox 97.3 F L 71 15 140/80 100 03/22/17 16:00 03/22/17 18:00 03/22/17 18:00 03/22/17 18:00 03/22/17 18:00 Intake and Output: 03/22/17 03/22/17 06:59 18:59 Intake Total 310 780 Output Total 600 600 Balance -290 180 - Medications Medications: Current Medications Acetaminophen (Tylenol 325mg Tab) 650 mg PO Q4 PRN PRN Reason: Headache Last Admin: 03/15/17 16:48 Dose: 650 mg Albuterol/Ipratropium (Duoneb 3 Mg/0.5 Mg (3 Ml) Ud) 3 ml INH RTID [facility] Last Admin: 03/22/17 14:05 Dose: 3 ml Aspirin (Aspirin Supp) 300 mg [place] DAILY [facility] Last Admin: 03/22/17 08:55 Dose: 300 mg Atorvastatin Calcium (Lipitor) 40 mg PO HS [facility] Last Admin: 03/21/17 21:25 Dose: 40 mg Buspirone HCl (Buspar) 5 mg PO Q12H [facility] Last Admin: 03/14/17 23:45 Dose: Not Given Carbidopa/Levodopa (Sinemet) 1 tab PO TID [facility] Last Admin: 03/22/17 16:47 Dose: 1 tab Dexamethasone (Decadron Inj) 4 mg IVP Q6 [facility] Last Admin: 03/22/17 16:46 Dose: 4 mg Donepezil HCl (Aricept) 5 mg PO DAILY [facility] Last Admin: 03/14/17 09:42 Dose: 5 mg Finasteride (Proscar) 5 mg PO HS [facility] Last Admin: 03/21/17 21:25 Dose: 5 mg Fosphenytoin Sodium (Cerebyx) 100 mg IV Q8@0000,0800,1600 [facility] Last Admin: 03/22/17 16:43 Dose: 100 mg Insulin Human Regular (Humulin R) 0 units SC ACHS [facility] PRN Reason: Protocol Last Admin: 03/22/17 16:49 Dose: 2 unit Mannitol (Mannitol) 100 ml IV 0000,0600,1200,1800 [facility] Last Admin: 03/22/17 18:04 Dose: 100 ml Metoprolol Tartrate (Lopressor) 50 mg PO Q12 [facility] Last Admin: 03/22/17 08:55 Dose: 50 mg Mirtazapine (Remeron) 15 mg PO HS [facility] Last Admin: 03/14/17 23:45 Dose: Not Given Montelukast Sodium (Singulair) 10 mg PO [facility] Last Admin: 03/21/17 21:24 Dose: 10 mg Pantoprazole Sodium (Protonix Inj) 40 mg IVP DAILY [facility] Last Admin: 03/22/17 08:54 Dose: 40 mg Tamsulosin HCl (Flomax) 0.4 mg PO [facility] Last Admin: 03/21/17 21:25 Dose: 0.4 mg Valsartan (Diovan) 80 mg PO DAILY [facility] Last Admin: 03/22/17 08:54 Dose: 80 mg Zolpidem Tartrate (Ambien) 5 mg PO HS PRN PRN Reason: Sleep Last Admin: 03/14/17 00:26 Dose: 5 mg - Labs Labs: 03/22/17 04:50 03/21/17 04:55 PT 11.0 Seconds (9.8-13.1) 03/13/17 14:40 INR 1.0 (0.9-1.2) 03/13/17 14:40 APTT 22.0 Seconds (25.6-37.1) L 03/13/17 14:40 - Constitutional Appears: Chronically Ill - Head Exam Head Exam: NORMAL INSPECTION - Eye Exam Eye Exam: PERRL - ENT Exam ENT Exam: Normal Exam - Neck Exam Neck Exam: Normal Inspection - Respiratory Exam Respiratory Exam: Decreased Breath Sounds (at bases) - Cardiovascular Exam Cardiovascular Exam: REGULAR RHYTHM - GI/Abdominal Exam GI & Abdominal Exam: Soft, Normal Bowel Sounds - Extremities Exam Extremities Exam: Normal Inspection - Back Exam Back Exam: NORMAL INSPECTION - Neurological Exam Neurological Exam: Awake Additional comments: able to talk slowly , follows commands , minimal movements LUE , LLE , on command weak hand stone and concrete washer l hand ,minimal movement LLE . strong R hand stone and concrete washer , moves well RUE and RLE against gravity Assessment and Plan (1) Acute CVA (cerebrovascular accident) Status: Acute (2) Encephalopathy Status: Acute (3) Chest pain Status: Resolved (4) Anxiety and depression Status: Chronic (5) Generalized weakness Status: Chronic (6) Dementia Status: Chronic (7) HTN (hypertension) Status: Chronic (8) COPD (chronic obstructive pulmonary disease) Status: Chronic (9) History of CVA (cerebrovascular accident) Status: Chronic (10) Headache Status: Resolved (11) History of laminectomy Status: Acute (12) Cardiac arrhythmia Status: Acute - Assessment and Plan (Free Text) Plan: Patient on Cerebyx , Decadron, continue rest of treatment and PT , f/u Neurology ICU Time: 37 min.
--- NOTE | 2017-03-22 22:59 | CP.PCM.PN ---
Subjective - Date & Time of Evaluation Date of Evaluation: 03/22/17 Time of Evaluation: 22:53 - Subjective Subjective: Patient is doing much better after adding the Carbidopa-Levodopa 25/ 100 and his focusing level is better and he is breathing easily with no significant rigidity. He is more awake and oriented as before and has a weak speech. He is moving his left leg at 4/5, the left Upper extremity at 1 to 2/5 . His serum Osmolality is 303, which is better than before, will continue his IV Mannitol until he improves and is back to his baseline. Will continue also his Decadron until his condition improves. He is transferred to Telemetry floor for improvement. Objective - Vital Signs/Intake and Output Vital Signs (last 24 hours): Temp Pulse Resp BP Pulse Ox 97.3 F L 75 15 140/79 100 03/22/17 16:00 03/22/17 21:09 03/22/17 18:00 03/22/17 21:09 03/22/17 18:00 Intake and Output: 03/22/17 03/23/17 18:59 06:59 Intake Total 780 Output Total 600 Balance 180 - Medications Medications: Current Medications Acetaminophen (Tylenol 325mg Tab) 650 mg PO Q4 PRN PRN Reason: Headache Last Admin: 03/15/17 16:48 Dose: 650 mg Albuterol/Ipratropium (Duoneb 3 Mg/0.5 Mg (3 Ml) Ud) 3 ml INH RTID [facility] Last Admin: 03/22/17 19:30 Dose: 3 ml Aspirin (Aspirin Supp) [address] DAILY [facility] Last Admin: 03/22/17 08:55 Dose: 300 mg Atorvastatin Calcium (Lipitor) 40 mg PO HS [facility] Last Admin: 03/22/17 21:03 Dose: 40 mg Buspirone HCl (Buspar) 5 mg PO Q12H [facility] Last Admin: 03/14/17 23:45 Dose: Not Given Carbidopa/Levodopa (Sinemet) 1 tab PO TID [facility] Last Admin: 03/22/17 16:47 Dose: 1 tab Dexamethasone (Decadron Inj) 4 mg IVP Q6 [facility] Last Admin: 03/22/17 21:03 Dose: 4 mg Donepezil HCl (Aricept) 5 mg PO DAILY [facility] Last Admin: 03/14/17 09:42 Dose: 5 mg Finasteride (Proscar) 5 mg PO HS [facility] Last Admin: 03/22/17 21:04 Dose: 5 mg Fosphenytoin Sodium (Cerebyx) 100 mg IV Q8@0000,0800,1600 [facility] Last Admin: 03/22/17 16:43 Dose: 100 mg Insulin Human Regular (Humulin R) 0 units SC ACHS [facility] PRN Reason: Protocol Last Admin: 03/22/17 16:49 Dose: 2 unit Mannitol (Mannitol) 100 ml IV 0000,0600,1200,1800 [facility] Last Admin: 03/22/17 18:04 Dose: 100 ml Metoprolol Tartrate (Lopressor) 50 mg PO Q12 [facility] Last Admin: 03/22/17 21:09 Dose: 50 mg Mirtazapine (Remeron) 15 mg PO HS [facility] Last Admin: 03/14/17 23:45 Dose: Not Given Montelukast Sodium (Singulair) 10 mg PO HS [facility] Last Admin: 03/22/17 21:04 Dose: 10 mg Pantoprazole Sodium (Protonix Inj) 40 mg IVP DAILY [facility] Last Admin: 03/22/17 08:54 Dose: 40 mg Tamsulosin HCl (Flomax) 0.4 mg PO HS [facility] Last Admin: 03/22/17 21:03 Dose: 0.4 mg Valsartan (Diovan) 80 mg PO DAILY [facility] Last Admin: 03/22/17 08:54 Dose: 80 mg Zolpidem Tartrate (Ambien) 5 mg PO HS PRN PRN Reason: Sleep Last Admin: 03/14/17 00:26 Dose: 5 mg - Labs Labs: 03/22/17 04:50 03/21/17 04:55 PT 11.0 Seconds (9.8-13.1) 03/13/17 14:40 INR 1.0 (0.9-1.2) 03/13/17 14:40 APTT 22.0 Seconds (25.6-37.1) L 03/13/17 14:40 Assessment and Plan (1) Lightheadedness Status: Acute (2) Chest pain Status: Acute (3) Dizziness Status: Acute (4) Headache Status: Acute (5) Dementia Status: Acute (6) Inability to walk Status: Acute (7) BPH (benign prostatic hyperplasia) Status: Acute (8) CVA (cerebral vascular accident) Status: Acute
[2017-03-23] MEDS: MANNITOL IV SCH ×3 (00:42→13:00)
[2017-03-23] MEDS: Dexamethasone 4 mg/1 ml IVP SCH ×4 (04:59→22:40)
[2017-03-23 05:01] LABS: HEMOGLOBIN 13.8 g/dL (12.0-18.0); MEAN CELL VOLUME 93.2 fl (80.0-94.0); MEAN CORPUSCULAR HEMOGLOBIN 29.6 pg (27.0-31.0); MEAN CORPUSCULAR HGB CONC 31.8 g/dL (33.0-37.0); RBC 4.65 Mil/uL (4.40-5.90); WHITE BLOOD COUNT 11.6 K/uL (4.8-10.8)
[2017-03-23 05:20] LABS: BLOOD UREA NITROGEN 31 mg/dl (9-20); CALCIUM 9.6 mg/dL (8.4-10.2); GFR AFRICAN-AMERICAN > 60; GFR NON-AFRICAN AMERICAN > 60
[2017-03-23] MEDS: Insulin Regular 100 units/ml SC SCH ×4 (06:46→22:00)
[2017-03-23] MEDS: Albuterol-Ipratrop 3 mg / 0.5 (3 ml) UD INH SCH ×3 (08:19→19:21)
[2017-03-23] MEDS: Fosphenytoin 100 mg/2 ml Inj IV SCH ×2 (09:33→17:11)
[2017-03-23] MEDS ORDERED: Mannitol 12.5 gm/50 ml Inj IV SCH (12:00)
--- NOTE | 2017-03-23 17:19 | CP.PCM.PN ---
Subjective - Date & Time of Evaluation Date of Evaluation: 03/23/17 Time of Evaluation: 14:00 - Subjective Subjective: F/U Acute CVA. Awake, follows commands slowly, Ox2 Objective - Vital Signs/Intake and Output Vital Signs (last 24 hours): Temp Pulse Resp BP Pulse Ox 97.8 F 76 14 114/57 L 100 03/23/17 16:00 03/23/17 16:00 03/23/17 16:00 03/23/17 14:00 03/23/17 16:00 Intake and Output: 03/23/17 03/23/17 06:59 18:59 Intake Total 310 142 Output Total 800 Balance -490 142 - Medications Medications: Current Medications Acetaminophen (Tylenol 325mg Tab) 650 mg PO Q4 PRN PRN Reason: Headache Last Admin: 03/15/17 16:48 Dose: 650 mg Albuterol/Ipratropium (Duoneb 3 Mg/0.5 Mg (3 Ml) Ud) 3 ml INH RTID [facility] Last Admin: 03/23/17 13:09 Dose: 3 ml Aspirin (Aspirin Supp) 300 mg CO DAILY [facility] Last Admin: 03/23/17 09:38 Dose: 300 mg Atorvastatin Calcium (Lipitor) 40 mg PO HS [facility] Last Admin: 03/22/17 21:03 Dose: 40 mg Buspirone HCl (Buspar) 5 mg PO Q12H [facility] Last Admin: 03/14/17 23:45 Dose: Not Given Carbidopa/Levodopa (Sinemet) 1 tab PO TID [facility] Last Admin: 03/23/17 12:29 Dose: 1 tab Dexamethasone (Decadron Inj) 4 mg IVP Q6 [facility] Last Admin: 03/23/17 17:16 Dose: 4 mg Donepezil HCl (Aricept) 5 mg PO DAILY [facility] Last Admin: 03/14/17 09:42 Dose: 5 mg Finasteride (Proscar) 5 mg PO HS [facility] Last Admin: 03/22/17 21:04 Dose: 5 mg Fosphenytoin Sodium (Cerebyx) 100 mg IV Q8@0000,0800,1600 [facility] Last Admin: 03/23/17 17:11 Dose: 100 mg Insulin Human Regular (Humulin R) 0 units SC ACHS [facility] PRN Reason: Protocol Last Admin: 03/23/17 17:18 Dose: 3 unit Mannitol (Mannitol) 20 gm IV 0000,0600,1200,1800 [facility] Last Admin: 03/23/17 14:23 Dose: 20 gm Metoprolol Tartrate (Lopressor) 50 mg PO Q12 [facility] Last Admin: 03/23/17 09:47 Dose: 50 mg Mirtazapine (Remeron) 15 mg PO HS [facility] Last Admin: 03/14/17 23:45 Dose: Not Given Montelukast Sodium (Singulair) 10 mg PO HS [facility] Last Admin: 03/22/17 21:04 Dose: 10 mg Pantoprazole Sodium (Protonix Inj) 40 mg IVP DAILY [facility] Last Admin: 03/23/17 09:52 Dose: 40 mg Tamsulosin HCl (Flomax) 0.4 mg PO [facility] Last Admin: 03/22/17 21:03 Dose: 0.4 mg Valsartan (Diovan) 80 mg PO DAILY [facility] Last Admin: 03/23/17 09:31 Dose: 80 mg Zolpidem Tartrate (Ambien) 5 mg PO HS PRN PRN Reason: Sleep Last Admin: 03/14/17 00:26 Dose: 5 mg - Labs Labs: 03/23/17 04:50 03/23/17 04:50 PT 11.0 Seconds (9.8-13.1) 03/13/17 14:40 INR 1.0 (0.9-1.2) 03/13/17 14:40 APTT 22.0 Seconds (25.6-37.1) L 03/13/17 14:40 - Constitutional Appears: Chronically Ill - Head Exam Head Exam: NORMAL INSPECTION - Eye Exam Eye Exam: PERRL - ENT Exam ENT Exam: Normal Exam - Neck Exam Neck Exam: Normal Inspection - Respiratory Exam Respiratory Exam: Decreased Breath Sounds (at bases) - Cardiovascular Exam Cardiovascular Exam: REGULAR RHYTHM - GI/Abdominal Exam GI & Abdominal Exam: Soft, Normal Bowel Sounds - Extremities Exam Extremities Exam: Normal Inspection - Back Exam Back Exam: NORMAL INSPECTION - Neurological Exam Neurological Exam: Awake Additional comments: A O x 2 ,Able to talk slowly, follows commands, increase movement LLE , raise LLE against gravity , minimal movement LUE , 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, moves well RUE , RLE , strong R Hand research contracts supervisor - Skin Skin Exam: Warm Assessment and Plan (1) Acute CVA (cerebrovascular accident) Status: Acute (2) Encephalopathy Status: Acute (3) Chest pain Status: Resolved (4) Anxiety and depression Status: Chronic (5) Generalized weakness Status: Chronic (6) Dementia Status: Chronic (7) HTN (hypertension) Status: Chronic (8) COPD (chronic obstructive pulmonary disease) Status: Chronic (9) History of CVA (cerebrovascular accident) Status: Chronic (10) Headache Status: Resolved (11) History of laminectomy Status: Acute (12) Cardiac arrhythmia Status: Acute - Assessment and Plan (Free Text) Plan: increase movement LLE , follows commands , on puree diet , thick fluids , continue Cerebyx , Decadron , Manitol , PT and rest of treatment ICU Time: 40 min.
[2017-03-23] MEDS: Mannitol 12.5 gm/50 ml Inj IV SCH (19:41)
--- NOTE | 2017-03-23 23:05 | CP.PCM.PN ---
Subjective - Date & Time of Evaluation Date of Evaluation: 03/23/17 Time of Evaluation: 22:59 - Subjective Subjective: Patient is still critical and lies in the ICU. He is on Carbidopa-L. Dopa and is receiving IV Mannitol and IV Decadron. He is reported to follow simple commands and is moving the Right UE and the Right LE adequately. His left side power is still aggefcted , Left UE is 1 to 2/5 the Left LE is 4 /5. At times he is oriented X 1 to 2 Serum Osmolality is 301 and this is giving us a chance to continue his IV Mannitol for more time until his condition is back to his baseline. Will get CT Brain in AM to assess for any bleed and for any midline shift. Get a new serum Osmolality in AM. VS are showing higher than usual BP, mainly Systolic in the last 2 readings. Objective - Vital Signs/Intake and Output Vital Signs (last 24 hours): Temp Pulse Resp BP Pulse Ox 98.9 F 69 15 166/80 H 100 03/23/17 20:00 03/23/17 22:40 03/23/17 20:00 03/23/17 22:40 03/23/17 20:00 Intake and Output: 03/23/17 03/24/17 18:59 06:59 Intake Total 242 Output Total 600 Balance -358 - Medications Medications: Current Medications Acetaminophen (Tylenol 325mg Tab) 650 mg PO Q4 PRN PRN Reason: Headache Last Admin: 03/15/17 16:48 Dose: 650 mg Albuterol/Ipratropium (Duoneb 3 Mg/0.5 Mg (3 Ml) Ud) 3 ml INH RTID [facility] Last Admin: 03/23/17 19:21 Dose: 3 ml Aspirin (Aspirin Supp) 300 mg [place] DAILY [facility] Last Admin: 03/23/17 09:38 Dose: 300 mg Atorvastatin Calcium (Lipitor) 40 mg PO HS [facility] Last Admin: 03/23/17 22:40 Dose: 40 mg Buspirone HCl (Buspar) 5 mg PO Q12H [facility] Last Admin: 03/14/17 23:45 Dose: Not Given Carbidopa/Levodopa (Sinemet) 1 tab PO TID [facility] Last Admin: 03/23/17 17:19 Dose: 1 tab Dexamethasone (Decadron Inj) 4 mg IVP Q6 [facility] Last Admin: 03/23/17 22:40 Dose: 4 mg Donepezil HCl (Aricept) 5 mg PO DAILY [facility] Last Admin: 03/14/17 09:42 Dose: 5 mg Finasteride (Proscar) 5 mg PO HS [facility] Last Admin: 03/23/17 22:40 Dose: 5 mg Fosphenytoin Sodium (Cerebyx) 100 mg IV Q8@0000,0800,1600 [facility] Last Admin: 03/23/17 17:11 Dose: 100 mg Insulin Human Regular (Humulin R) 0 units SC [facility] PRN Reason: Protocol Last Admin: 03/23/17 17:18 Dose: 3 unit Mannitol (Mannitol) 20 gm IV 0200,0800,1400,2000 [facility] Last Admin: 03/23/17 19:41 Dose: 20 gm Metoprolol Tartrate (Lopressor) 50 mg PO Q12 [facility] Last Admin: 03/23/17 22:40 Dose: 50 mg Mirtazapine (Remeron) 15 mg PO HS [facility] Last Admin: 03/14/17 23:45 Dose: Not Given Montelukast Sodium (Singulair) 10 mg PO HS [facility] Last Admin: 03/23/17 22:40 Dose: 10 mg Pantoprazole Sodium (Protonix Inj) 40 mg IVP DAILY [facility] Last Admin: 03/23/17 09:52 Dose: 40 mg Tamsulosin HCl (Flomax) 0.4 mg PO HS [facility] Last Admin: 03/23/17 22:40 Dose: 0.4 mg Valsartan (Diovan) 80 mg PO DAILY [facility] Last Admin: 03/23/17 09:31 Dose: 80 mg Zolpidem Tartrate (Ambien) 5 mg PO HS PRN PRN Reason: Sleep Last Admin: 03/14/17 00:26 Dose: 5 mg - Labs Labs: 03/23/17 04:50 03/23/17 04:50 PT 11.0 Seconds (9.8-13.1) 03/13/17 14:40 INR 1.0 (0.9-1.2) 03/13/17 14:40 APTT 22.0 Seconds (25.6-37.1) L 03/13/17 14:40 Assessment and Plan (1) Dizziness Status: Resolved (2) Headache Status: Resolved (3) Dementia Status: Chronic (4) Inability to walk Status: Chronic (5) BPH (benign prostatic hyperplasia) Status: Chronic (6) CVA (cerebral vascular accident) Assessment & Plan: He is suffering from Left Hemiparesis, massive cerebral infarct. Status: Acute
[2017-03-24] MEDS: Fosphenytoin 100 mg/2 ml Inj IV SCH ×3 (01:28→17:00)
[2017-03-24] MEDS: Mannitol 12.5 gm/50 ml Inj IV SCH ×4 (02:00→21:44)
[2017-03-24] MEDS: Dexamethasone 4 mg/1 ml IVP SCH ×4 (04:00→21:06)
[2017-03-24 06:34] LABS: BASO # 0.1 K/uL (0.0-0.2); BASO % 0.7 % (0.0-2.0); EOS % 0.1 % (0.0-4.0); HEMOGLOBIN 14.8 g/dL (12.0-18.0); LYMPH # 2.1 K/uL (1.0-4.3); LYMPH % 16.4 % (20.0-40.0); MEAN CELL VOLUME 93.4 fl (80.0-94.0); MEAN CORPUSCULAR HEMOGLOBIN 29.9 pg (27.0-31.0); MEAN PLATELET VOLUME 8.6 fl (7.2-11.7); MONO # 0.7 K/uL (0.0-0.8); MONO % 5.7 % (0.0-10.0); NEUT # 9.7 K/uL (1.8-7.0); NEUT % 77.1 % (50.0-75.0); RBC 4.94 Mil/uL (4.40-5.90); RED CELL DISTRIBUTION WIDTH 14.1 % (11.5-14.5); WHITE BLOOD COUNT 12.6 K/uL (4.8-10.8)
[2017-03-24] MEDS: Insulin Regular 100 units/ml SC SCH ×4 (06:34→23:28)
[2017-03-24 06:46] LABS: ALBUMIN 4.1 g/dL (3.5-5.0); ALT/SGPT 41 U/L (21-72); AST/SGOT 88 U/L (17-59); BLOOD UREA NITROGEN 32 mg/dl (9-20); CALCIUM 9.6 mg/dL (8.4-10.2); GFR AFRICAN-AMERICAN > 60; GFR NON-AFRICAN AMERICAN > 60
[2017-03-24] MEDS: Albuterol-Ipratrop 3 mg / 0.5 (3 ml) UD INH SCH ×3 (07:22→19:49)
--- NOTE | 2017-03-24 09:41 | CARD ---
APPROVED REPORT EKG Measurement Heart [id number] ID [id number] <Conclusion> Sinus rhythm with sinus arrhythmia with 1st degree AV block with occasional premature ventricular complexes T wave abnormality, consider lateral ischemia Prolonged QT Abnormal ECG
--- NOTE | 2017-03-24 15:15 | CT ---
PROCEDURE: CT HEAD WITHOUT CONTRAST. HISTORY: CVA, Left Hemiplegia COMPARISON: CT head dated 03/21/2017. TECHNIQUE: Axial computed tomography images were obtained through the head/brain without intravenous contrast. Radiation dose: Total exam DLP = 1465.3 mGy-cm. This CT exam was performed using one or more of the following dose reduction techniques: Automated exposure control, adjustment of the mA and/or kV according to patient size, and/or use of iterative reconstruction technique. FINDINGS: There is severe motion artifact which markedly limits evaluation, making the study is nondiagnostic. Large right MACHINE [employer]EMENT[employer] territory infarction is redemonstrated as well as infarcts involving the caudate head and anterior limb internal capsule. No significant gross interval change is evident. IMPRESSION: Markedly limited examination due to severe motion artifact. No significant gross interval change.
[2017-03-24 16:25] LABS: BLOOD UREA NITROGEN 35 mg/dl (9-20); CALCIUM 9.6 mg/dL (8.4-10.2); GFR AFRICAN-AMERICAN > 60; GFR NON-AFRICAN AMERICAN > 60
--- NOTE | 2017-03-24 19:29 | CP.PCM.PN ---
Subjective - Date & Time of Evaluation Date of Evaluation: 03/24/17 Time of Evaluation: 16:00 - Subjective Subjective: F/U acute CVA Pt awake. talking confused at times, has CT head today. Objective - Vital Signs/Intake and Output Vital Signs (last 24 hours): Temp Pulse Resp BP Pulse Ox 99 F 83 20 145/71 96 03/24/17 16:00 03/24/17 18:00 03/24/17 18:00 03/24/17 16:00 03/24/17 18:00 Intake and Output: 03/24/17 03/25/17 18:59 06:59 Intake Total 308 Output Total 500 Balance -192 - Medications Medications: Current Medications Acetaminophen (Tylenol 325mg Tab) 650 mg PO Q4 PRN PRN Reason: Headache Last Admin: 03/15/17 16:48 Dose: 650 mg Albuterol/Ipratropium (Duoneb 3 Mg/0.5 Mg (3 Ml) Ud) 3 ml INH RTID [facility] Last Admin: 03/24/17 14:07 Dose: Not Given Aspirin (Aspirin Supp) 300 mg [place] DAILY [facility] Last Admin: 03/24/17 09:35 Dose: 300 mg Atorvastatin Calcium (Lipitor) 40 mg PO HS [facility] Last Admin: 03/23/17 22:40 Dose: 40 mg Buspirone HCl (Buspar) 5 mg PO Q12H [facility] Last Admin: 03/14/17 23:45 Dose: Not Given Carbidopa/Levodopa (Sinemet) 1 tab PO TID [facility] Last Admin: 03/24/17 17:15 Dose: 1 tab Dexamethasone (Decadron Inj) 4 mg IVP Q6 [facility] Last Admin: 03/24/17 17:00 Dose: 4 mg Donepezil HCl (Aricept) 5 mg PO DAILY [facility] Last Admin: 03/14/17 09:42 Dose: 5 mg Finasteride (Proscar) 5 mg PO HS [facility] Last Admin: 03/23/17 22:40 Dose: 5 mg Fosphenytoin Sodium (Cerebyx) 100 mg IV Q8@0000,0800,1600 [facility] Last Admin: 03/24/17 17:00 Dose: 100 mg Insulin Human Regular (Humulin R) 0 units SC ACHS [facility] PRN Reason: Protocol Last Admin: 03/24/17 17:33 Dose: Not Given Mannitol (Mannitol) 20 gm IV 0200,0800,1400,2000 [facility] Last Admin: 03/24/17 17:07 Dose: 20 gm Metoprolol Tartrate (Lopressor) 50 mg PO Q12 [facility] Last Admin: 03/24/17 09:48 Dose: 50 mg Mirtazapine (Remeron) 15 mg PO HS [facility] Last Admin: 03/14/17 23:45 Dose: Not Given Montelukast Sodium (Singulair) 10 mg PO HS [facility] Last Admin: 03/23/17 22:40 Dose: 10 mg Tamsulosin HCl (Flomax) 0.4 mg PO HS [facility] Last Admin: 03/23/17 22:40 Dose: 0.4 mg Valsartan (Diovan) 80 mg PO DAILY [facility] Last Admin: 03/24/17 09:50 Dose: 80 mg Zolpidem Tartrate (Ambien) 5 mg PO HS PRN PRN Reason: Sleep Last Admin: 03/14/17 00:26 Dose: 5 mg - Labs Labs: 03/24/17 05:40 03/24/17 16:00 PT 11.0 Seconds (9.8-13.1) 03/13/17 14:40 INR 1.0 (0.9-1.2) 03/13/17 14:40 APTT 22.0 Seconds (25.6-37.1) L 03/13/17 14:40 - Constitutional Appears: Chronically Ill - Head Exam Head Exam: NORMAL INSPECTION - Eye Exam Eye Exam: PERRL - ENT Exam ENT Exam: Normal Exam - Neck Exam Neck Exam: Normal Inspection - Respiratory Exam Respiratory Exam: Decreased Breath Sounds (at bases) - Cardiovascular Exam Cardiovascular Exam: REGULAR RHYTHM - GI/Abdominal Exam GI & Abdominal Exam: Soft, Normal Bowel Sounds - Extremities Exam Extremities Exam: Normal Inspection - Back Exam Back Exam: NORMAL INSPECTION - Neurological Exam Neurological Exam: Awake Additional comments: Able to talk, follows commands, minimal movement LUE,LLE, moves well RUE, RLE against gravity. - Skin Skin Exam: Warm Assessment and Plan (1) Acute CVA (cerebrovascular accident) Status: Acute (2) Encephalopathy Status: Acute (3) Chest pain Status: Resolved (4) Anxiety and depression Status: Chronic (5) Generalized weakness Status: Chronic (6) Dementia Status: Chronic (7) HTN (hypertension) Status: Chronic (8) COPD (chronic obstructive pulmonary disease) Status: Chronic (9) History of CVA (cerebrovascular accident) Status: Chronic (10) Headache Status: Resolved (11) History of laminectomy Status: Acute (12) Cardiac arrhythmia Status: Acute - Assessment and Plan (Free Text) Plan: F/U Ct of Head ICU TIme: 39 min.
--- NOTE | 2017-03-25 00:31 | CP.PCM.PN ---
Subjective - Date & Time of Evaluation Date of Evaluation: 03/24/17 Time of Evaluation: 22:00 - Subjective Subjective: CT Brain is showing no midline shift and and change in the size of the multiple Infarcts. Serum Osmolality is 305. Blood glucose is adjusted on Insulin sliding scale. His rigidity is controlled by the Carbidopa-Levodopa. He is more awake, responsive but confused. He might answer some questions regarding orientation at time right and at Other time wrong. He is delirious. He has inability to move the Left Upper Extremity, except for some flickering, but moves the left LE at about 4/5. PT can help his weakness described. His B.P. is slightly elevated and needs to stay around 130/80. Objective - Vital Signs/Intake and Output Vital Signs (last 24 hours): Temp Pulse Resp BP Pulse Ox 98.5 F 81 18 154/79 H 96 03/25/17 00:15 03/25/17 00:15 03/25/17 00:15 03/25/17 00:15 03/25/17 00:15 Intake and Output: 03/24/17 03/25/17 18:59 06:59 Intake Total 308 Output Total 500 Balance -192 - Medications Medications: Current Medications Acetaminophen (Tylenol 325mg Tab) 650 mg PO Q4 PRN PRN Reason: Headache Last Admin: 03/15/17 16:48 Dose: 650 mg Albuterol/Ipratropium (Duoneb 3 Mg/0.5 Mg (3 Ml) Ud) 3 ml INH RTID [facility] Last Admin: 03/24/17 19:49 Dose: 3 ml Aspirin (Aspirin Supp) 300 mg [place] DAILY [facility] Last Admin: 03/24/17 09:35 Dose: 300 mg Atorvastatin Calcium (Lipitor) 40 mg PO HS [facility] Last Admin: 03/24/17 21:05 Dose: 40 mg Buspirone HCl (Buspar) 5 mg PO Q12H [facility] Last Admin: 03/14/17 23:45 Dose: Not Given Carbidopa/Levodopa (Sinemet) 1 tab PO TID [facility] Last Admin: 03/24/17 17:15 Dose: 1 tab Dexamethasone (Decadron Inj) 4 mg IVP Q6 [facility] Last Admin: 03/24/17 21:06 Dose: 4 mg Donepezil HCl (Aricept) 5 mg PO DAILY [facility] Last Admin: 03/14/17 09:42 Dose: 5 mg Finasteride (Proscar) 5 mg PO HS [facility] Last Admin: 03/24/17 21:05 Dose: 5 mg Fosphenytoin Sodium (Cerebyx) 100 mg IV Q8@0000,0800,1600 [facility] Last Admin: 03/24/17 17:00 Dose: 100 mg Insulin Human Regular (Humulin R) 0 units SC ACHS [facility] PRN Reason: Protocol Last Admin: 03/24/17 23:28 Dose: Not Given Mannitol (Mannitol) 20 gm IV 0200,0800,1400,2000 [facility] Last Admin: 03/24/17 21:44 Dose: 20 gm Metoprolol Tartrate (Lopressor) 50 mg PO Q12 [facility] Last Admin: 03/24/17 21:04 Dose: 50 mg Mirtazapine (Remeron) 15 mg PO HS [facility] Last Admin: 03/14/17 23:45 Dose: Not Given Montelukast Sodium (Singulair) 10 mg PO HS [facility] Last Admin: 03/24/17 21:05 Dose: 10 mg Tamsulosin HCl (Flomax) 0.4 mg PO HS [facility] Last Admin: 03/24/17 21:05 Dose: 0.4 mg Valsartan (Diovan) 80 mg PO DAILY [facility] Last Admin: 03/24/17 09:50 Dose: 80 mg Zolpidem Tartrate (Ambien) 5 mg PO HS PRN PRN Reason: Sleep Last Admin: 03/14/17 00:26 Dose: 5 mg - Labs Labs: 03/24/17 05:40 03/24/17 16:00 PT 11.0 Seconds (9.8-13.1) 03/13/17 14:40 INR 1.0 (0.9-1.2) 03/13/17 14:40 APTT 22.0 Seconds (25.6-37.1) L 03/13/17 14:40 Assessment and Plan (1) Dizziness Status: Resolved (2) Headache Status: Resolved (3) Dementia Status: Chronic (4) Inability to walk Status: Chronic (5) BPH (benign prostatic hyperplasia) Status: Chronic (6) CVA (cerebral vascular accident) Status: Acute
[2017-03-25] MEDS: Fosphenytoin 100 mg/2 ml Inj IV SCH ×3 (00:41→17:27)
[2017-03-25] MEDS: Mannitol 12.5 gm/50 ml Inj IV SCH ×4 (02:26→20:00)
[2017-03-25] MEDS: Dexamethasone 4 mg/1 ml IVP SCH ×4 (04:01→22:00)
[2017-03-25] MEDS: Insulin Regular 100 units/ml SC SCH ×4 (06:42→22:00)
[2017-03-25] MEDS: Albuterol-Ipratrop 3 mg / 0.5 (3 ml) UD INH SCH ×3 (07:37→19:27)
--- NOTE | 2017-03-25 10:24 | EEG ---
DATE: STANDARD ELECTROENCEPHALOGRAM TECHNICAL DESCRIPTION: This is an EEG placed with electrodes according to [employer]de System by time study technologist. Total 22 electrodes were placed. EEG activity was digitally recorded referentially to P1/P2 or A1/A2 electrodes. Digital EEG now was carried out using spike detection. GENERAL DESCRIPTION: The background rhythm, there is a 10 Hz posterior dominant rhythm that is reactive, symmetric, and attenuates with eye opening. There was a normal amount of frontal beta noted bilaterally. There is no sleep recorded. Activation procedure, photic stimulation showed driving at 10 Hz. Hyperventilation showed slowing that was self resolved. There was a normal amount of sleep recorded with bilaterally symmetric 12 to 14 Hz spindles and vertex waves. There were no clinical or subclinical seizures. Abnormal activity, there were no focal epileptiform discharges noted. No clinical or subclinical seizures noted. IMPRESSION: This is a normal awake and sleep electroencephalogram. Vaibhav Alvarado MD
--- NOTE | 2017-03-25 15:32 | CP.PCM.PN ---
Subjective - Date & Time of Evaluation Date of Evaluation: 03/25/17 Time of Evaluation: 11:00 - Subjective Subjective: F/U Acute CVA Awake , able to talk , follows commands , recognize me and also his son , and a friend at bedside Objective - Vital Signs/Intake and Output Vital Signs (last 24 hours): Temp Pulse Resp BP Pulse Ox 97.5 F L 74 20 174/75 H 97 03/25/17 08:00 03/25/17 09:11 03/25/17 08:00 03/25/17 09:11 03/25/17 08:00 Intake and Output: 03/25/17 03/25/17 06:59 18:59 Intake Total 210 Output Total 800 Balance -590 - Medications Medications: Current Medications Acetaminophen (Tylenol 325mg Tab) 650 mg PO Q4 PRN PRN Reason: Headache Last Admin: 03/25/17 09:37 Dose: 650 mg Albuterol/Ipratropium (Duoneb 3 Mg/0.5 Mg (3 Ml) Ud) 3 ml INH RTID [facility] Last Admin: 03/25/17 13:36 Dose: 3 ml Aspirin (Aspirin Supp) 300 mg [place] DAILY [facility] Last Admin: 03/25/17 09:10 Dose: 300 mg Atorvastatin Calcium (Lipitor) 40 mg PO HS [facility] Last Admin: 03/24/17 21:05 Dose: 40 mg Buspirone HCl (Buspar) 5 mg PO Q12H [facility] Last Admin: 03/14/17 23:45 Dose: Not Given Carbidopa/Levodopa (Sinemet) 1 tab PO TID [facility] Last Admin: 03/25/17 12:13 Dose: 1 tab Dexamethasone (Decadron Inj) 4 mg IVP Q6 [facility] Last Admin: 03/25/17 09:11 Dose: 4 mg Donepezil HCl (Aricept) 5 mg PO DAILY [facility] Last Admin: 03/14/17 09:42 Dose: 5 mg Finasteride (Proscar) 5 mg PO HS [facility] Last Admin: 03/24/17 21:05 Dose: 5 mg Fosphenytoin Sodium (Cerebyx) 100 mg IV Q8@0000,0800,1600 [facility] Last Admin: 03/25/17 09:12 Dose: 100 mg Insulin Human Regular (Humulin R) 0 units SC ACHS [facility] PRN Reason: Protocol Last Admin: 03/25/17 12:07 Dose: 6 unit Mannitol (Mannitol) 20 gm IV 0200,0800,1400,2000 [facility] Last Admin: 03/25/17 14:14 Dose: 20 gm Metoprolol Tartrate (Lopressor) 50 mg PO Q12 [facility] Last Admin: 03/25/17 09:11 Dose: 50 mg Mirtazapine (Remeron) 15 mg PO HS [facility] Last Admin: 03/14/17 23:45 Dose: Not Given Montelukast Sodium (Singulair) 10 mg PO HS [facility] Last Admin: 03/24/17 21:05 Dose: 10 mg Tamsulosin HCl (Flomax) 0.4 mg PO HS [facility] Last Admin: 03/24/17 21:05 Dose: 0.4 mg Valsartan (Diovan) 80 mg PO DAILY [facility] Last Admin: 03/25/17 09:14 Dose: 80 mg Zolpidem Tartrate (Ambien) 5 mg PO HS PRN PRN Reason: Sleep Last Admin: 03/14/17 00:26 Dose: 5 mg - Labs Labs: 03/24/17 05:40 03/24/17 16:00 PT 11.0 Seconds (9.8-13.1) 03/13/17 14:40 INR 1.0 (0.9-1.2) 03/13/17 14:40 APTT 22.0 Seconds (25.6-37.1) L 03/13/17 14:40 - Constitutional Appears: Chronically Ill - Head Exam Head Exam: NORMAL INSPECTION - Eye Exam Eye Exam: PERRL - ENT Exam ENT Exam: Normal Exam - Neck Exam Neck Exam: Normal Inspection - Respiratory Exam Respiratory Exam: Decreased Breath Sounds (at bases) - Cardiovascular Exam Cardiovascular Exam: REGULAR RHYTHM - GI/Abdominal Exam GI & Abdominal Exam: Soft, Normal Bowel Sounds - Extremities Exam Extremities Exam: Normal Inspection - Back Exam Back Exam: NORMAL INSPECTION - Neurological Exam Neurological Exam: Awake Additional comments: Able to talk, follows commands, flaccid LUE, weakness LLE but able to move against gravity, moves well RUE and RLE - Psychiatric Exam Psychiatric exam: Normal Mood - Skin Skin Exam: Warm Assessment and Plan (1) Acute CVA (cerebrovascular accident) Status: Acute (2) Encephalopathy Status: Acute (3) Chest pain Status: Resolved (4) Anxiety and depression Status: Chronic (5) Generalized weakness Status: Chronic (6) Dementia Status: Chronic (7) HTN (hypertension) Status: Chronic (8) COPD (chronic obstructive pulmonary disease) Status: Chronic (9) History of CVA (cerebrovascular accident) Status: Chronic (10) Headache Status: Resolved (11) History of laminectomy Status: Acute (12) Cardiac arrhythmia Status: Acute - Assessment and Plan (Free Text) Plan: Neurological status greatly improved , PT eval for Acute Rehab , continue rest of treatment ICU Time: 40 min.
--- NOTE | 2017-03-26 00:23 | CP.PCM.PN ---
Subjective - Date & Time of Evaluation Date of Evaluation: 03/25/17 Time of Evaluation: 23:00 - Subjective Subjective: Patient is doing better, more awake and alert. He is on IV Decadron 4 mg Q 6 hrs and IV Mannitol 25%, 20 gm Q 6hrs. We will start tapering his Mannitol and Decadron to the same doses, but only Q12 hrs, it means half of the doses respectively. He is moving the Right LE and Right UE adequately, and the Left Lower Extremity at 4/5, while the Left UE is just flickering at times. His level of consciousness is fluctuating and he stays delirious and confused. He is reported to be more responsive when he receive vist from his family. His serum Osmolality is 303 and the Blood Glucose is still high, but remains responsive to the Insulin sliding scale. There is no gaze preference or eye shift, and he is moving his eyes appropriately and symmetrically. His massive CVA needed IV Solumedrol for 10 to 14 days to avoid brain swelling and midline shift and serious damage of the Brain against the skull. Mannitol and decadron create a milieu that prevents Brain Swelling due to hyperosmolar effect on the Brain swelling, which avoids having swelling. Will reassess in 1 to 2 days to evaluate for any rebound of a Brain Swelling. Both medicine are supposed to be administered for 10 to 14 days, which is the period of maximum swelling after a Stroke. The EEG is negative and will stop his Dilantin. Objective - Vital Signs/Intake and Output Vital Signs (last 24 hours): Temp Pulse Resp BP Pulse Ox 97.2 F L 80 20 108/70 96 03/25/17 20:01 03/25/17 22:04 03/25/17 20:01 03/25/17 22:04 03/25/17 20:01 - Medications Medications: Current Medications Acetaminophen (Tylenol 325mg Tab) 650 mg PO Q4 PRN PRN Reason: Headache Last Admin: 03/25/17 09:37 Dose: 650 mg Albuterol/Ipratropium (Duoneb 3 Mg/0.5 Mg (3 Ml) Ud) 3 ml INH RTID [facility] Last Admin: 03/25/17 19:27 Dose: 3 ml Aspirin (Aspirin Supp) 300 mg [place] DAILY [facility] Last Admin: 03/25/17 09:10 Dose: 300 mg Atorvastatin Calcium (Lipitor) 40 mg PO HS [facility] Last Admin: 03/25/17 22:05 Dose: 40 mg Buspirone HCl (Buspar) 5 mg PO Q12H [facility] Last Admin: 03/14/17 23:45 Dose: Not Given Carbidopa/Levodopa (Sinemet) 1 tab PO TID [facility] Last Admin: 03/25/17 17:28 Dose: 1 tab Dexamethasone (Decadron Inj) 4 mg IVP Q6 [facility] Last Admin: 03/25/17 22:00 Dose: 4 mg Donepezil HCl (Aricept) 5 mg PO DAILY [facility] Last Admin: 03/14/17 09:42 Dose: 5 mg Finasteride (Proscar) 5 mg PO HS [facility] Last Admin: 03/25/17 22:03 Dose: 5 mg Dexamethasone 4 mg/ Sodium (Chloride) 51 mls @ 102 mls/hr IVPB Q12 [facility] Insulin Human Regular (Humulin R) 0 units SC ACHS [facility] PRN Reason: Protocol Last Admin: 03/25/17 22:00 Dose: Not Given Mannitol (Mannitol) 20 gm IV 799,1999 [facility] Metoprolol Tartrate (Lopressor) 50 mg PO Q12 [facility] Last Admin: 03/25/17 22:04 Dose: 50 mg Mirtazapine (Remeron) 15 mg PO HS [facility] Last Admin: 03/14/17 23:45 Dose: Not Given Montelukast Sodium (Singulair) 10 mg PO HS [facility] Last Admin: 03/25/17 22:05 Dose: 10 mg Tamsulosin HCl (Flomax) 0.4 mg PO HS [facility] Last Admin: 03/25/17 22:05 Dose: 0.4 mg Valsartan (Diovan) 80 mg PO DAILY [facility] Last Admin: 03/25/17 09:14 Dose: 80 mg Zolpidem Tartrate (Ambien) 5 mg PO HS PRN PRN Reason: Sleep Last Admin: 03/14/17 00:26 Dose: 5 mg - Labs Labs: 03/24/17 05:40 03/24/17 16:00 PT 11.0 Seconds (9.8-13.1) 03/13/17 14:40 INR 1.0 (0.9-1.2) 03/13/17 14:40 APTT 22.0 Seconds (25.6-37.1) L 03/13/17 14:40 Assessment and Plan (1) Dizziness Status: Resolved (2) Headache Status: Resolved (3) Dementia Status: Chronic (4) Inability to walk Status: Chronic (5) BPH (benign prostatic hyperplasia) Status: Chronic (6) CVA (cerebral vascular accident) Status: Acute
[2017-03-26] MEDS: Fosphenytoin 100 mg/2 ml Inj IV SCH (00:37)
[2017-03-26] MEDS: Dexamethasone 4 mg/1 ml IVP SCH ×3 (03:44→20:43)
[2017-03-26] MEDS: Insulin Regular 100 units/ml SC SCH ×4 (06:57→21:34)
[2017-03-26] MEDS: Albuterol-Ipratrop 3 mg / 0.5 (3 ml) UD INH SCH ×3 (07:33→19:30)
[2017-03-26] MEDS ORDERED: Mannitol 12.5 gm/50 ml Inj IV SCH (08:00)
[2017-03-26] MEDS ORDERED: Dexamethasone 4 MG in Sodium Chloride 0.9% 50 ML IVPB SCH (09:00)
[2017-03-26] MEDS ORDERED: Dexamethasone 4 mg/1 ml IV SCH (09:00)
--- NOTE | 2017-03-26 19:42 | CP.PCM.PN ---
Subjective - Date & Time of Evaluation Date of Evaluation: 03/26/17 Time of Evaluation: 19:33 - Subjective Subjective: He is still on IV Decadron 4mg Q 12hrs, IV Mannitol 25% 20 gm Q 12 hrs. We will taper his Decadron and Mannitol to be stopped. CVA Occured on 03/16/2017 We will stop Carbidopa/ levodopa starting He has a more stable mental status. He is moving the Right side adequately, however the left side is weak in the Left LE at 4/5 and 1/5 in the Left UE. Normal Vital signs. The serum Osmolality is 302. Objective - Vital Signs/Intake and Output Vital Signs (last 24 hours): Temp Pulse Resp BP Pulse Ox 97.5 F L 80 18 111/69 95 03/26/17 16:53 03/26/17 16:53 03/26/17 16:53 03/26/17 16:53 03/26/17 16:53 - Medications Medications: Current Medications Acetaminophen (Tylenol 325mg Tab) 650 mg PO Q4 PRN PRN Reason: Headache Last Admin: 03/26/17 09:14 Dose: 650 mg Albuterol/Ipratropium (Duoneb 3 Mg/0.5 Mg (3 Ml) Ud) 3 ml INH RTID [facility] Last Admin: 03/26/17 19:30 Dose: 3 ml Aspirin (Ecotrin) 81 mg PO DAILY [facility] Atorvastatin Calcium (Lipitor) 40 mg PO HS [facility] Last Admin: 03/25/17 22:05 Dose: 40 mg Carbidopa/Levodopa (Sinemet) 1 tab PO TID [facility] Last Admin: 03/26/17 17:34 Dose: 1 tab Dexamethasone (Decadron Inj) 4 mg IVP Q12 [facility] Finasteride (Proscar) 5 mg PO HS [facility] Last Admin: 03/25/17 22:03 Dose: 5 mg Insulin Human Regular (Humulin R) 0 units SC ACHS [facility] PRN Reason: Protocol Last Admin: 03/26/17 17:34 Dose: 2 unit Mannitol (Mannitol) 20 gm IV 0800,1999 [facility] Last Admin: 03/26/17 09:05 Dose: 20 gm Metoprolol Tartrate (Lopressor) 50 mg PO Q12 [facility] Last Admin: 03/26/17 09:15 Dose: 50 mg Montelukast Sodium (Singulair) 10 mg PO HS [facility] Last Admin: 03/25/17 22:05 Dose: 10 mg Tamsulosin HCl (Flomax) 0.4 mg PO HS [facility] Last Admin: 03/25/17 22:05 Dose: 0.4 mg Valsartan (Diovan) 80 mg PO DAILY [facility] Last Admin: 03/26/17 09:07 Dose: 80 mg - Labs Labs: 03/24/17 05:40 03/24/17 16:00 PT 11.0 Seconds (9.8-13.1) 03/13/17 14:40 INR 1.0 (0.9-1.2) 03/13/17 14:40 APTT 22.0 Seconds (25.6-37.1) L 03/13/17 14:40 Assessment and Plan (1) Dizziness Status: Resolved (2) Headache Status: Resolved (3) Dementia Status: Chronic (4) Inability to walk Status: Chronic (5) BPH (benign prostatic hyperplasia) Status: Chronic (6) CVA (cerebral vascular accident) Status: Acute
[2017-03-27] MEDS ORDERED: Mannitol 12.5 gm/50 ml Inj IV ONE ×2 (08:00→09:00)
[2017-03-27] MEDS: Albuterol-Ipratrop 3 mg / 0.5 (3 ml) UD INH SCH ×3 (08:08→19:22)
[2017-03-27] MEDS ORDERED: Dexamethasone 4 MG in Sodium Chloride 0.9% 50 ML IVPB SCH (09:00)
[2017-03-27] MEDS: Dexamethasone 4 mg/1 ml IVP SCH (09:12)
[2017-03-27] MEDS: Insulin Regular 100 units/ml SC SCH ×4 (09:13→22:50)
--- NOTE | 2017-03-27 10:10 | CP.PCM.PN ---
Subjective - Date & Time of Evaluation Date of Evaluation: 03/26/17 (This note is for 03/26/17.) Time of Evaluation: 15:00 - Subjective Subjective: F/U Acute CVA Alert, answer questions , able to talk with family at bedside , follows commands Objective - Vital Signs/Intake and Output Vital Signs (last 24 hours): Temp Pulse Resp BP Pulse Ox 98.4 F 63 18 146/73 96 03/27/17 08:39 03/27/17 09:08 03/27/17 08:39 03/27/17 09:08 03/27/17 08:39 Intake and Output: 03/27/17 03/27/17 06:59 18:59 Intake Total 120 Output Total 350 Balance -230 - Medications Medications: Current Medications Acetaminophen (Tylenol 325mg Tab) 650 mg PO Q4 PRN PRN Reason: Headache Last Admin: 03/26/17 09:14 Dose: 650 mg Albuterol/Ipratropium (Duoneb 3 Mg/0.5 Mg (3 Ml) Ud) 3 ml INH RTID [facility] Last Admin: 03/27/17 08:08 Dose: 3 ml Aspirin (Ecotrin) 81 mg PO DAILY [facility] Last Admin: 03/27/17 09:10 Dose: 81 mg Atorvastatin Calcium (Lipitor) 40 mg PO HS [facility] Last Admin: 03/26/17 21:29 Dose: 40 mg Carbidopa/Levodopa (Sinemet) 1 tab PO TID [facility] Last Admin: 03/27/17 09:08 Dose: 1 tab Dexamethasone (Decadron Inj) 4 mg IV DAILY [facility] Last Admin: 03/27/17 09:11 Dose: 4 mg Finasteride (Proscar) 5 mg PO HS [facility] Last Admin: 03/26/17 21:30 Dose: 5 mg Insulin Human Regular (Humulin R) 0 units SC ACHS [facility] PRN Reason: Protocol Last Admin: 03/27/17 09:13 Dose: 2 units Metoprolol Tartrate (Lopressor) 50 mg PO Q12 [facility] Last Admin: 03/27/17 09:08 Dose: 50 mg Montelukast Sodium (Singulair) 10 mg PO HS [facility] Last Admin: 03/26/17 21:29 Dose: 10 mg Tamsulosin HCl (Flomax) 0.4 mg PO HS [facility] Last Admin: 02/06/18 21:29 Dose: 0.4 mg Valsartan (Diovan) 80 mg PO DAILY [facility] Last Admin: 03/27/17 09:09 Dose: 80 mg - Labs Labs: 03/24/17 05:40 03/24/17 16:00 PT 11.0 Seconds (9.8-13.1) 03/13/17 14:40 INR 1.0 (0.9-1.2) 03/13/17 14:40 APTT 22.0 Seconds (25.6-37.1) L 03/13/17 14:40 - Constitutional Appears: Chronically Ill - Head Exam Head Exam: NORMAL INSPECTION - Eye Exam Eye Exam: PERRL - ENT Exam ENT Exam: Normal Exam - Neck Exam Neck Exam: Normal Inspection - Respiratory Exam Respiratory Exam: Decreased Breath Sounds (at bases) - Cardiovascular Exam Cardiovascular Exam: REGULAR RHYTHM - GI/Abdominal Exam GI & Abdominal Exam: Soft, Normal Bowel Sounds - Extremities Exam Extremities Exam: Normal Inspection - Back Exam Back Exam: NORMAL INSPECTION - Neurological Exam Neurological Exam: Awake Additional comments: Able to talk, follows commands, flaccid LUE, weakness LLE but able to move against gravity. Moves well RUE and RLE. - Psychiatric Exam Psychiatric exam: Normal Mood - Skin Skin Exam: Warm Assessment and Plan (1) Acute CVA (cerebrovascular accident) Status: Acute (2) Encephalopathy Status: Acute (3) Anxiety and depression Status: Chronic (4) Generalized weakness Status: Chronic (5) Dementia Status: Chronic (6) HTN (hypertension) Status: Chronic (7) COPD (chronic obstructive pulmonary disease) Status: Chronic (8) History of CVA (cerebrovascular accident) Status: Chronic (9) Headache Status: Resolved (10) History of laminectomy Status: Acute (11) Cardiac arrhythmia Status: Acute - Assessment and Plan (Free Text) Plan: continue SoluMedrol , Manitol , BP and BS control , PT
--- NOTE | 2017-03-27 13:28 | PQF GENQUE ---
This form is a permanent part of the medical record 03/27/17 Dr. Dahl, Please provide the underlying diagnosis causing the patient's documented symptom of chest pain. 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 EKG NSR with first degree AV Block, ST T wave abnormality, consider lateral ischemia, prolonged QT. Troponin x [address] head on admission: No intracranial mass, hemorrhage or evidence of acute infarct. Age related atrophy with chronic white matter ischemic change in bilateral basal ganglia lacunar infarcts. Clarification of your documentation is requested to better reflect the severity of illness and intensity of treatment of your patient. Indicators present [] Specify: [] [] Specify: [] [] Specify: [] [] Specify: [] Location in the medical record that reflects the above clinical findings: [] Treatment Provided: [] PHYSICIAN'S RESPONSE Based on your medical judgment of the clinical indicators outlined above please clarify the following: [] Practitioner response [] If unable to determine, please check the box, sign and date. Present On Admission (POA) Indicator: [] Present at the time of admission [] Not present at the time of admission [] Clinically Undetermined In responding to this query, please exercise your independent professional judgment. The fact that a question is asked does not imply that any particular answer is desired or expected. Thank you for your clarification on this documentation. If you have any questions please call:ext [phone] * Thank you, Ying Guillory RN CDMP [facility]
[2017-03-27 13:54] LABS: HEMOGLOBIN 14.5 g/dL (12.0-18.0); MEAN CELL VOLUME 92.6 fl (80.0-94.0); MEAN CORPUSCULAR HEMOGLOBIN 29.3 pg (27.0-31.0); MEAN CORPUSCULAR HGB CONC 31.7 g/dL (33.0-37.0); RBC 4.95 Mil/uL (4.40-5.90); RED CELL DISTRIBUTION WIDTH 13.8 % (11.5-14.5); WHITE BLOOD COUNT 15.1 K/uL (4.8-10.8)
[2017-03-27 14:17] LABS: BLOOD UREA NITROGEN 40 mg/dl (9-20); CALCIUM 9.2 mg/dL (8.4-10.2); GFR AFRICAN-AMERICAN > 60; GFR NON-AFRICAN AMERICAN > 60
--- NOTE | 2017-03-27 16:42 | CP.PCM.PN ---
Subjective - Date & Time of Evaluation Date of Evaluation: 03/27/17 Time of Evaluation: 13:00 - Subjective Subjective: F/U Acute CVA. Awake, able to talk with his family, recalling previous events with Them , follows commands Objective - Vital Signs/Intake and Output Vital Signs (last 24 hours): Temp Pulse Resp BP Pulse Ox 97.7 F 64 16 123/67 96 03/27/17 15:44 03/27/17 15:44 03/27/17 15:44 03/27/17 15:44 03/27/17 15:44 Intake and Output: 03/27/17 03/27/17 06:59 18:59 Intake Total 120 Output Total 350 Balance -230 - Medications Medications: Current Medications Acetaminophen (Tylenol 325mg Tab) 650 mg PO Q4 PRN PRN Reason: Headache Last Admin: 03/26/17 09:14 Dose: 650 mg Albuterol/Ipratropium (Duoneb 3 Mg/0.5 Mg (3 Ml) Ud) 3 ml INH RTID [facility] Last Admin: 03/27/17 13:24 Dose: 3 ml Aspirin (Ecotrin) 81 mg PO DAILY [facility] Last Admin: 03/27/17 09:10 Dose: 81 mg Atorvastatin Calcium (Lipitor) 40 mg PO HS [facility] Last Admin: 03/26/17 21:29 Dose: 40 mg Carbidopa/Levodopa (Sinemet) 1 tab PO TID [facility] Last Admin: 03/27/17 16:34 Dose: 1 tab Dexamethasone (Decadron Inj) 4 mg IV DAILY [facility] Last Admin: 03/27/17 09:11 Dose: 4 mg Finasteride (Proscar) 5 mg PO HS [facility] Last Admin: 03/26/17 21:30 Dose: 5 mg Insulin Human Regular (Humulin R) 0 units SC ACHS [facility] PRN Reason: Protocol Last Admin: 03/27/17 16:34 Dose: 3 units Metformin HCl (Glucophage) 500 mg PO BIDWM [facility] Last Admin: 03/27/17 16:34 Dose: 500 mg Metoprolol Tartrate (Lopressor) 50 mg PO Q12 [facility] Last Admin: 03/27/17 09:08 Dose: 50 mg Montelukast Sodium (Singulair) 10 mg PO HS [facility] Last Admin: 03/26/17 21:29 Dose: 10 mg Tamsulosin HCl (Flomax) 0.4 mg PO HS [facility] Last Admin: 03/26/17 21:29 Dose: 0.4 mg Valsartan (Diovan) 80 mg PO DAILY [facility] Last Admin: 03/27/17 09:09 Dose: 80 mg - Labs Labs: 03/27/17 13:43 03/27/17 13:43 PT 11.0 Seconds (9.8-13.1) 03/13/17 14:40 INR 1.0 (0.9-1.2) 03/13/17 14:40 APTT 22.0 Seconds (25.6-37.1) L 03/13/17 14:40 - Constitutional Appears: Chronically Ill - Head Exam Head Exam: NORMAL INSPECTION - Eye Exam Eye Exam: PERRL - ENT Exam ENT Exam: Normal Exam - Neck Exam Neck Exam: Normal Inspection - Respiratory Exam Respiratory Exam: Decreased Breath Sounds (at bases) - Cardiovascular Exam Cardiovascular Exam: REGULAR RHYTHM - GI/Abdominal Exam GI & Abdominal Exam: Soft, Normal Bowel Sounds - Extremities Exam Extremities Exam: Normal Inspection - Back Exam Back Exam: NORMAL INSPECTION - Neurological Exam Neurological Exam: Alert, Awake Additional comments: Able to talk,follows commands, increase movemment LUE , weakness, LLE but able to move against gravity. Moves well RUE, LLE. - Psychiatric Exam Psychiatric exam: Normal Mood - Skin Skin Exam: Warm Assessment and Plan (1) Acute CVA (cerebrovascular accident) Status: Acute (2) Encephalopathy Status: Acute (3) Chest pain Status: Deleted (4) Anxiety and depression Status: Chronic (5) Generalized weakness Status: Chronic (6) Dementia Status: Chronic (7) HTN (hypertension) Status: Chronic (8) COPD (chronic obstructive pulmonary disease) Status: Chronic (9) History of CVA (cerebrovascular accident) Status: Chronic (10) Headache Status: Resolved (11) History of laminectomy Status: Acute (12) Cardiac arrhythmia Status: Acute - Assessment and Plan (Free Text) Plan: great improvement with PT , increase mobility LUE and LLE, Patient with Periods of somnolence at daytime, Patient's family raise the posibility of previous PARMJIT , will order BIPAP overnight
--- NOTE | 2017-03-28 00:31 | CP.PCM.PN ---
Subjective - Date & Time of Evaluation Date of Evaluation: 03/27/17 Time of Evaluation: 23:00 - Subjective Subjective: Patient is doing much less than before after stopping the Decadron 4 mg Q 6 hrs and the Mannitol 25 % 20gm Q 6hrs based on the request of NICOLASA Umana. He is supposed to stay on this combination for at least 2 full weeks after the CVA, if not more. The purpose was to transfer him to a Rehab Facility, but he was not accepted in an acute Rehab and was only accepted in a subacute Rehab. His mental status is much less than before, as he was awake, alert Oriented X 3, now he hardly remembers his name and is unable to have any conversation as he is lethargic. The family objects a transfer to a subacute rehab and seek an Acute Rehab, which is not accepted by the acute Rehab facility with this limited level of consciousness and left sided weakness. His left UE is not moving, after it was 1 to 2 /5. His left LE is hardly moving after it was used to be 4/5 in power. He is able to move the right side with a power of 4+/5 I recommend to restart the Mannitol 25% 20 gm Q 6 Hrs and the Decadron 4 mg Q 6 hrs for few more days, reinstate the Glucose Sliding Scale and the daily Osmolality in an attempt to bring his Mental Status to his previous base line and his power in the Left Side to his former level. Serum Osmolality is 303, serum Glucose is 165 to 254 Objective - Vital Signs/Intake and Output Vital Signs (last 24 hours): Temp Pulse Resp BP Pulse Ox 97.8 F 78 18 100/68 97 03/27/17 19:59 03/27/17 21:54 03/27/17 19:59 03/27/17 21:07 03/27/17 19:59 - Medications Medications: Current Medications Acetaminophen (Tylenol 325mg Tab) 650 mg PO Q4 PRN PRN Reason: Headache Last Admin: 03/26/17 09:14 Dose: 650 mg Albuterol/Ipratropium (Duoneb 3 Mg/0.5 Mg (3 Ml) Ud) 3 ml INH RTID [facility] Last Admin: 03/27/17 19:22 Dose: 3 ml Aspirin (Ecotrin) 81 mg PO DAILY [facility] Last Admin: 03/27/17 09:10 Dose: 81 mg Atorvastatin Calcium (Lipitor) 40 mg PO HS [facility] Last Admin: 03/27/17 21:06 Dose: 40 mg Carbidopa/Levodopa (Sinemet) 1 tab PO TID [facility] Last Admin: 03/27/17 16:34 Dose: 1 tab Dexamethasone (Decadron Inj) 4 mg IV DAILY [facility] Last Admin: 03/27/17 09:11 Dose: 4 mg Finasteride (Proscar) 5 mg PO HS [facility] Last Admin: 03/27/17 21:06 Dose: 5 mg Insulin Human Regular (Humulin R) 0 units SC [facility] PRN Reason: Protocol Last Admin: 03/27/17 22:50 Dose: Not Given Metformin HCl (Glucophage) 500 mg PO BIDWM [facility] Last Admin: 03/27/17 16:34 Dose: 500 mg Metoprolol Tartrate (Lopressor) 50 mg PO Q12 [facility] Last Admin: 03/27/17 21:07 Dose: Not Given Montelukast Sodium (Singulair) 10 mg PO [facility] Last Admin: 03/27/17 21:06 Dose: 10 mg Tamsulosin HCl (Flomax) 0.4 mg PO HS [facility] Last Admin: 03/27/17 21:06 Dose: 0.4 mg Valsartan (Diovan) 80 mg PO DAILY [facility] Last Admin: 03/27/17 09:09 Dose: 80 mg - Labs Labs: 03/27/17 13:43 03/27/17 13:43 PT 11.0 Seconds (9.8-13.1) 03/13/17 14:40 INR 1.0 (0.9-1.2) 03/13/17 14:40 APTT 22.0 Seconds (25.6-37.1) L 03/13/17 14:40 Assessment and Plan (1) Dizziness Status: Resolved (2) Headache Status: Resolved (3) Dementia Status: Chronic (4) Inability to walk Status: Chronic (5) BPH (benign prostatic hyperplasia) Status: Chronic (6) CVA (cerebral vascular accident) Status: Acute
[2017-03-28] MEDS: Mannitol 12.5 gm/50 ml Inj IV SCH ×4 (00:55→21:08)
[2017-03-28] MEDS: Dexamethasone 4 mg/1 ml IVP SCH ×4 (03:48→21:32)
[2017-03-28] MEDS ORDERED: Dexamethasone 4 MG in Sodium Chloride 0.9% 50 ML IVPB SCH (04:00)
[2017-03-28] MEDS: Insulin Regular 100 units/ml SC SCH ×4 (06:35→22:00)
[2017-03-28] MEDS: Albuterol-Ipratrop 3 mg / 0.5 (3 ml) UD INH SCH ×4 (08:03→19:42)
[2017-03-28] MEDS ORDERED: Mannitol 12.5 gm/50 ml Inj IV ONE (09:00)
[2017-03-28 11:11] LABS: URINE BACTERIA MOD (<OCC); URINE BILIRUBIN NEGATIVE (NEGATIVE); URINE BLOOD MODERATE (NEGATIVE); URINE CLARITY CLOUDY (Clear); URINE COLOR YELLOW (YELLOW); URINE GLUCOSE (UA) NEG (Normal); URINE LEUKOCYTE ESTERASE LARGE Leu/uL (Negative); URINE NITRATE POSITIVE (NEGATIVE); URINE PROTEIN NEGATIVE (NEGATIVE); URINE UROBILINOGEN 0.2-1.0 mg/dL (0.2-1.0); WBC CLUMPS FEW /hpf
--- NOTE | 2017-03-28 11:50 | RAD ---
PROCEDURE: CHEST RADIOGRAPH, 1 VIEW HISTORY: leukocytosis COMPARISON: Chest radiograph dated 03/13/2017. FINDINGS: LUNGS: Clear. PLEURA: Suboptimal evaluation of the left costophrenic angle. No appreciable pneumothorax. CARDIOVASCULAR: Left subclavian access AICD/ pacemaker redemonstrated. Atherosclerotic aortic calcifications. Cardiomediastinal silhouette stably enlarged. OSSEOUS STRUCTURES: Unchanged. VISUALIZED UPPER ABDOMEN: Normal. OTHER FINDINGS: Right upper extremity PICC with catheter tip in the SVC. IMPRESSION: Suboptimal evaluation of the left costophrenic angle. Otherwise, no active disease.
--- NOTE | 2017-03-28 15:33 | CP.PCM.PN ---
Subjective - Date & Time of Evaluation Date of Evaluation: 03/28/17 Time of Evaluation: 10:20 - Subjective Subjective: F/U Acute CVA AO x2 , able to talk with Family at bedside , remember remote and recent events, identified Trump name, oriented person , place , not oriented time, , Patient was taking out , not using BIPAP, He returned from CT Scan Head , complains of low back pain Objective - Vital Signs/Intake and Output Vital Signs (last 24 hours): Temp Pulse Resp BP Pulse Ox 97.4 F L 78 20 151/86 H 97 03/28/17 12:00 03/28/17 12:00 03/28/17 12:00 03/28/17 12:00 03/28/17 12:00 Intake and Output: 03/28/17 03/28/17 06:59 18:59 Intake Total 210 Output Total 350 Balance -140 - Medications Medications: Current Medications Acetaminophen (Tylenol 325mg Tab) 650 mg PO Q4 PRN PRN Reason: Headache Last Admin: 03/26/17 09:14 Dose: 650 mg Albuterol/Ipratropium (Duoneb 3 Mg/0.5 Mg (3 Ml) Ud) 3 ml INH RTID [facility] Last Admin: 03/28/17 14:00 Dose: 3 ml Aspirin (Ecotrin) 81 mg PO DAILY [facility] Last Admin: 03/28/17 09:27 Dose: 81 mg Atorvastatin Calcium (Lipitor) 40 mg PO HS [facility] Last Admin: 03/27/17 21:06 Dose: 40 mg Carbidopa/Levodopa (Sinemet) 1 tab PO TID [facility] Last Admin: 03/28/17 12:41 Dose: 1 tab Dexamethasone (Decadron Inj) 4 mg IVP Q6 [facility] Last Admin: 03/28/17 09:25 Dose: 4 mg Finasteride (Proscar) 5 mg PO HS [facility] Last Admin: 03/27/17 21:06 Dose: 5 mg Ceftriaxone Sodium 1 gm/ (Sodium Chloride) 100 mls @ 100 mls/hr IVPB DAILY [facility] PRN Reason: Protocol Insulin Human Regular (Humulin R) 0 units SC ACHS [facility] PRN Reason: Protocol Last Admin: 03/28/17 12:56 Dose: 4 units Mannitol (Mannitol) 20 gm IV Q6H [facility] Last Admin: 03/28/17 12:41 Dose: 20 gm Metformin HCl (Glucophage) 500 mg PO BIDWM [facility] Last Admin: 03/28/17 09:25 Dose: 500 mg Metoprolol Tartrate (Lopressor) 50 mg PO Q12 [facility] Last Admin: 03/28/17 09:26 Dose: 50 mg Montelukast Sodium (Singulair) 10 mg PO HS [facility] Last Admin: 03/27/17 21:06 Dose: 10 mg Tamsulosin HCl (Flomax) 0.4 mg PO [facility] Last Admin: 03/27/17 21:06 Dose: 0.4 mg Valsartan (Diovan) 80 mg PO DAILY [facility] Last Admin: 03/28/17 09:25 Dose: 80 mg - Labs Labs: 03/27/17 13:43 03/27/17 13:43 PT 11.0 Seconds (9.8-13.1) 03/13/17 14:40 INR 1.0 (0.9-1.2) 03/13/17 14:40 APTT 22.0 Seconds (25.6-37.1) L 03/13/17 14:40 - Constitutional Appears: No Acute Distress, Chronically Ill - Head Exam Head Exam: NORMAL INSPECTION - Eye Exam Eye Exam: PERRL - ENT Exam ENT Exam: Normal Exam - Neck Exam Neck Exam: Normal Inspection - Respiratory Exam Respiratory Exam: Decreased Breath Sounds (at bases) - Cardiovascular Exam Cardiovascular Exam: REGULAR RHYTHM - GI/Abdominal Exam GI & Abdominal Exam: Soft, Normal Bowel Sounds - Extremities Exam Extremities Exam: Normal Inspection - Back Exam Back Exam: NORMAL INSPECTION - Neurological Exam Neurological Exam: Awake Additional comments: Able to talk, follows commands, flaccid LUE, weakness LLE but able to move agains gravity, moves well RUE and RLE. - Psychiatric Exam Psychiatric exam: Normal Mood - Skin Skin Exam: Warm Assessment and Plan (1) Acute CVA (cerebrovascular accident) Status: Acute (2) Encephalopathy Status: Acute (3) Chest pain Status: Deleted (4) Anxiety and depression Status: Chronic (5) Generalized weakness Status: Chronic (6) Dementia Status: Chronic (7) HTN (hypertension) Status: Chronic (8) COPD (chronic obstructive pulmonary disease) Status: Chronic (9) History of CVA (cerebrovascular accident) Status: Chronic (10) Headache Status: Resolved (11) History of laminectomy Status: Acute (12) Cardiac arrhythmia Status: Acute - Assessment and Plan (Free Text) Plan: continue Decadron, Manitol as per Neurologist, continue rest of treatment and PT , BS , BP stable, f/u CT head,
[2017-03-28] MEDS ORDERED: Dexamethasone 2 MG in Sodium Chloride 0.9% 50 ML IVPB SCH (21:00)
--- NOTE | 2017-03-29 01:01 | CP.PCM.PN ---
Subjective - Date & Time of Evaluation Date of Evaluation: 03/28/17 Time of Evaluation: 23:10 - Subjective Subjective: He was restarted on IV Mannitol Q 6 hrs and IV Decadron Q 6 hrs dues to decline in his mental condition, being non responsive to verbal stimulation adequately and disoriented to place, time and person. His left side was flaccid, not moving in Left UE and just flickering in Left Lower Extremity. Currently his level of consciousness has improved being Oriented X 2 and at times X 3, he is delirious. His left side power has improved significantly as the Left UE moves up to 2 /5 and his Left UE is moving 3 to 4/5. He is burping and trying to socialize with his RN Pamela and talk to her as she has the same name of Pamela like his mother. The CT Brain is not performed yet. He is starting to have a left Wrist Drop and needs a wrist brace enhancing left wrist extension, to prevent contracture of the Left Wrist in a flexion position. Serum Osmolality is 307 Serum glucose is fluctuating, but is mostly 112 to 201 Objective - Vital Signs/Intake and Output Vital Signs (last 24 hours): Temp Pulse Resp BP Pulse Ox 97.7 F 72 20 144/74 97 03/29/17 00:13 03/29/17 00:13 03/29/17 00:13 03/29/17 00:13 03/29/17 00:13 Intake and Output: 03/28/17 03/29/17 18:59 06:59 Intake Total 1260 Output Total 750 Balance 510 - Medications Medications: Current Medications Acetaminophen (Tylenol 325mg Tab) 650 mg PO Q4 PRN PRN Reason: Headache Last Admin: 03/28/17 17:09 Dose: 650 mg Albuterol/Ipratropium (Duoneb 3 Mg/0.5 Mg (3 Ml) Ud) 3 ml INH RTID [facility] Last Admin: 03/28/17 19:42 Dose: 3 ml Aspirin (Ecotrin) 81 mg PO DAILY [facility] Last Admin: 03/28/17 09:27 Dose: 81 mg Atorvastatin Calcium (Lipitor) 40 mg PO HS [facility] Last Admin: 03/28/17 21:30 Dose: 40 mg Carbidopa/Levodopa (Sinemet) 1 tab PO TID [facility] Last Admin: 03/28/17 17:00 Dose: 1 tab Dexamethasone (Decadron Inj) 4 mg IVP Q6 [facility] Last Admin: 03/28/17 21:32 Dose: 4 mg Finasteride (Proscar) 5 mg PO HS [facility] Last Admin: 03/28/17 21:30 Dose: 5 mg Ceftriaxone Sodium 1 gm/ (Sodium Chloride) 100 mls @ 100 mls/hr IVPB DAILY [facility] PRN Reason: Protocol Last Admin: 03/28/17 17:03 Dose: 100 mls/hr Insulin Human Regular (Humulin R) 0 units SC ACHS [facility] PRN Reason: Protocol Last Admin: 03/28/17 17:06 Dose: Not Given Mannitol (Mannitol) 20 gm IV Q6H [facility] Last Admin: 03/28/17 21:08 Dose: 20 gm Metformin HCl (Glucophage) 500 mg PO BIDWM [facility] Last Admin: 03/28/17 17:00 Dose: 500 mg Metoprolol Tartrate (Lopressor) 50 mg PO Q12 [facility] Last Admin: 03/28/17 21:33 Dose: 50 mg Montelukast Sodium (Singulair) 10 mg PO HS [facility] Last Admin: 03/28/17 21:30 Dose: 10 mg Tamsulosin HCl (Flomax) 0.4 mg PO HS [facility] Last Admin: 03/28/17 21:30 Dose: 0.4 mg Valsartan (Diovan) 80 mg PO DAILY [facility] Last Admin: 03/28/17 09:25 Dose: 80 mg - Labs Labs: 03/27/17 13:43 03/27/17 13:43 PT 11.0 Seconds (9.8-13.1) 03/13/17 14:40 INR 1.0 (0.9-1.2) 03/13/17 14:40 APTT 22.0 Seconds (25.6-37.1) L 03/13/17 14:40 Assessment and Plan (1) Dizziness Status: Resolved (2) Headache Status: Resolved (3) Dementia Status: Chronic (4) Inability to walk Status: Chronic (5) BPH (benign prostatic hyperplasia) Status: Chronic (6) CVA (cerebral vascular accident) Status: Acute
[2017-03-29] MEDS: Mannitol 12.5 gm/50 ml Inj IV SCH ×4 (04:06→21:50)
[2017-03-29] MEDS: Dexamethasone 4 mg/1 ml IVP SCH ×4 (04:25→21:37)
[2017-03-29 05:52] LABS: HEMOGLOBIN 12.6 g/dL (12.0-18.0); MEAN CELL VOLUME 91.8 fl (80.0-94.0); MEAN CORPUSCULAR HEMOGLOBIN 29.8 pg (27.0-31.0); MEAN CORPUSCULAR HGB CONC 32.5 g/dL (33.0-37.0); RBC 4.24 Mil/uL (4.40-5.90); WHITE BLOOD COUNT 12.6 K/uL (4.8-10.8)
[2017-03-29 06:26] LABS: BLOOD UREA NITROGEN 26 mg/dl (9-20); CALCIUM 8.6 mg/dL (8.4-10.2); GFR AFRICAN-AMERICAN > 60; GFR NON-AFRICAN AMERICAN > 60
[2017-03-29] MEDS: Insulin Regular 100 units/ml SC SCH ×4 (06:39→21:42)
[2017-03-29] MEDS: Albuterol-Ipratrop 3 mg / 0.5 (3 ml) UD INH SCH ×3 (07:59→19:24)
--- NOTE | 2017-03-29 13:25 | CT ---
PROCEDURE: CT HEAD WITHOUT CONTRAST. HISTORY: Follow up COMPARISON: CT head dated 03/24/2017. TECHNIQUE: Axial computed tomography images were obtained through the head/brain without intravenous contrast. Radiation dose: Total exam DLP = 2437.9 mGy-cm. This CT exam was performed using one or more of the following dose reduction techniques: Automated exposure control, adjustment of the mA and/or kV according to patient size, and/or use of iterative reconstruction technique. FINDINGS: HEMORRHAGE: No intracranial hemorrhage. BRAIN: No mass effect or edema. Stable appearance of large PIPE CHANGER territory infarction involving the right parietal occipital lobe and right thalamus as well as caudate head and anterior limb of the right internal capsule. Stable mild chronic periventricular white matter microvascular ischemic changes. VENTRICLES: Stably prominent. No hydrocephalus. CALVARIUM: Unremarkable. PARANASAL SINUSES: Unremarkable as visualized. No significant inflammatory changes. MASTOID AIR CELLS: Unremarkable as visualized. No inflammatory changes. OTHER FINDINGS: None. IMPRESSION: No acute findings. No significant interval change.
--- NOTE | 2017-03-29 16:00 | CP.PCM.PN ---
Subjective - Date & Time of Evaluation Date of Evaluation: 03/29/17 Time of Evaluation: 13:40 - Subjective Subjective: F/U Acute CVA Eyes open, answer questions with one or two words, follows commands Objective - Vital Signs/Intake and Output Vital Signs (last 24 hours): Temp Pulse Resp BP Pulse Ox 97.5 F L 67 18 149/71 100 03/29/17 12:00 03/29/17 12:00 03/29/17 12:00 03/29/17 12:00 03/29/17 12:00 Intake and Output: 03/29/17 03/29/17 06:59 18:59 Intake Total 1260 Output Total 2050 Balance -790 - Medications Medications: Current Medications Acetaminophen (Tylenol 325mg Tab) 650 mg PO Q4 PRN PRN Reason: Headache Last Admin: 03/28/17 17:09 Dose: 650 mg Albuterol/Ipratropium (Duoneb 3 Mg/0.5 Mg (3 Ml) Ud) 3 ml INH RTID [facility] Last Admin: 03/29/17 13:13 Dose: Not Given Aspirin (Ecotrin) 81 mg PO DAILY [facility] Last Admin: 03/29/17 09:03 Dose: 81 mg Atorvastatin Calcium (Lipitor) 40 mg PO HS [facility] Last Admin: 03/28/17 21:30 Dose: 40 mg Carbidopa/Levodopa (Sinemet) 1 tab PO TID [facility] Last Admin: 03/29/17 13:31 Dose: 1 tab Dexamethasone (Decadron Inj) 4 mg IVP Q6 [facility] Last Admin: 03/29/17 09:04 Dose: 4 mg Finasteride (Proscar) 5 mg PO HS [facility] Last Admin: 03/28/17 21:30 Dose: 5 mg Ceftriaxone Sodium 1 gm/ (Sodium Chloride) 100 mls @ 100 mls/hr IVPB DAILY [facility] PRN Reason: Protocol Last Admin: 03/29/17 09:00 Dose: 100 mls/hr Insulin Human Regular (Humulin R) 0 units SC ACHS [facility] PRN Reason: Protocol Last Admin: 03/29/17 13:30 Dose: 6 units Mannitol (Mannitol) 20 gm IV 0400,1000,1600,2200 [facility] Last Admin: 03/29/17 09:02 Dose: 20 gm Metformin HCl (Glucophage) 500 mg PO BIDWM [facility] Last Admin: 03/29/17 09:02 Dose: 500 mg Metoprolol Tartrate (Lopressor) 50 mg PO Q12 [facility] Last Admin: 03/29/17 09:03 Dose: 50 mg Montelukast Sodium (Singulair) 10 mg PO HS [facility] Last Admin: 03/28/17 21:30 Dose: 10 mg Tamsulosin HCl (Flomax) 0.4 mg PO HS [facility] Last Admin: 03/28/17 21:30 Dose: 0.4 mg Valsartan (Diovan) 80 mg PO DAILY [facility] Last Admin: 03/29/17 09:02 Dose: 80 mg - Labs Labs: 03/29/17 04:34 03/29/17 04:34 PT 11.0 Seconds (9.8-13.1) 03/13/17 14:40 INR 1.0 (0.9-1.2) 03/13/17 14:40 APTT 22.0 Seconds (25.6-37.1) L 03/13/17 14:40 - Constitutional Appears: Chronically Ill - Head Exam Head Exam: NORMAL INSPECTION - Eye Exam Eye Exam: PERRL - ENT Exam ENT Exam: Normal Exam - Neck Exam Neck Exam: Normal Inspection - Respiratory Exam Respiratory Exam: Decreased Breath Sounds (at bases) - Cardiovascular Exam Cardiovascular Exam: REGULAR RHYTHM - GI/Abdominal Exam GI & Abdominal Exam: Soft, Normal Bowel Sounds - Extremities Exam Extremities Exam: Normal Inspection - Back Exam Back Exam: NORMAL INSPECTION - Neurological Exam Neurological Exam: Awake Additional comments: Able to talk slowly , oriented x 2 , follows commands, L hemiparesia with improvement , limited movement LUE on command, LLE able to move against gravity, moves well RUE, RLE - Psychiatric Exam Psychiatric exam: Normal Mood - Skin Skin Exam: Warm Assessment and Plan (1) Acute CVA (cerebrovascular accident) Status: Acute (2) Encephalopathy Status: Acute (3) Anxiety and depression Status: Chronic (4) Generalized weakness Status: Chronic (5) Dementia Status: Chronic (6) HTN (hypertension) Status: Chronic (7) COPD (chronic obstructive pulmonary disease) Status: Chronic (8) History of CVA (cerebrovascular accident) Status: Chronic (9) Headache Status: Resolved (10) History of laminectomy Status: Acute (11) Cardiac arrhythmia Status: Acute - Assessment and Plan (Free Text) Plan: continue Dexametasone , Manitol, BP , BS control , L Hemiparesia improved , continue PT
--- NOTE | 2017-03-29 23:54 | CP.PCM.PN ---
Subjective - Date & Time of Evaluation Date of Evaluation: 03/29/17 Time of Evaluation: 22:10 - Subjective Subjective: He is doing much better as he is talking in 4 to 5 words sentences, he is oriented to the year, the President "Colin " and insists we are in [place]. He has more movements of his Left UE 3/5, the Left Lower extremity power is 2 to 3 /5. He was moving the Left Leg earlier at 4/5 He has serum Osmolality of 302 and is still on IV Mannitol 25%, 20 gm Q 6 hrs and Decadron 4 mg Q 6hrs. He on Insulin sliding scale, which is controlling his Blood Glucose. He has left Homonymous Hemianopsia and needs OT for eyes training and daily activities, PT for muscle weakness and ST for better talking as his speech is slow and slightly dysarthric. Eye vsion left Hemianopsia can be treated by using Binoculars which might help him getting back to Normal vision, especially currently Post CVA, in early srages. He needs to go out of bed to chair and to be assisted in walking so he ca be accepted to Acute Rehab. Objective - Vital Signs/Intake and Output Vital Signs (last 24 hours): Temp Pulse Resp BP Pulse Ox 97.6 F 99 H 18 147/74 95 03/29/17 20:50 03/29/17 21:40 03/29/17 20:50 03/29/17 21:40 03/29/17 20:50 Intake and Output: 03/29/17 03/30/17 18:59 06:59 Intake Total 1260 Output Total 950 Balance 310 - Medications Medications: Current Medications Acetaminophen (Tylenol 325mg Tab) 650 mg PO Q4 PRN PRN Reason: Headache Last Admin: 03/28/17 17:09 Dose: 650 mg Albuterol/Ipratropium (Duoneb 3 Mg/0.5 Mg (3 Ml) Ud) 3 ml INH RTID [facility] Last Admin: 03/29/17 19:24 Dose: 3 ml Aspirin (Ecotrin) 81 mg PO DAILY [facility] Last Admin: 03/29/17 09:03 Dose: 81 mg Atorvastatin Calcium (Lipitor) 40 mg PO HS [facility] Last Admin: 03/29/17 21:41 Dose: 40 mg Carbidopa/Levodopa (Sinemet) 1 tab PO TID [facility] Last Admin: 03/29/17 16:52 Dose: 1 tab Dexamethasone (Decadron Inj) 4 mg IVP Q6 [facility] Last Admin: 03/29/17 21:37 Dose: 4 mg Finasteride (Proscar) 5 mg PO HS [facility] Last Admin: 03/29/17 21:41 Dose: 5 mg Ceftriaxone Sodium 1 gm/ (Sodium Chloride) 100 mls @ 100 mls/hr IVPB DAILY [facility] PRN Reason: Protocol Last Admin: 03/29/17 09:00 Dose: 100 mls/hr Insulin Human Regular (Humulin R) 0 units SC ACHS [facility] PRN Reason: Protocol Last Admin: 03/29/17 21:42 Dose: Not Given Mannitol (Mannitol) 20 gm IV 0400,1000,1600,2200 [facility] Last Admin: 03/29/17 21:50 Dose: 20 gm Metformin HCl (Glucophage) 500 mg PO BIDWM [facility] Last Admin: 03/29/17 16:52 Dose: 500 mg Metoprolol Tartrate (Lopressor) 50 mg PO Q12 [facility] Last Admin: 03/29/17 21:40 Dose: 50 mg Montelukast Sodium (Singulair) 10 mg PO HS [facility] Last Admin: 03/29/17 21:40 Dose: 10 mg Tamsulosin HCl (Flomax) 0.4 mg PO HS [facility] Last Admin: 03/29/17 21:41 Dose: 0.4 mg Valsartan (Diovan) 80 mg PO DAILY [facility] Last Admin: 03/29/17 09:02 Dose: 80 mg - Labs Labs: 03/29/17 04:34 03/29/17 04:34 PT 11.0 Seconds (9.8-13.1) 03/13/17 14:40 INR 1.0 (0.9-1.2) 03/13/17 14:40 APTT 22.0 Seconds (25.6-37.1) L 03/13/17 14:40 Assessment and Plan (1) Dizziness Status: Resolved (2) Headache Status: Resolved (3) Dementia Status: Chronic (4) Inability to walk Status: Chronic (5) BPH (benign prostatic hyperplasia) Status: Chronic (6) CVA (cerebral vascular accident) Status: Acute
[2017-03-30] MEDS: Dexamethasone 4 mg/1 ml IVP SCH ×4 (04:11→21:21)
[2017-03-30] MEDS: Mannitol 12.5 gm/50 ml Inj IV SCH ×4 (04:11→21:24)
[2017-03-30] MEDS: Albuterol-Ipratrop 3 mg / 0.5 (3 ml) UD INH SCH ×3 (07:45→19:02)
[2017-03-30] MEDS: Insulin Regular 100 units/ml SC SCH ×4 (08:55→21:39)
--- NOTE | 2017-03-30 16:09 | CP.PCM.PN ---
Subjective - Date & Time of Evaluation Date of Evaluation: 03/30/17 Time of Evaluation: 13:00 - Subjective Subjective: F/U Acute CVA Awake, anwser questions slowly with few words , oriented x2 , follows commands Objective - Vital Signs/Intake and Output Vital Signs (last 24 hours): Temp Pulse Resp BP Pulse Ox 97.2 F L 74 20 120/70 99 03/30/17 15:49 03/30/17 15:49 03/30/17 15:49 03/30/17 15:49 03/30/17 15:49 Intake and Output: 03/30/17 03/30/17 06:59 18:59 Intake Total 1950 Output Total 1750 Balance 200 - Medications Medications: Current Medications Acetaminophen (Tylenol 325mg Tab) 650 mg PO Q4 PRN PRN Reason: Headache Last Admin: 03/28/17 17:09 Dose: 650 mg Albuterol/Ipratropium (Duoneb 3 Mg/0.5 Mg (3 Ml) Ud) 3 ml INH RTID [facility] Last Admin: 03/30/17 13:32 Dose: 3 ml Aspirin (Ecotrin) 81 mg PO DAILY [facility] Last Admin: 03/30/17 08:54 Dose: 81 mg Atorvastatin Calcium (Lipitor) 40 mg PO HS [facility] Last Admin: 03/29/17 21:41 Dose: 40 mg Carbidopa/Levodopa (Sinemet) 1 tab PO TID [facility] Last Admin: 03/30/17 12:04 Dose: 1 tab Dexamethasone (Decadron Inj) 4 mg IVP Q6 [facility] Last Admin: 03/30/17 09:06 Dose: 4 mg Finasteride (Proscar) 5 mg PO HS [facility] Last Admin: 03/29/17 21:41 Dose: 5 mg Ceftriaxone Sodium 1 gm/ (Sodium Chloride) 100 mls @ 100 mls/hr IVPB DAILY [facility] PRN Reason: Protocol Last Admin: 03/30/17 09:22 Dose: 100 mls/hr Insulin Human Regular (Humulin R) 0 units SC ACHS [facility] PRN Reason: Protocol Last Admin: 03/30/17 12:01 Dose: 6 units Mannitol (Mannitol) 20 gm IV 0400,1000,1600,2200 [facility] Last Admin: 03/30/17 09:07 Dose: 20 gm Metformin HCl (Glucophage) 500 mg PO BIDWM [facility] Last Admin: 03/30/17 08:54 Dose: 500 mg Metoprolol Tartrate (Lopressor) 50 mg PO Q12 [facility] Last Admin: 03/30/17 08:57 Dose: 50 mg Montelukast Sodium (Singulair) 10 mg PO HS [facility] Last Admin: 03/29/17 21:40 Dose: 10 mg Tamsulosin HCl (Flomax) 0.4 mg PO HS [facility] Last Admin: 03/29/17 21:41 Dose: 0.4 mg Valsartan (Diovan) 80 mg PO DAILY [facility] Last Admin: 03/30/17 08:53 Dose: 80 mg - Labs Labs: 03/29/17 04:34 03/29/17 04:34 PT 11.0 Seconds (9.8-13.1) 03/13/17 14:40 INR 1.0 (0.9-1.2) 03/13/17 14:40 APTT 22.0 Seconds (25.6-37.1) L 03/13/17 14:40 - Constitutional Appears: Chronically Ill - Head Exam Head Exam: NORMAL INSPECTION - Eye Exam Eye Exam: PERRL - ENT Exam ENT Exam: Normal Exam - Neck Exam Neck Exam: Normal Inspection - Respiratory Exam Respiratory Exam: Decreased Breath Sounds (at bases) - Cardiovascular Exam Cardiovascular Exam: REGULAR RHYTHM - GI/Abdominal Exam GI & Abdominal Exam: Soft, Normal Bowel Sounds - Extremities Exam Extremities Exam: Normal Inspection - Back Exam Back Exam: NORMAL INSPECTION - Neurological Exam Neurological Exam: Awake Additional comments: answer questions slowly , oriented x 2 , follows commands , L hemiparesia , limited movement LUE , increased movement LLE against gravity Assessment and Plan (1) Acute CVA (cerebrovascular accident) Status: Acute (2) Encephalopathy Status: Acute (3) Anxiety and depression Status: Chronic (4) Generalized weakness Status: Chronic (5) Dementia Status: Chronic (6) HTN (hypertension) Status: Chronic (7) COPD (chronic obstructive pulmonary disease) Status: Chronic (8) History of CVA (cerebrovascular accident) Status: Chronic (9) Headache Status: Resolved (10) History of laminectomy Status: Acute (11) Cardiac arrhythmia Status: Acute - Assessment and Plan (Free Text) Assessment: UTI Klebsiella Plan: on Decadron , Manitol, BP and BP control , UTI Klebsiella on Rocephin
--- NOTE | 2017-03-30 22:25 | CP.PCM.PN ---
Subjective - Date & Time of Evaluation Date of Evaluation: 03/30/17 Time of Evaluation: 22:15 - Subjective Subjective: No deterioration in his condition, he is able to talk and his telegraphic speech that followed the CVA has improved and is replaced by long sentences consisting of 4 to 5 words. He is oriented X 2, disoriented to date and year. His left side movements are kept in between 2 and 3 in both Left UE and Left LE. He is still on IV Mannitol 25%, 20 gm Q 6 Hrs and IV Decadron 4 mg Q 6 hrs. Serum Osmolality is not reported today. Normal VS. Klebsiella Pneumonia is detected in Urine Culture. Objective - Vital Signs/Intake and Output Vital Signs (last 24 hours): Temp Pulse Resp BP Pulse Ox 96.7 F L 76 20 132/81 100 03/30/17 20:40 03/30/17 21:31 03/30/17 20:40 03/30/17 21:31 03/30/17 20:40 Intake and Output: 03/30/17 03/31/17 18:59 06:59 Intake Total 1120 Balance 1120 - Medications Medications: Current Medications Albuterol/Ipratropium (Duoneb 3 Mg/0.5 Mg (3 Ml) Ud) 3 ml INH RTID [facility] Last Admin: 03/30/17 19:02 Dose: 3 ml Aspirin (Ecotrin) 81 mg PO DAILY [facility] Last Admin: 03/30/17 08:54 Dose: 81 mg Atorvastatin Calcium (Lipitor) 40 mg PO HS [facility] Last Admin: 03/30/17 21:30 Dose: 40 mg Carbidopa/Levodopa (Sinemet) 1 tab PO TID [facility] Last Admin: 03/30/17 17:05 Dose: 1 tab Dexamethasone (Decadron Inj) 4 mg IVP Q6 [facility] Last Admin: 03/30/17 21:21 Dose: 4 mg Finasteride (Proscar) 5 mg PO HS [facility] Last Admin: 03/29/17 21:41 Dose: 5 mg Ceftriaxone Sodium 1 gm/ (Sodium Chloride) 100 mls @ 100 mls/hr IVPB DAILY [facility] PRN Reason: Protocol Last Admin: 03/30/17 09:22 Dose: 100 mls/hr Insulin Human Regular (Humulin R) 0 units SC ACHS [facility] PRN Reason: Protocol Last Admin: 03/30/17 21:39 Dose: Not Given Mannitol (Mannitol) 20 gm IV 0400,1000,1600,2200 [facility] Last Admin: 03/30/17 21:24 Dose: 20 gm Metformin HCl (Glucophage) 500 mg PO BIDWM [facility] Last Admin: 03/30/17 16:59 Dose: 500 mg Metoprolol Tartrate (Lopressor) 50 mg PO Q12 [facility] Last Admin: 03/30/17 21:31 Dose: 50 mg Montelukast Sodium (Singulair) 10 mg PO HS [facility] Last Admin: 03/30/17 21:31 Dose: 10 mg Tamsulosin HCl (Flomax) 0.4 mg PO HS [facility] Last Admin: 03/30/17 21:31 Dose: 0.4 mg Valsartan (Diovan) 80 mg PO DAILY [facility] Last Admin: 03/30/17 08:53 Dose: 80 mg - Labs Labs: 03/29/17 04:34 03/29/17 04:34 PT 11.0 Seconds (9.8-13.1) 03/13/17 14:40 INR 1.0 (0.9-1.2) 03/13/17 14:40 APTT 22.0 Seconds (25.6-37.1) L 03/13/17 14:40 Assessment and Plan (1) Dizziness Status: Resolved (2) Headache Status: Resolved (3) Dementia Status: Chronic (4) Inability to walk Status: Chronic (5) BPH (benign prostatic hyperplasia) Status: Chronic (6) CVA (cerebral vascular accident) Status: Acute
[2017-03-31] MEDS: Mannitol 12.5 gm/50 ml Inj IV SCH ×4 (04:02→21:52)
[2017-03-31] MEDS: Dexamethasone 4 mg/1 ml IVP SCH ×4 (04:44→22:00)
[2017-03-31] MEDS: Albuterol-Ipratrop 3 mg / 0.5 (3 ml) UD INH SCH ×3 (07:15→19:05)
[2017-03-31] MEDS: Insulin Regular 100 units/ml SC SCH ×4 (08:43→22:01)
--- NOTE | 2017-03-31 16:00 | CP.PCM.PN ---
Subjective - Date & Time of Evaluation Date of Evaluation: 03/31/17 Time of Evaluation: 16:50 - Subjective Subjective: F/U Acute CVA Awake , answer questions slowly ,oriented x 2 , Patient's friend at bedside Objective - Vital Signs/Intake and Output Vital Signs (last 24 hours): Temp Pulse Resp BP Pulse Ox 97.5 F L 53 L 20 108/66 98 03/31/17 15:53 03/31/17 15:53 03/31/17 15:53 03/31/17 15:53 03/31/17 15:53 - Medications Medications: Current Medications Albuterol/Ipratropium (Duoneb 3 Mg/0.5 Mg (3 Ml) Ud) 3 ml INH RTID [facility] Last Admin: 03/31/17 13:45 Dose: 3 ml Aspirin (Ecotrin) 81 mg PO DAILY [facility] Last Admin: 03/31/17 08:42 Dose: 81 mg Atorvastatin Calcium (Lipitor) 40 mg PO HS [facility] Last Admin: 03/30/17 21:30 Dose: 40 mg Carbidopa/Levodopa (Sinemet) 1 tab PO TID [facility] Last Admin: 03/31/17 12:32 Dose: 1 tab Dexamethasone (Decadron Inj) 4 mg IVP Q6 [facility] Last Admin: 03/31/17 08:59 Dose: 4 mg Finasteride (Proscar) 5 mg PO HS [facility] Last Admin: 03/30/17 22:03 Dose: 5 mg Ceftriaxone Sodium 1 gm/ (Sodium Chloride) 100 mls @ 100 mls/hr IVPB DAILY [facility] PRN Reason: Protocol Last Admin: 03/31/17 08:45 Dose: 100 mls/hr Insulin Human Regular (Humulin R) 0 units SC ACHS [facility] PRN Reason: Protocol Last Admin: 03/31/17 12:30 Dose: 4 units Mannitol (Mannitol) 20 gm IV 0400,1000,1600,2200 [facility] Last Admin: 03/31/17 09:01 Dose: 20 gm Metformin HCl (Glucophage) 500 mg PO BIDWM [facility] Last Admin: 03/31/17 08:42 Dose: 500 mg Metoprolol Tartrate (Lopressor) 50 mg PO Q12 [facility] Last Admin: 03/31/17 08:42 Dose: 50 mg Montelukast Sodium (Singulair) 10 mg PO HS [facility] Last Admin: 03/30/17 21:31 Dose: 10 mg Tamsulosin HCl (Flomax) 0.4 mg PO HS [facility] Last Admin: 03/30/17 21:31 Dose: 0.4 mg Valsartan (Diovan) 80 mg PO DAILY [facility] Last Admin: 03/31/17 08:43 Dose: 80 mg - Labs Labs: 03/29/17 04:34 03/29/17 04:34 PT 11.0 Seconds (9.8-13.1) 03/13/17 14:40 INR 1.0 (0.9-1.2) 03/13/17 14:40 APTT 22.0 Seconds (25.6-37.1) L 03/13/17 14:40 - Constitutional Appears: Chronically Ill - Head Exam Head Exam: NORMAL INSPECTION - Eye Exam Eye Exam: PERRL - ENT Exam ENT Exam: Normal Oropharynx - Neck Exam Neck Exam: Normal Inspection - Respiratory Exam Respiratory Exam: Decreased Breath Sounds (at bases) - Cardiovascular Exam Cardiovascular Exam: REGULAR RHYTHM - GI/Abdominal Exam GI & Abdominal Exam: Soft, Normal Bowel Sounds - Extremities Exam Extremities Exam: Normal Inspection - Back Exam Back Exam: NORMAL INSPECTION - Neurological Exam Neurological Exam: Awake Additional comments: answer questions slowly, oriented x 2 , L hemiparesia U/E > L/E - Psychiatric Exam Additional comments: calm - Skin Skin Exam: Warm Assessment and Plan (1) Acute CVA (cerebrovascular accident) Status: Acute (2) Encephalopathy Status: Acute (3) Anxiety and depression Status: Chronic (4) Generalized weakness Status: Chronic (5) Dementia Status: Chronic (6) HTN (hypertension) Status: Chronic (7) COPD (chronic obstructive pulmonary disease) Status: Chronic (8) History of CVA (cerebrovascular accident) Status: Chronic (9) Headache Status: Resolved (10) History of laminectomy Status: Acute (11) Cardiac arrhythmia Status: Acute (12) UTI (urinary tract infection) Assessment & Plan: Klebsiella S to Rocephin Status: Acute - Assessment and Plan (Free Text) Plan: continue Decadron , Manitol , Rocephin , PT and rest of treatment
--- NOTE | 2017-03-31 21:50 | CP.PCM.PN ---
Subjective - Date & Time of Evaluation Date of Evaluation: 03/31/17 Time of Evaluation: 21:42 - Subjective Subjective: He is moving the Right side adequately with limitation of Left side movements in both Left UE and Left LE. His serum osmolality is 193, serum Glucose is better controlled by Insulin sliding scale. 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 He is talking better than before. He might be a candidate for acute Rehab after more care. She is on IV Mannitol 25%, 20 gm Q 6 hrs and IV Decadron 4 mg Q 6hrs Mildly low Na and Cl. Normal Serum Creatinine and Normal VS. Objective - Vital Signs/Intake and Output Vital Signs (last 24 hours): Temp Pulse Resp BP Pulse Ox 97.5 F L 53 L 20 108/66 98 03/31/17 15:53 03/31/17 15:53 03/31/17 15:53 03/31/17 15:53 03/31/17 15:53 Intake and Output: 03/31/17 04/01/17 18:59 06:59 Intake Total 1260 Output Total 960 Balance 300 - Medications Medications: Current Medications Albuterol/Ipratropium (Duoneb 3 Mg/0.5 Mg (3 Ml) Ud) 3 ml INH RTID [facility] Last Admin: 03/31/17 19:05 Dose: 3 ml Aspirin (Ecotrin) 81 mg PO DAILY [facility] Last Admin: 03/31/17 08:42 Dose: 81 mg Atorvastatin Calcium (Lipitor) 40 mg PO HS [facility] Last Admin: 03/30/17 21:30 Dose: 40 mg Carbidopa/Levodopa (Sinemet) 1 tab PO TID [facility] Last Admin: 03/31/17 16:14 Dose: 1 tab Dexamethasone (Decadron Inj) 4 mg IVP Q6 [facility] Last Admin: 03/31/17 16:12 Dose: 4 mg Finasteride (Proscar) 5 mg PO HS [facility] Last Admin: 03/30/17 22:03 Dose: 5 mg Ceftriaxone Sodium 1 gm/ (Sodium Chloride) 100 mls @ 100 mls/hr IVPB DAILY [facility] PRN Reason: Protocol Last Admin: 03/31/17 08:45 Dose: 100 mls/hr Insulin Human Regular (Humulin R) 0 units SC ACHS [facility] PRN Reason: Protocol Last Admin: 03/31/17 16:23 Dose: 2 units Mannitol (Mannitol) 20 gm IV 0400,1000,1600,2200 [facility] Last Admin: 03/31/17 16:13 Dose: 20 gm Metformin HCl (Glucophage) 500 mg PO BIDWM [facility] Last Admin: 03/31/17 16:13 Dose: 500 mg Metoprolol Tartrate (Lopressor) 50 mg PO Q12 [facility] Last Admin: 03/31/17 08:42 Dose: 50 mg Montelukast Sodium (Singulair) 10 mg PO HS [facility] Last Admin: 03/30/17 21:31 Dose: 10 mg Tamsulosin HCl (Flomax) 0.4 mg PO HS [facility] Last Admin: 03/30/17 21:31 Dose: 0.4 mg Valsartan (Diovan) 80 mg PO DAILY [facility] Last Admin: 03/31/17 08:43 Dose: 80 mg - Labs Labs: 03/29/17 04:34 03/29/17 04:34 PT 11.0 Seconds (9.8-13.1) 03/13/17 14:40 INR 1.0 (0.9-1.2) 03/13/17 14:40 APTT 22.0 Seconds (25.6-37.1) L 03/13/17 14:40 Assessment and Plan (1) Dizziness Status: Resolved (2) Headache Status: Resolved (3) Dementia Status: Chronic (4) Inability to walk Status: Chronic (5) BPH (benign prostatic hyperplasia) Status: Chronic (6) CVA (cerebral vascular accident) Status: Acute
[2017-04-01] MEDS: Dexamethasone 4 mg/1 ml IVP SCH ×4 (04:47→21:57)
[2017-04-01] MEDS: Mannitol 12.5 gm/50 ml Inj IV SCH ×4 (04:47→22:01)
[2017-04-01] MEDS: Insulin Regular 100 units/ml SC SCH ×4 (06:40→21:57)
--- NOTE | 2017-04-01 06:44 | PQF GENQUE ---
This form is a permanent part of the medical record 04/01/17 Dr. Dahl, A cause and effect relationship may not be assumed and must be documented by a provider. Please clarify the relationship, if any, between the Ayala Catheter and the UTI Are the conditions: Due to or associated with each other Unrelated to each other Clinically unable to determine Unknown Admitted with chest pain and lightheadedness. UA on admission negative. UA on 03/28/17 + nitrates, leukocyte esterase, wbc and bacteria. Urine CS: Klebsiella Pneumoniae. WBC 15.1. Ayala catheter inserted 03/17/17. Clarification of your documentation is requested to better reflect the severity of illness and intensity of treatment of your patient. Indicators present [] Specify: [] [] Specify: [] [] Specify: [] [] Specify: [] Location in the medical record that reflects the above clinical findings: [] Treatment Provided: [] PHYSICIAN'S RESPONSE Based on your medical judgment of the clinical indicators outlined above please clarify the following: [] Practitioner response [] If unable to determine, please check the box, sign and date. Present On Admission (POA) Indicator: [] Present at the time of admission [] Not present at the time of admission [] Clinically Undetermined In responding to this query, please exercise your independent professional judgment. The fact that a question is asked does not imply that any particular answer is desired or expected. Thank you for your clarification on this documentation. If you have any questions please call:ext [phone] * Thank you, Ying Guillory RN [facility]
[2017-04-01] MEDS: Albuterol-Ipratrop 3 mg / 0.5 (3 ml) UD INH SCH ×3 (07:36→19:05)
[2017-04-01 09:39] LABS: BLOOD UREA NITROGEN 27 mg/dl (9-20); CALCIUM 7.8 mg/dL (8.4-10.2); GFR AFRICAN-AMERICAN > 60; GFR NON-AFRICAN AMERICAN > 60
[2017-04-01 10:24] LABS: HEMOGLOBIN 12.6 g/dL (12.0-18.0); MEAN CELL VOLUME 91.2 fl (80.0-94.0); MEAN CORPUSCULAR HEMOGLOBIN 29.8 pg (27.0-31.0); MEAN CORPUSCULAR HGB CONC 32.7 g/dL (33.0-37.0); RBC 4.24 Mil/uL (4.40-5.90); WHITE BLOOD COUNT 13.8 K/uL (4.8-10.8)
--- NOTE | 2017-04-01 13:51 | CARD ---
APPROVED REPORT EKG Measurement Heart [id number] [place] [id number] <Conclusion> Normal sinus rhythm ST & T wave abnormality, consider lateral ischemia Abnormal ECG
--- NOTE | 2017-04-01 14:52 | CP.PCM.PN ---
Subjective - Date & Time of Evaluation Date of Evaluation: 04/01/17 Time of Evaluation: 11:30 - Subjective Subjective: F/U Acute CVA awake , answer questions slowly, oriented x 2 Objective - Vital Signs/Intake and Output Vital Signs (last 24 hours): Temp Pulse Resp BP Pulse Ox 97.5 F L 82 18 144/72 99 04/01/17 05:08 04/01/17 09:14 04/01/17 05:08 04/01/17 09:14 04/01/17 05:08 Intake and Output: 04/01/17 04/01/17 06:59 18:59 Intake Total 280 Output Total 1250 Balance -970 - Medications Medications: Current Medications Albuterol/Ipratropium (Duoneb 3 Mg/0.5 Mg (3 Ml) Ud) 3 ml INH RTID [facility] Last Admin: 04/01/17 13:03 Dose: 3 ml Aspirin (Ecotrin) 81 mg PO DAILY [facility] Last Admin: 04/01/17 08:51 Dose: 81 mg Atorvastatin Calcium (Lipitor) 40 mg PO HS [facility] Last Admin: 03/31/17 22:01 Dose: 40 mg Carbidopa/Levodopa (Sinemet) 1 tab PO TID [facility] Last Admin: 04/01/17 12:46 Dose: 1 tab Dexamethasone (Decadron Inj) 4 mg IVP Q6 [facility] Last Admin: 04/01/17 09:16 Dose: 4 mg Finasteride (Proscar) 5 mg PO HS [facility] Last Admin: 03/31/17 22:00 Dose: 5 mg Ceftriaxone Sodium 1 gm/ (Sodium Chloride) 100 mls @ 100 mls/hr IVPB DAILY [facility] PRN Reason: Protocol Last Admin: 04/01/17 08:52 Dose: 100 mls/hr Insulin Human Regular (Humulin R) 0 units SC ACHS [facility] PRN Reason: Protocol Last Admin: 04/01/17 12:46 Dose: 3 units Mannitol (Mannitol) 20 gm IV 0400,1000,1600,2200 [facility] Last Admin: 04/01/17 09:15 Dose: 20 gm Metformin HCl (Glucophage) 500 mg PO BIDWM [facility] Last Admin: 04/01/17 08:51 Dose: 500 mg Metoprolol Tartrate (Lopressor) 50 mg PO Q12 [facility] Last Admin: 04/01/17 09:14 Dose: 50 mg Montelukast Sodium (Singulair) 10 mg PO HS [facility] Last Admin: 03/31/17 21:59 Dose: 10 mg Tamsulosin HCl (Flomax) 0.4 mg PO [facility] Last Admin: 03/31/17 22:01 Dose: 0.4 mg Valsartan (Diovan) 80 mg PO DAILY [facility] Last Admin: 04/01/17 08:51 Dose: 80 mg - Labs Labs: 04/01/17 10:18 04/01/17 09:13 PT 11.0 Seconds (9.8-13.1) 03/13/17 14:40 INR 1.0 (0.9-1.2) 03/13/17 14:40 APTT 22.0 Seconds (25.6-37.1) L 03/13/17 14:40 - Constitutional Appears: Chronically Ill - Head Exam Head Exam: NORMAL INSPECTION - Eye Exam Eye Exam: PERRL - ENT Exam ENT Exam: Normal Oropharynx - Neck Exam Neck Exam: Normal Inspection - Respiratory Exam Respiratory Exam: Decreased Breath Sounds (at bases) - Cardiovascular Exam Cardiovascular Exam: REGULAR RHYTHM - GI/Abdominal Exam GI & Abdominal Exam: Soft, Normal Bowel Sounds - Extremities Exam Extremities Exam: Normal Inspection - Back Exam Back Exam: NORMAL INSPECTION - Neurological Exam Neurological Exam: Awake Additional comments: Answer questions slowly, Ox2, L hemparesia U/E, L/E - Psychiatric Exam Psychiatric exam: Flat Affect - Skin Skin Exam: Warm Assessment and Plan (1) Acute CVA (cerebrovascular accident) Status: Acute (2) Encephalopathy Status: Acute (3) Anxiety and depression Status: Chronic (4) Generalized weakness Status: Chronic (5) Dementia Status: Chronic (6) HTN (hypertension) Status: Chronic (7) COPD (chronic obstructive pulmonary disease) Status: Chronic (8) History of CVA (cerebrovascular accident) Status: Chronic (9) Headache Status: Resolved (10) History of laminectomy Status: Acute (11) Cardiac arrhythmia Status: Acute (12) UTI (urinary tract infection) Assessment & Plan: Klebsiella, UTI catheter related Status: Acute - Assessment and Plan (Free Text) Plan: had short run of wide complex tachycardia , EKG RSR , prolonged QT , Cardiology notified , Patient still unstable as per [facility] Therapy , continue Rocephin , Manitol , Decadron , Diovan , Lopressor , DC Ayala
--- NOTE | 2017-04-01 22:56 | CP.PCM.PN ---
Subjective - Date & Time of Evaluation Date of Evaluation: 04/01/17 Time of Evaluation: 22:48 - Subjective Subjective: He is moving the right side normally and has weakness on the Left side in Left UE and Left LE. He is delirious and has fluctuation of mood and speech and his orientation. At times he is oriented X 3. He is doing better and is on IV Mannitol 25 % 20 gm Q 6 hrs and Decadron 4 mg Q 6 hrs.Level of Glucose is controlled and his VS are Normal. Today is his 87th birthday. His 2 daughters visited him before going back to [place]. Oriented X 3 and thinks we are in [place], [place] knows it is [place]. Knows we are in 2018 and knows that [place] is the President. His left side movements are fluctuating, at times they are 3/5 in UE and 4/ 5 in LE, and at times there are less than that. He knows his daughters were here to see him. Objective - Vital Signs/Intake and Output Vital Signs (last 24 hours): Temp Pulse Resp BP Pulse Ox 97.3 F L 73 18 127/73 98 04/01/17 20:21 04/01/17 21:57 04/01/17 20:21 04/01/17 21:57 04/01/17 20:21 Intake and Output: 04/01/17 04/02/17 18:59 06:59 Intake Total 940 Output Total 650 Balance 290 - Medications Medications: Current Medications Albuterol/Ipratropium (Duoneb 3 Mg/0.5 Mg (3 Ml) Ud) 3 ml INH RTID [facility] Last Admin: 04/01/17 19:05 Dose: 3 ml Aspirin (Ecotrin) 81 mg PO DAILY [facility] Last Admin: 04/01/17 08:51 Dose: 81 mg Atorvastatin Calcium (Lipitor) 40 mg PO HS [facility] Last Admin: 04/01/17 21:57 Dose: 40 mg Carbidopa/Levodopa (Sinemet) 1 tab PO TID [facility] Last Admin: 04/01/17 17:01 Dose: 1 tab Dexamethasone (Decadron Inj) 4 mg IVP Q6 [facility] Last Admin: 04/01/17 21:57 Dose: 4 mg Finasteride (Proscar) 5 mg PO HS [facility] Last Admin: 04/01/17 21:56 Dose: 5 mg Ceftriaxone Sodium 1 gm/ (Sodium Chloride) 100 mls @ 100 mls/hr IVPB DAILY [facility] PRN Reason: Protocol Last Admin: 04/01/17 08:52 Dose: 100 mls/hr Insulin Human Regular (Humulin R) 0 units SC ACHS [facility] PRN Reason: Protocol Last Admin: 04/01/17 21:57 Dose: Not Given Mannitol (Mannitol) 20 gm IV 0400,1000,1600,2200 [facility] Last Admin: 04/01/17 22:01 Dose: 20 gm Metformin HCl (Glucophage) 500 mg PO BIDWM [facility] Last Admin: 04/01/17 17:01 Dose: 500 mg Metoprolol Tartrate (Lopressor) 50 mg PO Q12 [facility] Last Admin: 04/01/17 21:57 Dose: 50 mg Montelukast Sodium (Singulair) 10 mg PO HS [facility] Last Admin: 04/01/17 21:56 Dose: 10 mg Tamsulosin HCl (Flomax) 0.4 mg PO HS [facility] Last Admin: 04/01/17 21:57 Dose: 0.4 mg Valsartan (Diovan) 80 mg PO DAILY [facility] Last Admin: 04/01/17 08:51 Dose: 80 mg - Labs Labs: 04/01/17 10:18 04/01/17 09:13 PT 11.0 Seconds (9.8-13.1) 03/13/17 14:40 INR 1.0 (0.9-1.2) 03/13/17 14:40 APTT 22.0 Seconds (25.6-37.1) L 03/13/17 14:40 Assessment and Plan (1) Dizziness Status: Resolved (2) Headache Status: Resolved (3) Dementia Status: Chronic (4) Inability to walk Status: Chronic (5) BPH (benign prostatic hyperplasia) Status: Chronic (6) CVA (cerebral vascular accident) Status: Acute
[2017-04-02] MEDS: Dexamethasone 4 mg/1 ml IVP SCH ×4 (03:31→21:35)
[2017-04-02] MEDS: Mannitol 12.5 gm/50 ml Inj IV SCH ×4 (03:32→22:04)
--- NOTE | 2017-04-02 06:20 | PQF GENQUE ---
This form is a permanent part of the medical record 03/27/17 Dr. Dahl, Please provide the underlying diagnosis causing the patient's documented symptom of chest pain. Admitted with chest pain, headache and lightheadedness for the last 2 days [employer]. EKG NSR with first degree AV Block, ST T wave abnormality, consider lateral ischemia, prolonged QT. Troponin x [address] head on admission: No intracranial mass, hemorrhage or evidence of acute infarct. Age related atrophy with chronic white matter ischemic change in bilateral basal ganglia lacunar infarcts. Clarification of your documentation is requested to better reflect the severity of illness and intensity of treatment of your patient. Indicators present [] Specify: [] [] Specify: [] [] Specify: [] [] Specify: [] Location in the medical record that reflects the above clinical findings: [] Treatment Provided: [] PHYSICIAN'S RESPONSE Based on your medical judgment of the clinical indicators outlined above please clarify the following: [] Practitioner response [] If unable to determine, please check the box, sign and date. Present On Admission (POA) Indicator: [] Present at the time of admission [] Not present at the time of admission [] Clinically Undetermined In responding to this query, please exercise your independent professional judgment. The fact that a question is asked does not imply that any particular answer is desired or expected. Thank you for your clarification on this documentation. If you have any questions please call:[phone] * Thank you, Ying Guillory RN [facility]
[2017-04-02] MEDS: Insulin Regular 100 units/ml SC SCH ×4 (06:49→21:39)
[2017-04-02] MEDS: Albuterol-Ipratrop 3 mg / 0.5 (3 ml) UD INH SCH ×3 (07:20→19:38)
--- NOTE | 2017-04-02 12:13 | CP.PCM.PN ---
Subjective - Date & Time of Evaluation Date of Evaluation: 04/02/17 Time of Evaluation: 09:00 - Subjective Subjective: Was called by the nurse yesterday afternoon to report a brief burst of broad complex tachycardia which spontaneously resolved A f/u EKG showed QTc at upper limits of normal, electrolytes were normal Vital signs remained normal Review of the tracing shows irregular rhythm suggestive of A Fib with aberrancy (similar episode occurred on 03/16 as well) in pt's present state no intervention is needed at this juncture Pt hemodynamically stable Objective - Vital Signs/Intake and Output Vital Signs (last 24 hours): Temp Pulse Resp BP Pulse Ox 97.3 F L 72 20 167/80 H 97 04/02/17 08:00 04/02/17 10:30 04/02/17 08:00 04/02/17 10:30 04/02/17 08:00 Intake and Output: 04/02/17 04/02/17 06:59 18:59 Intake Total 280 Output Total 700 Balance -420 - Medications Medications: Current Medications Albuterol/Ipratropium (Duoneb 3 Mg/0.5 Mg (3 Ml) Ud) 3 ml INH RTID [facility] Last Admin: 04/02/17 07:20 Dose: 3 ml Aspirin (Aspirin) 325 mg PO DAILY [facility] Atorvastatin Calcium (Lipitor) 40 mg PO HS [facility] Last Admin: 04/01/17 21:57 Dose: 40 mg Carbidopa/Levodopa (Sinemet) 1 tab PO TID [facility] Last Admin: 04/02/17 10:30 Dose: 1 tab Dexamethasone (Decadron Inj) 4 mg IVP Q6 [facility] Last Admin: 04/02/17 10:35 Dose: 4 mg Finasteride (Proscar) 5 mg PO HS [facility] Last Admin: 04/01/17 21:56 Dose: 5 mg Ceftriaxone Sodium 1 gm/ (Sodium Chloride) 100 mls @ 100 mls/hr IVPB DAILY [facility] PRN Reason: Protocol Last Admin: 04/02/17 10:29 Dose: 100 mls/hr Insulin Human Regular (Humulin R) 0 units SC ACHS [facility] PRN Reason: Protocol Last Admin: 04/02/17 06:49 Dose: 2 units Mannitol (Mannitol) 20 gm IV 0400,1000,1600,2200 [facility] Last Admin: 04/02/17 10:33 Dose: 20 gm Metformin HCl (Glucophage) 500 mg PO BIDWM [facility] Last Admin: 04/02/17 08:34 Dose: 500 mg Metoprolol Tartrate (Lopressor) 50 mg PO Q12 [facility] Last Admin: 04/02/17 10:30 Dose: 50 mg Montelukast Sodium (Singulair) 10 mg PO HS [facility] Last Admin: 04/01/17 21:56 Dose: 10 mg Tamsulosin HCl (Flomax) 0.4 mg PO HS [facility] Last Admin: 04/01/17 21:57 Dose: 0.4 mg Valsartan (Diovan) 80 mg PO DAILY [facility] Last Admin: 04/02/17 10:36 Dose: 80 mg - Labs Labs: 04/01/17 10:18 04/01/17 09:13 PT 11.0 Seconds (9.8-13.1) 03/13/17 14:40 INR 1.0 (0.9-1.2) 03/13/17 14:40 APTT 22.0 Seconds (25.6-37.1) L 03/13/17 14:40
--- NOTE | 2017-04-02 15:37 | CP.PCM.PN ---
Subjective - Date & Time of Evaluation Date of Evaluation: 04/02/17 Time of Evaluation: 11:20 - Subjective Subjective: F/U Acute CVA awake , oriented x 2, answer questions slowly Objective - Vital Signs/Intake and Output Vital Signs (last 24 hours): Temp Pulse Resp BP Pulse Ox 97.6 F 65 20 112/65 98 04/02/17 12:00 04/02/17 12:00 04/02/17 12:00 04/02/17 12:00 04/02/17 12:00 Intake and Output: 04/02/17 04/02/17 06:59 18:59 Intake Total 280 Output Total 700 Balance -420 - Medications Medications: Current Medications Albuterol/Ipratropium (Duoneb 3 Mg/0.5 Mg (3 Ml) Ud) [address] [facility] Last Admin: 04/02/17 13:09 Dose: 3 ml Aspirin (Aspirin) [address] [facility] Atorvastatin Calcium (Lipitor) [address] [facility] Last Admin: 04/01/17 21:57 Dose: 40 mg Carbidopa/Levodopa (Sinemet) [address] [facility] Last Admin: 04/02/17 13:04 Dose: 1 tab Dexamethasone (Decadron Inj) [address] [facility] Last Admin: 04/02/17 10:35 Dose: 4 mg Finasteride (Proscar) [address] [facility] Last Admin: 04/01/17 21:56 Dose: 5 mg Ceftriaxone Sodium 1 gm/ (Sodium Chloride) 100 mls @ 100 mls/hr IVPB DAILY [facility] PRN Reason: Protocol Last Admin: 04/02/17 10:29 Dose: 100 mls/hr Insulin Human Regular (Humulin R) [address] [facility] PRN Reason: Protocol Last Admin: 04/02/17 13:04 Dose: 3 units Mannitol (Mannitol) 20 gm IV 0400,1000,1600,2200 [facility] Last Admin: 04/02/17 10:33 Dose: 20 gm Metformin HCl (Glucophage) [address] [facility] Last Admin: 04/02/17 08:34 Dose: 500 mg Metoprolol Tartrate (Lopressor) [address] [facility] Last Admin: 04/02/17 10:30 Dose: 50 mg Montelukast Sodium (Singulair) [address] [facility] Last Admin: 04/01/17 21:56 Dose: 10 mg Tamsulosin HCl (Flomax) 0.[address] [facility] Last Admin: 04/01/17 21:57 Dose: 0.4 mg Valsartan (Diovan) [address] [facility] Last Admin: 04/02/17 10:36 Dose: 80 mg - Labs Labs: 04/01/17 10:18 04/01/17 09:13 PT 11.0 Seconds (9.8-13.1) 03/13/17 14:40 INR 1.0 (0.9-1.2) 03/13/17 14:40 APTT 22.0 Seconds (25.6-37.1) L 03/13/17 14:40 - Constitutional Appears: Chronically Ill - Head Exam Head Exam: NORMAL INSPECTION - Eye Exam Eye Exam: PERRL - ENT Exam ENT Exam: Normal Oropharynx - Neck Exam Neck Exam: Normal Inspection - Respiratory Exam Respiratory Exam: Decreased Breath Sounds (at bases) - Cardiovascular Exam Cardiovascular Exam: REGULAR RHYTHM - GI/Abdominal Exam GI & Abdominal Exam: Soft, Normal Bowel Sounds - Extremities Exam Extremities Exam: Normal Inspection - Back Exam Back Exam: NORMAL INSPECTION - Neurological Exam Neurological Exam: Awake Additional comments: Answer questions slowly, oriented x 2 , L hemiparesia U/E > L E - Psychiatric Exam Psychiatric exam: Flat Affect - Skin Skin Exam: Warm Assessment and Plan (1) Acute CVA (cerebrovascular accident) Status: Acute (2) Encephalopathy Status: Acute (3) Anxiety and depression Status: Chronic (4) Generalized weakness Status: Chronic (5) Dementia Status: Chronic (6) HTN (hypertension) Status: Chronic (7) COPD (chronic obstructive pulmonary disease) Status: Chronic (8) History of CVA (cerebrovascular accident) Status: Chronic (9) Headache Status: Resolved (10) History of laminectomy Status: Acute (11) Cardiac arrhythmia Status: Acute (12) UTI (urinary tract infection) Status: Acute - Assessment and Plan (Free Text) Plan: Cardiology f/u appreciated AFib with aberrancy , no Cardiology intervension needed , continue Decadron, Manitol ,Diovan, Lopressor , Diovan , Duoneb, Glucophage , Physical Therapy, Patient' family is appealing decision not to transfer patient to Acute rehab.
--- NOTE | 2017-04-03 00:01 | CP.PCM.PN ---
Subjective - Date & Time of Evaluation Date of Evaluation: 04/02/17 Time of Evaluation: 22:20 - Subjective Subjective: Serum Osmolality is 300 today, there is better activity in his left side muscles. We are trying to adjust his condition in order to meet the criteria of Acute Rehab. Awake, alert. oriented X 3 most of the time. Objective - Vital Signs/Intake and Output Vital Signs (last 24 hours): Temp Pulse Resp BP Pulse Ox 98.6 F 75 17 151/71 H 98 04/02/17 19:56 04/02/17 21:37 04/02/17 19:56 04/02/17 21:37 04/02/17 19:56 Intake and Output: 04/02/17 04/03/17 18:59 06:59 Intake Total 280 Output Total 700 Balance -420 - Medications Medications: Current Medications Acetaminophen (Tylenol 325mg Tab) 650 mg PO Q6 PRN PRN Reason: Pain, Mild (1-3) Last Admin: 04/02/17 18:00 Dose: 650 mg Albuterol/Ipratropium (Duoneb 3 Mg/0.5 Mg (3 Ml) Ud) 3 ml INH RTID [facility] Last Admin: 04/02/17 19:38 Dose: 3 ml Aspirin (Aspirin) 325 mg PO DAILY [facility] Atorvastatin Calcium (Lipitor) 40 mg PO HS [facility] Last Admin: 04/02/17 21:36 Dose: 40 mg Carbidopa/Levodopa (Sinemet) 1 tab PO TID [facility] Last Admin: 04/02/17 18:00 Dose: 1 tab Dexamethasone (Decadron Inj) 4 mg IVP Q6 [facility] Last Admin: 04/02/17 21:35 Dose: 4 mg Finasteride (Proscar) 5 mg PO HS [facility] Last Admin: 04/02/17 21:38 Dose: 5 mg Ceftriaxone Sodium 1 gm/ (Sodium Chloride) 100 mls @ 100 mls/hr IVPB DAILY [facility] PRN Reason: Protocol Last Admin: 04/02/17 10:29 Dose: 100 mls/hr Insulin Human Regular (Humulin R) 0 units SC ACHS [facility] PRN Reason: Protocol Last Admin: 04/02/17 21:39 Dose: Not Given Mannitol (Mannitol) 20 gm IV 0400,1000,1600,2200 [facility] Last Admin: 04/02/17 22:04 Dose: 20 gm Metformin HCl (Glucophage) 500 mg PO BIDWM [facility] Last Admin: 04/02/17 18:00 Dose: 500 mg Metoprolol Tartrate (Lopressor) 50 mg PO Q12 [facility] Last Admin: 04/02/17 21:37 Dose: 50 mg Montelukast Sodium (Singulair) 10 mg PO HS [facility] Last Admin: 04/02/17 21:37 Dose: 10 mg Tamsulosin HCl (Flomax) 0.4 mg PO HS [facility] Last Admin: 04/02/17 21:36 Dose: 0.4 mg Valsartan (Diovan) 80 mg PO DAILY [facility] Last Admin: 04/02/17 10:36 Dose: 80 mg - Labs Labs: 04/01/17 10:18 04/01/17 09:13 PT 11.0 Seconds (9.8-13.1) 03/13/17 14:40 INR 1.0 (0.9-1.2) 03/13/17 14:40 APTT 22.0 Seconds (25.6-37.1) L 03/13/17 14:40 Assessment and Plan (1) Dizziness Status: Resolved (2) Headache Status: Resolved (3) Dementia Status: Chronic (4) Inability to walk Status: Chronic (5) BPH (benign prostatic hyperplasia) Status: Chronic (6) CVA (cerebral vascular accident) Status: Acute
[2017-04-03] MEDS: Mannitol 12.5 gm/50 ml Inj IV SCH ×4 (04:58→21:31)
[2017-04-03] MEDS: Dexamethasone 4 mg/1 ml IVP SCH ×4 (04:59→21:12)
[2017-04-03] MEDS: Insulin Regular 100 units/ml SC SCH ×4 (08:15→21:34)
[2017-04-03] MEDS: Albuterol-Ipratrop 3 mg / 0.5 (3 ml) UD INH SCH ×3 (08:24→19:42)
--- NOTE | 2017-04-03 14:33 | CP.PCM.PN ---
Subjective - Date & Time of Evaluation Date of Evaluation: 04/03/17 Time of Evaluation: 09:20 - Subjective Subjective: F/U Acute CVA Awake , smiling , answer questions , oriented x 3 , follows commands Objective - Vital Signs/Intake and Output Vital Signs (last 24 hours): Temp Pulse Resp BP Pulse Ox 97.4 F L 71 18 124/70 97 04/03/17 13:00 04/03/17 13:00 04/03/17 13:00 04/03/17 13:00 04/03/17 13:00 - Medications Medications: Current Medications Acetaminophen (Tylenol 325mg Tab) 650 mg PO Q6 PRN PRN Reason: Pain, Mild (1-3) Last Admin: 04/03/17 12:15 Dose: 650 mg Albuterol/Ipratropium (Duoneb 3 Mg/0.5 Mg (3 Ml) Ud) 3 ml INH RTID ON [facility] OF [facility] Last Admin: 04/03/17 13:41 Dose: 3 ml Aspirin (Aspirin) 325 mg PO DAILY [facility] Last Admin: 04/03/17 09:25 Dose: 325 mg Atorvastatin Calcium (Lipitor) 40 mg PO HS [facility] Last Admin: 04/02/17 21:36 Dose: 40 mg Carbidopa/Levodopa (Sinemet) 1 tab PO TID ON [facility] OF [facility] Last Admin: 04/03/17 09:21 Dose: 1 tab Dexamethasone (Decadron Inj) 4 mg IVP Q6 [facility] Last Admin: 04/03/17 09:47 Dose: 4 mg Finasteride (Proscar) 5 mg PO HS [facility] Last Admin: 04/02/17 21:38 Dose: 5 mg Ceftriaxone Sodium 1 gm/ (Sodium Chloride) 100 mls @ 100 mls/hr IVPB DAILY [facility] PRN Reason: Protocol Last Admin: 04/03/17 09:39 Dose: 100 mls/hr Insulin Human Regular (Humulin R) 0 units SC ACHS ON [facility] PRN Reason: Protocol Last Admin: 04/03/17 12:08 Dose: 3 units Mannitol (Mannitol) 20 gm IV 0400,1000,1600,2200 [facility] Last Admin: 04/03/17 11:07 Dose: 20 gm Metformin HCl (Glucophage) 500 mg PO BIDWM ON [facility] Last Admin: 04/03/17 08:46 Dose: 500 mg Metoprolol Tartrate (Lopressor) 50 mg PO Q12 [facility] Last Admin: 04/03/17 10:10 Dose: 50 mg Montelukast Sodium (Singulair) 10 mg PO HS [facility] Last Admin: 04/02/17 21:37 Dose: 10 mg Tamsulosin HCl (Flomax) 0.4 mg PO HS [facility] Last Admin: 04/02/17 21:36 Dose: 0.4 mg Valsartan (Diovan) 80 mg PO DAILY [facility] Last Admin: 04/03/17 09:46 Dose: 80 mg - Labs Labs: 04/01/17 10:18 04/01/17 09:13 PT 11.0 Seconds (9.8-13.1) 03/13/17 14:40 INR 1.0 (0.9-1.2) 03/13/17 14:40 APTT 22.0 Seconds (25.6-37.1) L 03/13/17 14:40 - Constitutional Appears: Chronically Ill - Head Exam Head Exam: NORMAL INSPECTION - Eye Exam Eye Exam: PERRL - ENT Exam ENT Exam: Normal Exam - Neck Exam Neck Exam: Normal Inspection - Respiratory Exam Respiratory Exam: Decreased Breath Sounds (at bases) - Cardiovascular Exam Cardiovascular Exam: REGULAR RHYTHM - GI/Abdominal Exam GI & Abdominal Exam: Soft, Normal Bowel Sounds - Extremities Exam Extremities Exam: Normal Inspection - Back Exam Back Exam: NORMAL INSPECTION - Neurological Exam Neurological Exam: Awake Additional comments: Answer questions slowly, O x 3, follows commands , L hemiparesia U/E > L/E - Psychiatric Exam Psychiatric exam: Flat Affect - Skin Skin Exam: Warm Assessment and Plan (1) Acute CVA (cerebrovascular accident) Status: Acute (2) Encephalopathy Status: Acute (3) Anxiety and depression Status: Chronic (4) Generalized weakness Status: Chronic (5) Dementia Status: Chronic (6) HTN (hypertension) Status: Chronic (7) COPD (chronic obstructive pulmonary disease) Status: Chronic (8) History of CVA (cerebrovascular accident) Status: Chronic (9) Headache Status: Resolved (10) History of laminectomy Status: Acute (11) Cardiac arrhythmia Status: Acute (12) UTI (urinary tract infection) Status: Acute - Assessment and Plan (Free Text) Plan: Rocephin Sal , Neurologist planning gradually decrease Manitol, Decadron , continue PT
--- NOTE | 2017-04-03 19:46 | CP.PCM.PN ---
Subjective - Date & Time of Evaluation Date of Evaluation: 04/03/17 Time of Evaluation: 19:37 - Subjective Subjective: He is doing better, more interactive, awake alert, Oriented X 3 on and off ' Weakness is noted on the Left side including the Left UE and the Left LE at a level of 3/5 His EEG is to be performed. Serum Osmolality is 288 Serum Glucose is in between 172 and 210. We will try tapering his IV Mannitol and IV Decadron over the weekend in order to be transferred to an appropriate Rehab facility. It will be better if he qualifies to an Acute Rehab rather than a Subacute Rehab as the family is opposed to a Sub acute Rehab. VS are normal. Objective - Vital Signs/Intake and Output Vital Signs (last 24 hours): Temp Pulse Resp BP Pulse Ox 97.7 F 73 14 108/70 98 04/03/17 16:27 04/03/17 16:27 04/03/17 16:27 04/03/17 16:27 04/03/17 16:27 Intake and Output: 04/03/17 04/04/17 18:59 06:59 Intake Total 1140 Output Total 0 Balance 1140 - Medications Medications: Current Medications Acetaminophen (Tylenol 325mg Tab) 650 mg PO Q6 PRN PRN Reason: Pain, Mild (1-3) Last Admin: 04/03/17 18:55 Dose: 650 mg Albuterol/Ipratropium (Duoneb 3 Mg/0.5 Mg (3 Ml) Ud) 3 ml INH RTID [facility] Last Admin: 04/03/17 13:41 Dose: 3 ml Aspirin (Aspirin) 325 mg PO DAILY [facility] Last Admin: 04/03/17 09:25 Dose: 325 mg Atorvastatin Calcium (Lipitor) 40 mg PO HS [facility] Last Admin: 04/02/17 21:36 Dose: 40 mg Carbidopa/Levodopa (Sinemet) 1 tab PO TID [facility] Last Admin: 04/03/17 19:00 Dose: 1 tab Dexamethasone (Decadron Inj) 4 mg IVP Q6 [facility] Last Admin: 04/03/17 17:05 Dose: 4 mg Finasteride (Proscar) 5 mg PO HS [facility] Last Admin: 04/02/17 21:38 Dose: 5 mg Ceftriaxone Sodium 1 gm/ (Sodium Chloride) 100 mls @ 100 mls/hr IVPB DAILY [facility] PRN Reason: Protocol Last Admin: 04/03/17 09:39 Dose: 100 mls/hr Insulin Human Regular (Humulin R) 0 units SC ACHS [facility] PRN Reason: Protocol Last Admin: 04/03/17 16:57 Dose: 3 units Mannitol (Mannitol) 20 gm IV 0400,1000,1600,2200 [facility] Last Admin: 04/03/17 17:15 Dose: 20 gm Metformin HCl (Glucophage) 500 mg PO BIDWM [facility] Last Admin: 04/03/17 16:51 Dose: 500 mg Metoprolol Tartrate (Lopressor) 50 mg PO Q12 [facility] Last Admin: 04/03/17 10:10 Dose: 50 mg Montelukast Sodium (Singulair) 10 mg PO HS [facility] Last Admin: 04/02/17 21:37 Dose: 10 mg Tamsulosin HCl (Flomax) 0.4 mg PO HS [facility] Last Admin: 04/02/17 21:36 Dose: 0.4 mg Valsartan (Diovan) 80 mg PO DAILY [facility] Last Admin: 04/03/17 09:46 Dose: 80 mg - Labs Labs: 04/01/17 10:18 04/01/17 09:13 PT 11.0 Seconds (9.8-13.1) 03/13/17 14:40 INR 1.0 (0.9-1.2) 03/13/17 14:40 APTT 22.0 Seconds (25.6-37.1) L 03/13/17 14:40 Assessment and Plan (1) Dizziness Status: Resolved (2) Headache Status: Resolved (3) Dementia Status: Chronic (4) Inability to walk Status: Chronic (5) BPH (benign prostatic hyperplasia) Status: Chronic (6) CVA (cerebral vascular accident) Status: Acute
[2017-04-04] MEDS: Dexamethasone 4 mg/1 ml IVP SCH ×4 (05:11→21:35)
[2017-04-04] MEDS: Mannitol 12.5 gm/50 ml Inj IV SCH ×4 (05:12→21:55)
[2017-04-04] MEDS: Albuterol-Ipratrop 3 mg / 0.5 (3 ml) UD INH SCH ×3 (07:59→20:02)
[2017-04-04] MEDS: Insulin Regular 100 units/ml SC SCH ×4 (09:12→21:38)
--- NOTE | 2017-04-04 19:00 | CP.PCM.PN ---
Subjective - Date & Time of Evaluation Date of Evaluation: 04/04/17 Time of Evaluation: 10:40 - Subjective Subjective: F/U Acute CVA AOx3 , follows commands Objective - Vital Signs/Intake and Output Vital Signs (last 24 hours): Temp Pulse Resp BP Pulse Ox 97.3 F L 77 16 113/68 98 04/04/17 16:58 04/04/17 16:58 04/04/17 16:58 04/04/17 16:58 04/04/17 16:58 - Medications Medications: Current Medications Acetaminophen (Tylenol 325mg Tab) 650 mg PO Q6 PRN PRN Reason: Pain, Mild (1-3) Last Admin: 04/03/17 18:55 Dose: 650 mg Albuterol/Ipratropium (Duoneb 3 Mg/0.5 Mg (3 Ml) Ud) 3 ml INH RTID [facility] Last Admin: 04/04/17 13:07 Dose: 3 ml Aspirin (Aspirin) 325 mg PO DAILY [facility] Last Admin: 04/04/17 09:18 Dose: 325 mg Atorvastatin Calcium (Lipitor) 40 mg PO HS [facility] Last Admin: 04/03/17 21:12 Dose: 40 mg Carbidopa/Levodopa (Sinemet) 1 tab PO TID [facility] Last Admin: 04/04/17 17:22 Dose: 1 tab Dexamethasone (Decadron Inj) 4 mg IVP Q6 [facility] Last Admin: 04/04/17 17:20 Dose: 4 mg Finasteride (Proscar) 5 mg PO HS [facility] Last Admin: 04/03/17 21:12 Dose: 5 mg Ceftriaxone Sodium 1 gm/ (Sodium Chloride) 100 mls @ 100 mls/hr IVPB DAILY [facility] PRN Reason: Protocol Last Admin: 04/04/17 09:21 Dose: 100 mls/hr Insulin Human Regular (Humulin R) 0 units SC ACHS [facility] PRN Reason: Protocol Last Admin: 04/04/17 17:21 Dose: Not Given Mannitol (Mannitol) 20 gm IV 0400,1000,1600,2200 [facility] Last Admin: 04/04/17 17:22 Dose: 20 gm Metformin HCl (Glucophage) 500 mg PO BIDWM [facility] Last Admin: 04/04/17 17:21 Dose: 500 mg Metoprolol Tartrate (Lopressor) 50 mg PO Q12 [facility] Last Admin: 04/04/17 10:08 Dose: 50 mg Montelukast Sodium (Singulair) 10 mg PO HS [facility] Last Admin: 04/03/17 21:13 Dose: 10 mg Tamsulosin HCl (Flomax) 0.4 mg PO HS [facility] Last Admin: 04/03/17 21:12 Dose: 0.4 mg Valsartan (Diovan) 80 mg PO DAILY [facility] Last Admin: 04/04/17 09:11 Dose: 80 mg - Labs Labs: 04/01/17 10:18 04/01/17 09:13 PT 11.0 Seconds (9.8-13.1) 03/13/17 14:40 INR 1.0 (0.9-1.2) 03/13/17 14:40 APTT 22.0 Seconds (25.6-37.1) L 03/13/17 14:40 - Constitutional Appears: Chronically Ill - Head Exam Head Exam: NORMAL INSPECTION - Eye Exam Eye Exam: PERRL - ENT Exam ENT Exam: Normal Exam - Neck Exam Neck Exam: Normal Inspection - Respiratory Exam Respiratory Exam: Decreased Breath Sounds (at bases) - Cardiovascular Exam Cardiovascular Exam: REGULAR RHYTHM - GI/Abdominal Exam GI & Abdominal Exam: Soft, Normal Bowel Sounds - Extremities Exam Extremities Exam: Normal Inspection - Back Exam Back Exam: NORMAL INSPECTION - Neurological Exam Neurological Exam: Awake Additional comments: Answer questions , AOx3, follows commands, L hemipharesia improved , increased movement LUE and LLE - Psychiatric Exam Additional comments: calm - Skin Skin Exam: Warm Assessment and Plan (1) Acute CVA (cerebrovascular accident) Status: Acute (2) Encephalopathy Status: Acute (3) Anxiety and depression Status: Chronic (4) Generalized weakness Status: Chronic (5) Dementia Status: Chronic (6) HTN (hypertension) Status: Chronic (7) COPD (chronic obstructive pulmonary disease) Status: Chronic (8) History of CVA (cerebrovascular accident) Status: Chronic (9) Headache Status: Resolved (10) History of laminectomy Status: Acute (11) Cardiac arrhythmia Status: Acute (12) UTI (urinary tract infection) Status: Acute - Assessment and Plan (Free Text) Plan: Continue Manitol and Decadron to be taper down, attempt to transfer to Acute Care Unit
--- NOTE | 2017-04-04 23:54 | CP.PCM.PN ---
Subjective - Date & Time of Evaluation Date of Evaluation: 04/04/17 Time of Evaluation: 21:00 - Subjective Subjective: Patient is doing better gradually, he is moving the Left UE and Left LE with a power of 3 +/5 He is more awake, alert, Oriented X 3. His speech is improving and he is talking with a 4 to 5 words sentences, expressing himself very well. He is interactive and is qualified now to go to Acute Rehab at [facility], 6th floor. His serum glucose is under control with Insulin sliding scale. Case is discussed with Dr Dahl and will Taper IV Mannitol and Decadron starting Saturday, to refer him to Acute Rehab at [facility] whenever he is accepted and admitted there. Objective - Vital Signs/Intake and Output Vital Signs (last 24 hours): Temp Pulse Resp BP Pulse Ox 97.2 F L 86 17 160/82 H 98 04/04/17 19:57 04/04/17 21:36 04/04/17 19:57 04/04/17 21:36 04/04/17 19:57 - Medications Medications: Current Medications Acetaminophen (Tylenol 325mg Tab) 650 mg PO Q6 PRN PRN Reason: Pain, Mild (1-3) Last Admin: 04/04/17 21:20 Dose: 650 mg Albuterol/Ipratropium (Duoneb 3 Mg/0.5 Mg (3 Ml) Ud) 3 ml INH RTID [facility] Last Admin: 04/04/17 20:02 Dose: 3 ml Aspirin (Aspirin) 325 mg PO DAILY [facility] Last Admin: 04/04/17 09:18 Dose: 325 mg Atorvastatin Calcium (Lipitor) 40 mg PO HS [facility] Last Admin: 04/04/17 21:36 Dose: 40 mg Carbidopa/Levodopa (Sinemet) 1 tab PO TID [facility] Last Admin: 04/04/17 17:22 Dose: 1 tab Dexamethasone (Decadron Inj) 4 mg IVP Q6 [facility] Last Admin: 04/04/17 21:35 Dose: 4 mg Finasteride (Proscar) 5 mg PO HS [facility] Last Admin: 04/04/17 21:36 Dose: 5 mg Ceftriaxone Sodium 1 gm/ (Sodium Chloride) 100 mls @ 100 mls/hr IVPB DAILY [facility] PRN Reason: Protocol Last Admin: 04/04/17 09:21 Dose: 100 mls/hr Insulin Human Regular (Humulin R) 0 units SC ACHS [facility] PRN Reason: Protocol Last Admin: 04/04/17 21:38 Dose: 2 units Mannitol (Mannitol) 20 gm IV 0400,1000,1600,2200 [facility] Last Admin: 04/04/17 21:55 Dose: 20 gm Metformin HCl (Glucophage) 500 mg PO BIDWM [facility] Last Admin: 04/04/17 17:21 Dose: 500 mg Metoprolol Tartrate (Lopressor) 50 mg PO Q12 [facility] Last Admin: 04/04/17 21:36 Dose: 50 mg Montelukast Sodium (Singulair) 10 mg PO HS [facility] Last Admin: 04/04/17 21:36 Dose: 10 mg Tamsulosin HCl (Flomax) 0.4 mg PO HS [facility] Last Admin: 04/04/17 21:36 Dose: 0.4 mg Valsartan (Diovan) 80 mg PO DAILY [facility] Last Admin: 04/04/17 09:11 Dose: 80 mg - Labs Labs: 04/01/17 10:18 04/01/17 09:13 PT 11.0 Seconds (9.8-13.1) 03/13/17 14:40 INR 1.0 (0.9-1.2) 03/13/17 14:40 APTT 22.0 Seconds (25.6-37.1) L 03/13/17 14:40 Assessment and Plan (1) Dizziness Status: Resolved (2) Headache Status: Resolved (3) Dementia Status: Chronic (4) Inability to walk Status: Chronic (5) BPH (benign prostatic hyperplasia) Status: Chronic (6) CVA (cerebral vascular accident) Status: Acute
[2017-04-05] MEDS: Mannitol 12.5 gm/50 ml Inj IV SCH ×4 (05:10→21:44)
[2017-04-05] MEDS: Dexamethasone 4 mg/1 ml IVP SCH ×4 (05:15→21:22)
[2017-04-05] MEDS: Albuterol-Ipratrop 3 mg / 0.5 (3 ml) UD INH SCH ×3 (08:14→19:06)
[2017-04-05] MEDS: Insulin Regular 100 units/ml SC SCH ×4 (09:35→22:00)
[2017-04-05 11:02] LABS: HEMOGLOBIN 14.1 g/dL (12.0-18.0); MEAN CELL VOLUME 92.5 fl (80.0-94.0); MEAN CORPUSCULAR HGB CONC 32.4 g/dL (33.0-37.0); RBC 4.71 Mil/uL (4.40-5.90); RED CELL DISTRIBUTION WIDTH 14.5 % (11.5-14.5)
[2017-04-05 11:12] LABS: BLOOD UREA NITROGEN 24 mg/dl (9-20); CALCIUM 9.1 mg/dL (8.4-10.2); GFR AFRICAN-AMERICAN > 60; GFR NON-AFRICAN AMERICAN > 60
--- NOTE | 2017-04-05 16:38 | CP.PCM.PN ---
Subjective - Date & Time of Evaluation Date of Evaluation: 04/05/17 Time of Evaluation: 15:00 - Subjective Subjective: F/U Acute CVA Awake, no A/D, follows commands Objective - Vital Signs/Intake and Output Vital Signs (last 24 hours): Temp Pulse Resp BP Pulse Ox 98.0 F 83 18 101/75 95 04/05/17 15:59 04/05/17 15:59 04/05/17 15:59 04/05/17 15:59 04/05/17 15:59 - Medications Medications: Current Medications Acetaminophen (Tylenol 325mg Tab) 650 mg PO Q6 PRN PRN Reason: Pain, Mild (1-3) Last Admin: 04/05/17 16:08 Dose: 650 mg Albuterol/Ipratropium (Duoneb 3 Mg/0.5 Mg (3 Ml) Ud) 3 ml INH RTID [facility] Last Admin: 04/05/17 13:53 Dose: 3 ml Aspirin (Aspirin) 325 mg PO DAILY [facility] Last Admin: 04/05/17 09:38 Dose: 325 mg Atorvastatin Calcium (Lipitor) 40 mg PO HS [facility] Last Admin: 04/04/17 21:36 Dose: 40 mg Carbidopa/Levodopa (Sinemet) 1 tab PO TID [facility] Last Admin: 04/05/17 16:03 Dose: 1 tab Dexamethasone (Decadron Inj) 4 mg IVP Q6 [facility] Last Admin: 04/05/17 16:02 Dose: 4 mg Finasteride (Proscar) 5 mg PO HS [facility] Last Admin: 04/04/17 21:36 Dose: 5 mg Ceftriaxone Sodium 1 gm/ (Sodium Chloride) 100 mls @ 100 mls/hr IVPB DAILY [facility] PRN Reason: Protocol Last Admin: 04/05/17 12:20 Dose: 100 mls/hr Insulin Human Regular (Humulin R) 0 units SC ACHS [facility] PRN Reason: Protocol Last Admin: 04/05/17 16:06 Dose: 2 units Mannitol (Mannitol) 20 gm IV 0400,1000,1600,2200 [facility] Last Admin: 04/05/17 16:02 Dose: 20 gm Metformin HCl (Glucophage) 500 mg PO BIDWM [facility] Last Admin: 04/05/17 16:03 Dose: 500 mg Metoprolol Tartrate (Lopressor) 50 mg PO Q12 [facility] Last Admin: 04/05/17 09:44 Dose: 50 mg Montelukast Sodium (Singulair) 10 mg PO HS [facility] Last Admin: 04/04/17 21:36 Dose: 10 mg Tamsulosin HCl (Flomax) 0.4 mg PO HS [facility] Last Admin: 04/04/17 21:36 Dose: 0.4 mg Valsartan (Diovan) 80 mg PO DAILY [facility] Last Admin: 04/05/17 09:35 Dose: 80 mg - Labs Labs: 04/05/17 10:20 04/05/17 10:20 PT 11.0 Seconds (9.8-13.1) 03/13/17 14:40 INR 1.0 (0.9-1.2) 03/13/17 14:40 APTT 22.0 Seconds (25.6-37.1) L 03/13/17 14:40 - Constitutional Appears: Chronically Ill - Head Exam Head Exam: NORMAL INSPECTION - Eye Exam Eye Exam: PERRL - ENT Exam ENT Exam: Normal Exam - Neck Exam Neck Exam: Normal Inspection - Respiratory Exam Respiratory Exam: Decreased Breath Sounds (at bases) - Cardiovascular Exam Cardiovascular Exam: REGULAR RHYTHM - GI/Abdominal Exam GI & Abdominal Exam: Soft, Normal Bowel Sounds - Extremities Exam Extremities Exam: Normal Inspection - Back Exam Back Exam: NORMAL INSPECTION - Neurological Exam Neurological Exam: Awake Additional comments: Answer questions, follows commands, L hemipharesia improved, increased movement LUE and LLE - Psychiatric Exam Psychiatric exam: Normal Mood - Skin Skin Exam: Warm Assessment and Plan (1) Acute CVA (cerebrovascular accident) Status: Acute (2) Encephalopathy Status: Acute (3) Anxiety and depression Status: Chronic (4) Generalized weakness Status: Chronic (5) Dementia Status: Chronic (6) HTN (hypertension) Status: Chronic (7) COPD (chronic obstructive pulmonary disease) Status: Chronic (8) History of CVA (cerebrovascular accident) Status: Chronic (9) Headache Status: Resolved (10) History of laminectomy Status: Acute (11) Cardiac arrhythmia Status: Acute (12) UTI (urinary tract infection) Status: Acute - Assessment and Plan (Free Text) Plan: Continue Decadron, Mannitol and rest of Tx.
--- NOTE | 2017-04-05 22:46 | CP.PCM.PN ---
Subjective - Date & Time of Evaluation Date of Evaluation: 04/05/17 Time of Evaluation: 22:42 - Subjective Subjective: He is on Isolation to treat his infection. He is moving the Left side better, Let Leg power is 4/5, left Upper Extremity power is 2 to 3/5 He is able to talk with long sentences. At times he is oriented X 3 with some fluctuation of his level of Orientation. He has good recall of his old memory, inadequate immediate and recent memory at times. serum Osmolality is 297 Serum Glucose is controlled at 150 to 200 by Insulin sliding scale. We will start tapering his IV Mannitol and IV Decadron in AM We are trying to transfer him to Acute Rehab at the hospital. Objective - Vital Signs/Intake and Output Vital Signs (last 24 hours): Temp Pulse Resp BP Pulse Ox 97.3 F L 90 20 135/78 97 04/05/17 21:07 04/05/17 21:22 04/05/17 21:07 04/05/17 21:22 04/05/17 21:07 - Medications Medications: Current Medications Acetaminophen (Tylenol 325mg Tab) 650 mg PO Q6 PRN PRN Reason: Pain, Mild (1-3) Last Admin: 04/05/17 22:21 Dose: 650 mg Albuterol/Ipratropium (Duoneb 3 Mg/0.5 Mg (3 Ml) Ud) 3 ml INH RTID [facility] Last Admin: 04/05/17 19:06 Dose: 3 ml Aspirin (Aspirin) 325 mg PO DAILY [facility] Last Admin: 04/05/17 09:38 Dose: 325 mg Atorvastatin Calcium (Lipitor) 40 mg PO HS [facility] Last Admin: 04/05/17 21:22 Dose: 40 mg Carbidopa/Levodopa (Sinemet) 1 tab PO TID [facility] Last Admin: 04/05/17 16:03 Dose: 1 tab Dexamethasone (Decadron Inj) 4 mg IVP Q6 [facility] Last Admin: 04/05/17 21:22 Dose: 4 mg Finasteride (Proscar) 5 mg PO HS [facility] Last Admin: 04/05/17 21:22 Dose: 5 mg Ceftriaxone Sodium 1 gm/ (Sodium Chloride) 100 mls @ 100 mls/hr IVPB DAILY [facility] PRN Reason: Protocol Last Admin: 04/05/17 12:20 Dose: 100 mls/hr Insulin Human Regular (Humulin R) 0 units SC ACHS [facility] PRN Reason: Protocol Last Admin: 04/05/17 16:06 Dose: 2 units Mannitol (Mannitol) 20 gm IV 0400,1000,1600,2200 [facility] Last Admin: 04/05/17 21:44 Dose: 20 gm Metformin HCl (Glucophage) 500 mg PO BIDWM [facility] Last Admin: 04/05/17 16:03 Dose: 500 mg Metoprolol Tartrate (Lopressor) 50 mg PO Q12 [facility] Last Admin: 04/05/17 21:22 Dose: 50 mg Montelukast Sodium (Singulair) 10 mg PO HS [facility] Last Admin: 04/05/17 21:22 Dose: 10 mg Tamsulosin HCl (Flomax) 0.4 mg PO HS [facility] Last Admin: 04/05/17 21:22 Dose: 0.4 mg Valsartan (Diovan) 80 mg PO DAILY [facility] Last Admin: 04/05/17 09:35 Dose: 80 mg - Labs Labs: 04/05/17 10:20 04/05/17 10:20 PT 11.0 Seconds (9.8-13.1) 03/13/17 14:40 INR 1.0 (0.9-1.2) 03/13/17 14:40 APTT 22.0 Seconds (25.6-37.1) L 03/13/17 14:40 Assessment and Plan (1) Dizziness Status: Resolved (2) Headache Status: Resolved (3) Dementia Status: Chronic (4) Inability to walk Status: Chronic (5) BPH (benign prostatic hyperplasia) Status: Chronic (6) CVA (cerebral vascular accident) Status: Acute
[2017-04-06] MEDS: Dexamethasone 4 mg/1 ml IVP SCH ×3 (04:26→16:42)
[2017-04-06] MEDS: Mannitol 12.5 gm/50 ml Inj IV SCH ×3 (04:56→16:44)
[2017-04-06] MEDS: Insulin Regular 100 units/ml SC SCH ×4 (06:45→22:10)
[2017-04-06] MEDS: Albuterol-Ipratrop 3 mg / 0.5 (3 ml) UD INH SCH ×3 (08:00→20:38)
--- NOTE | 2017-04-06 15:36 | CP.PCM.PN ---
Subjective - Date & Time of Evaluation Date of Evaluation: 04/06/17 Time of Evaluation: 14:10 - Subjective Subjective: F/U Acute CVA Pt awake, no A/D, verbally responsive. Objective - Vital Signs/Intake and Output Vital Signs (last 24 hours): Temp Pulse Resp BP Pulse Ox 97.4 F L 60 20 157/78 H 98 04/06/17 12:00 04/06/17 12:00 04/06/17 12:00 04/06/17 12:00 04/06/17 12:00 - Medications Medications: Current Medications Acetaminophen (Tylenol 325mg Tab) 650 mg PO Q6 PRN PRN Reason: Pain, Mild (1-3) Last Admin: 04/06/17 13:13 Dose: 650 mg Albuterol/Ipratropium (Duoneb 3 Mg/0.5 Mg (3 Ml) Ud) 3 ml INH RTID [facility] Last Admin: 04/06/17 13:42 Dose: 3 ml Aspirin (Aspirin) 325 mg PO DAILY [facility] Last Admin: 04/06/17 09:54 Dose: 325 mg Atorvastatin Calcium (Lipitor) 40 mg PO HS [facility] Last Admin: 04/05/17 21:22 Dose: 40 mg Carbidopa/Levodopa (Sinemet) 1 tab PO TID [facility] Last Admin: 04/06/17 14:57 Dose: Not Given Dexamethasone (Decadron Inj) 4 mg IVP Q6 [facility] Last Admin: 04/06/17 09:56 Dose: 4 mg Finasteride (Proscar) 5 mg PO HS [facility] Last Admin: 04/05/17 21:22 Dose: 5 mg Insulin Human Regular (Humulin R) 0 units SC ACHS [facility] PRN Reason: Protocol Last Admin: 04/06/17 11:27 Dose: 3 units Mannitol (Mannitol) 20 gm IV 0400,1000,1600,2200 [facility] Last Admin: 04/06/17 09:43 Dose: 20 gm Metformin HCl (Glucophage) 500 mg PO BIDWM [facility] Last Admin: 04/06/17 09:13 Dose: 500 mg Metoprolol Tartrate (Lopressor) 50 mg PO Q12 [facility] Last Admin: 04/06/17 09:13 Dose: 50 mg Montelukast Sodium (Singulair) 10 mg PO HS [facility] Last Admin: 04/05/17 21:22 Dose: 10 mg Tamsulosin HCl (Flomax) 0.4 mg PO HS [facility] Last Admin: 04/05/17 21:22 Dose: 0.4 mg Valsartan (Diovan) 80 mg PO DAILY [facility] Last Admin: 04/06/17 09:57 Dose: 80 mg - Labs Labs: 04/05/17 10:20 04/05/17 10:20 PT 11.0 Seconds (9.8-13.1) 03/13/17 14:40 INR 1.0 (0.9-1.2) 03/13/17 14:40 APTT 22.0 Seconds (25.6-37.1) L 03/13/17 14:40 - Constitutional Appears: Chronically Ill - Head Exam Head Exam: NORMAL INSPECTION - Eye Exam Eye Exam: PERRL - ENT Exam ENT Exam: Normal Exam - Neck Exam Neck Exam: Normal Inspection - Respiratory Exam Respiratory Exam: Decreased Breath Sounds (at bases) - Cardiovascular Exam Cardiovascular Exam: REGULAR RHYTHM - GI/Abdominal Exam GI & Abdominal Exam: Soft, Normal Bowel Sounds - Extremities Exam Extremities Exam: Normal Inspection - Back Exam Back Exam: NORMAL INSPECTION - Neurological Exam Neurological Exam: Awake, Oriented x3 Additional comments: Answer questions, follows commands, L hemipharesia improved, increased movements LUE and LLE - Psychiatric Exam Psychiatric exam: Normal Mood - Skin Skin Exam: Warm Assessment and Plan (1) Acute CVA (cerebrovascular accident) Status: Acute (2) Encephalopathy Status: Acute (3) Anxiety and depression Status: Chronic (4) Generalized weakness Status: Chronic (5) Dementia Status: Chronic (6) HTN (hypertension) Status: Chronic (7) COPD (chronic obstructive pulmonary disease) Status: Chronic (8) History of CVA (cerebrovascular accident) Status: Chronic (9) Headache Status: Resolved (10) History of laminectomy Status: Acute (11) Cardiac arrhythmia Status: Acute (12) UTI (urinary tract infection) Status: Acute - Assessment and Plan (Free Text) Plan: Continue Duoneb, Decadron, Mannitol, Diovan, Lopressor and rest of Tx.
--- NOTE | 2017-04-06 18:43 | CP.PCM.PN ---
Subjective - Date & Time of Evaluation Date of Evaluation: 04/06/17 Time of Evaluation: 18:31 - Subjective Subjective: There is no exacerbations of A.Fib. He is a3wake, alert oriented on and off, following commands with a good old memory. Left side weakness at 2-3/5 in the Left UE and 3/5 in the Left LE. [facility] is recommending to send to [facility] or to TCU. We will start tapering his IV Decadron and his IV Mannitol Objective - Vital Signs/Intake and Output Vital Signs (last 24 hours): Temp Pulse Resp BP Pulse Ox 98.2 F 66 20 132/68 99 04/06/17 16:18 04/06/17 16:18 04/06/17 16:18 04/06/17 16:18 04/06/17 16:18 Intake and Output: 04/06/17 04/06/17 06:59 18:59 Intake Total 500 Balance 500 - Medications Medications: Current Medications Acetaminophen (Tylenol 325mg Tab) 650 mg PO Q6 PRN PRN Reason: Pain, Mild (1-3) Last Admin: 04/06/17 18:21 Dose: 650 mg Albuterol/Ipratropium (Duoneb 3 Mg/0.5 Mg (3 Ml) Ud) 3 ml INH RTID [facility] Last Admin: 04/06/17 13:42 Dose: 3 ml Aspirin (Aspirin) 325 mg PO DAILY [facility] Last Admin: 04/06/17 09:54 Dose: 325 mg Atorvastatin Calcium (Lipitor) 40 mg PO HS [facility] Last Admin: 04/05/17 21:22 Dose: 40 mg Carbidopa/Levodopa (Sinemet) 1 tab PO TID [facility] Last Admin: 04/06/17 16:42 Dose: 1 tab Dexamethasone (Decadron Inj) 4 mg IVP Q6 [facility] Last Admin: 04/06/17 16:42 Dose: 4 mg Finasteride (Proscar) 5 mg PO HS [facility] Last Admin: 04/05/17 21:22 Dose: 5 mg Insulin Human Regular (Humulin R) 0 units SC ACHS [facility] PRN Reason: Protocol Last Admin: 04/06/17 17:31 Dose: 3 units Mannitol (Mannitol) 20 gm IV 0400,1000,1600,2200 [facility] Last Admin: 04/06/17 16:44 Dose: 20 gm Metformin HCl (Glucophage) 500 mg PO BIDWM [facility] Last Admin: 04/06/17 16:44 Dose: 500 mg Metoprolol Tartrate (Lopressor) 50 mg PO Q12 [facility] Last Admin: 04/06/17 09:13 Dose: 50 mg Montelukast Sodium (Singulair) 10 mg PO HS [facility] Last Admin: 04/05/17 21:22 Dose: 10 mg Tamsulosin HCl (Flomax) 0.4 mg PO [facility] Last Admin: 04/05/17 21:22 Dose: 0.4 mg Valsartan (Diovan) 80 mg PO DAILY [facility] Last Admin: 04/06/17 09:57 Dose: 80 mg - Labs Labs: 04/05/17 10:20 04/05/17 10:20 PT 11.0 Seconds (9.8-13.1) 03/13/17 14:40 INR 1.0 (0.9-1.2) 03/13/17 14:40 APTT 22.0 Seconds (25.6-37.1) L 03/13/17 14:40 Assessment and Plan (1) Dizziness Status: Resolved (2) Headache Status: Resolved (3) Dementia Status: Chronic (4) Inability to walk Status: Chronic (5) BPH (benign prostatic hyperplasia) Status: Chronic (6) CVA (cerebral vascular accident) Assessment & Plan: Left Hemiparesis is improving Status: Acute
[2017-04-06] MEDS ORDERED: Mannitol 12.5 gm/50 ml Inj IV SCH (21:00)
[2017-04-06] MEDS ORDERED: Dexamethasone 4 mg/1 ml IVP SCH (21:00)
[2017-04-07] MEDS: Dexamethasone 4 mg/1 ml IVP SCH ×2 (03:38→16:46)
[2017-04-07] MEDS: Mannitol 12.5 gm/50 ml Inj IV SCH ×2 (04:14→16:48)
[2017-04-07] MEDS: Albuterol-Ipratrop 3 mg / 0.5 (3 ml) UD INH SCH ×2 (07:59→13:23)
[2017-04-07] MEDS: Insulin Regular 100 units/ml SC SCH ×4 (09:14→22:19)
--- NOTE | 2017-04-07 17:55 | CP.PCM.PN ---
Subjective - Date & Time of Evaluation Date of Evaluation: 04/07/17 - Subjective Subjective: F/U Acute CVA aake , follows commands , answer questions Objective - Vital Signs/Intake and Output Vital Signs (last 24 hours): Temp Pulse Resp BP Pulse Ox 97.3 F L 59 L 20 134/72 97 04/07/17 15:43 04/07/17 15:43 04/07/17 15:43 04/07/17 15:43 04/07/17 15:43 - Medications Medications: Current Medications Acetaminophen (Tylenol 325mg Tab) 650 mg PO Q6 PRN PRN Reason: Pain, Mild (1-3) Last Admin: 04/07/17 09:13 Dose: 650 mg Albuterol/Ipratropium (Duoneb 3 Mg/0.5 Mg (3 Ml) Ud) 3 ml INH RTID [facility] Last Admin: 04/07/17 13:23 Dose: 3 ml Aspirin (Aspirin) 325 mg PO DAILY [facility] Last Admin: 04/07/17 09:13 Dose: 325 mg Atorvastatin Calcium (Lipitor) 40 mg PO HS [facility] Last Admin: 04/06/17 22:09 Dose: 40 mg Carbidopa/Levodopa (Sinemet) 1 tab PO TID [facility] Last Admin: 04/07/17 16:48 Dose: 1 tab Dexamethasone (Decadron Inj) 4 mg IVP Q12@0400,1600 [facility] Last Admin: 04/07/17 16:46 Dose: 4 mg Finasteride (Proscar) 5 mg PO HS [facility] Last Admin: 04/06/17 22:09 Dose: 5 mg Insulin Human Regular (Humulin R) 0 units SC ACHS [facility] PRN Reason: Protocol Last Admin: 04/07/17 16:47 Dose: 2 units Mannitol (Mannitol) 20 gm IV Q12@0400,1600 [facility] Last Admin: 04/07/17 16:48 Dose: 20 gm Metformin HCl (Glucophage) 500 mg PO BIDWM [facility] Last Admin: 04/07/17 16:47 Dose: 500 mg Metoprolol Tartrate (Lopressor) 50 mg PO Q12 [facility] Last Admin: 04/07/17 09:16 Dose: 50 mg Montelukast Sodium (Singulair) 10 mg PO HS [facility] Last Admin: 04/06/17 22:09 Dose: 10 mg Tamsulosin HCl (Flomax) 0.4 mg PO HS [facility] Last Admin: 04/06/17 22:09 Dose: 0.4 mg Valsartan (Diovan) 80 mg PO DAILY [facility] Last Admin: 04/07/17 09:14 Dose: 80 mg - Labs Labs: 04/05/17 10:20 04/05/17 10:20 PT 11.0 Seconds (9.8-13.1) 03/13/17 14:40 INR 1.0 (0.9-1.2) 03/13/17 14:40 APTT 22.0 Seconds (25.6-37.1) L 03/13/17 14:40 - Constitutional Appears: Chronically Ill - Head Exam Head Exam: NORMAL INSPECTION - Eye Exam Eye Exam: PERRL - ENT Exam ENT Exam: Normal Exam - Neck Exam Neck Exam: Normal Inspection - Respiratory Exam Respiratory Exam: Decreased Breath Sounds (at bases) - Cardiovascular Exam Cardiovascular Exam: REGULAR RHYTHM - GI/Abdominal Exam GI & Abdominal Exam: Soft, Normal Bowel Sounds - Back Exam Back Exam: CVA tenderness (L) - Neurological Exam Neurological Exam: Alert, Oriented x3 Additional comments: Follows commands, answer questions, L hemipharesia improved, increased movements LUE and LLE - Psychiatric Exam Psychiatric exam: Normal Mood - Skin Skin Exam: Warm Assessment and Plan (1) Acute CVA (cerebrovascular accident) Status: Acute (2) Encephalopathy Status: Acute (3) Anxiety and depression Status: Chronic (4) Generalized weakness Status: Chronic (5) Dementia Status: Chronic (6) HTN (hypertension) Status: Chronic (7) COPD (chronic obstructive pulmonary disease) Status: Chronic (8) History of CVA (cerebrovascular accident) Status: Chronic (9) Headache Status: Resolved (10) History of laminectomy Status: Acute (11) Cardiac arrhythmia Status: Acute (12) UTI (urinary tract infection) Status: Acute - Assessment and Plan (Free Text) Plan: continue Manitol , Decadron with slow taper down , Diovan , Lopressor , Sinemet , Glucophage , Insulin , PT
--- NOTE | 2017-04-08 00:53 | CP.PCM.PN ---
Subjective - Date & Time of Evaluation Date of Evaluation: 04/07/17 Time of Evaluation: 22:30 - Subjective Subjective: Doing the same. He is interactive, oriented X 3, incontinent of urine, moving the right side normally, with left hemiparesis 2/5 in left UE and 3+/5 the left LE. His Blood Glucose is controlled by Sliding Scale. His serum Osmolality is 291. IV Decadron is reduced to 4mg Q 12 hrs IV Mannitol is down to 20 gm of Mannitol 25% Q 12hrs. He is to be transferred to a Rehab facility soon. Decadron must be tapered, he can receive Oral Decadron X 5 more days Mannitol might be stopped prior to transfer to a Rehab. VS are normal. Objective - Vital Signs/Intake and Output Vital Signs (last 24 hours): Temp Pulse Resp BP Pulse Ox 97.3 F L 64 16 125/71 97 04/08/17 00:23 04/08/17 00:23 04/08/17 00:23 04/08/17 00:23 04/08/17 00:23 - Medications Medications: Current Medications Acetaminophen (Tylenol 325mg Tab) 650 mg PO Q6 PRN PRN Reason: Pain, Mild (1-3) Last Admin: 04/07/17 23:19 Dose: 650 mg Albuterol/Ipratropium (Duoneb 3 Mg/0.5 Mg (3 Ml) Ud) 3 ml INH RTID [facility] Last Admin: 04/07/17 13:23 Dose: 3 ml Aspirin (Aspirin) 325 mg PO DAILY [facility] Last Admin: 04/07/17 09:13 Dose: 325 mg Atorvastatin Calcium (Lipitor) 40 mg PO HS [facility] Last Admin: 04/07/17 22:15 Dose: 40 mg Carbidopa/Levodopa (Sinemet) 1 tab PO TID [facility] Last Admin: 04/07/17 16:48 Dose: 1 tab Dexamethasone (Decadron Inj) 4 mg IVP Q12@0400,1600 [facility] Last Admin: 04/07/17 16:46 Dose: 4 mg Finasteride (Proscar) 5 mg PO HS [facility] Last Admin: 04/07/17 22:15 Dose: 5 mg Insulin Human Regular (Humulin R) 0 units SC ACHS [facility] PRN Reason: Protocol Last Admin: 04/07/17 22:19 Dose: Not Given Mannitol (Mannitol) 20 gm IV Q12@0400,1600 [facility] Last Admin: 04/07/17 16:48 Dose: 20 gm Metformin HCl (Glucophage) 500 mg PO BIDWM [facility] Last Admin: 04/07/17 16:47 Dose: 500 mg Metoprolol Tartrate (Lopressor) 50 mg PO Q12 [facility] Last Admin: 04/07/17 22:17 Dose: Not Given Montelukast Sodium (Singulair) 10 mg PO HS [facility] Last Admin: 04/07/17 22:15 Dose: 10 mg Tamsulosin HCl (Flomax) 0.4 mg PO HS [facility] Last Admin: 04/07/17 22:15 Dose: 0.4 mg Valsartan (Diovan) 80 mg PO DAILY [facility] Last Admin: 04/07/17 09:14 Dose: 80 mg - Labs Labs: 04/05/17 10:20 04/05/17 10:20 PT 11.0 Seconds (9.8-13.1) 03/13/17 14:40 INR 1.0 (0.9-1.2) 03/13/17 14:40 APTT 22.0 Seconds (25.6-37.1) L 03/13/17 14:40 Assessment and Plan (1) Dizziness Status: Resolved (2) Headache Status: Resolved (3) Dementia Status: Chronic (4) Inability to walk Status: Chronic (5) BPH (benign prostatic hyperplasia) Status: Chronic (6) CVA (cerebral vascular accident) Status: Acute
[2017-04-08] MEDS: Mannitol 12.5 gm/50 ml Inj IV SCH ×2 (04:16→17:15)
[2017-04-08] MEDS: Dexamethasone 4 mg/1 ml IVP SCH ×2 (04:16→17:15)
[2017-04-08] MEDS: Insulin Regular 100 units/ml SC SCH ×4 (06:34→23:13)
[2017-04-08] MEDS: Albuterol-Ipratrop 3 mg / 0.5 (3 ml) UD INH SCH ×3 (08:05→19:30)
[2017-04-08] MEDS: Lidocaine 5% Patch TD SCH (14:16)
--- NOTE | 2017-04-08 16:07 | CP.PCM.PN ---
Subjective - Date & Time of Evaluation Date of Evaluation: 04/08/17 Time of Evaluation: 12:40 - Subjective Subjective: F/U Acute CVA awake , no AD , Ox3 , answer questions slowly , follows commands Objective - Vital Signs/Intake and Output Vital Signs (last 24 hours): Temp Pulse Resp BP Pulse Ox 97.4 F L 78 20 117/73 97 04/08/17 15:39 04/08/17 15:39 04/08/17 15:39 04/08/17 15:39 04/08/17 15:39 - Medications Medications: Current Medications Acetaminophen (Tylenol 325mg Tab) 650 mg PO Q6 PRN PRN Reason: Pain, Mild (1-3) Last Admin: 04/08/17 10:51 Dose: 650 mg Albuterol/Ipratropium (Duoneb 3 Mg/0.5 Mg (3 Ml) Ud) 3 ml INH RTID [facility] Last Admin: 04/08/17 13:41 Dose: 3 ml Aspirin (Aspirin) 325 mg PO DAILY [facility] Last Admin: 04/08/17 09:58 Dose: 325 mg Atorvastatin Calcium (Lipitor) 40 mg PO HS [facility] Last Admin: 04/07/17 22:15 Dose: 40 mg Carbidopa/Levodopa (Sinemet) 1 tab PO TID [facility] Last Admin: 04/08/17 14:14 Dose: 1 tab Dexamethasone (Decadron Inj) 4 mg IVP Q12@0400,1600 [facility] Last Admin: 04/08/17 04:16 Dose: 4 mg Finasteride (Proscar) 5 mg PO [facility] Last Admin: 04/07/17 22:15 Dose: 5 mg Insulin Human Regular (Humulin R) 0 units SC ACHS [facility] PRN Reason: Protocol Last Admin: 04/08/17 12:13 Dose: 6 units Lidocaine (Lidoderm) 1 ea TD DAILY [facility] Mannitol (Mannitol) 20 gm IV Q12@0400,1600 [facility] Last Admin: 04/08/17 04:16 Dose: 20 gm Metformin HCl (Glucophage) 500 mg PO BIDWM [facility] Last Admin: 04/08/17 08:59 Dose: 500 mg Metoprolol Tartrate (Lopressor) 50 mg PO Q12 [facility] Last Admin: 04/08/17 09:56 Dose: 50 mg Montelukast Sodium (Singulair) 10 mg PO [facility] Last Admin: 04/07/17 22:15 Dose: 10 mg Tamsulosin HCl (Flomax) 0.4 mg PO HS [facility] Last Admin: 04/07/17 22:15 Dose: 0.4 mg Valsartan (Diovan) 80 mg PO DAILY [facility] Last Admin: 04/08/17 09:55 Dose: 80 mg - Labs Labs: 04/05/17 10:20 04/05/17 10:20 PT 11.0 Seconds (9.8-13.1) 03/13/17 14:40 INR 1.0 (0.9-1.2) 03/13/17 14:40 APTT 22.0 Seconds (25.6-37.1) L 03/13/17 14:40 - Constitutional Appears: Chronically Ill - Head Exam Head Exam: NORMAL INSPECTION - Eye Exam Eye Exam: PERRL - ENT Exam ENT Exam: Normal Exam - Neck Exam Neck Exam: Normal Inspection - Respiratory Exam Respiratory Exam: Decreased Breath Sounds (at bases) - Cardiovascular Exam Cardiovascular Exam: REGULAR RHYTHM - GI/Abdominal Exam GI & Abdominal Exam: Soft, Normal Bowel Sounds - Extremities Exam Extremities Exam: Normal Inspection - Back Exam Back Exam: NORMAL INSPECTION - Neurological Exam Neurological Exam: Awake Additional comments: Answer question, L hemipharesia improved, increased movements LUE and LLE. - Skin Skin Exam: Warm Assessment and Plan (1) Acute CVA (cerebrovascular accident) Status: Acute (2) Encephalopathy Status: Acute (3) Anxiety and depression Status: Chronic (4) Generalized weakness Status: Chronic (5) Dementia Status: Chronic (6) HTN (hypertension) Status: Chronic (7) COPD (chronic obstructive pulmonary disease) Status: Chronic (8) History of CVA (cerebrovascular accident) Status: Chronic (9) Headache Status: Resolved (10) History of laminectomy Status: Acute (11) Cardiac arrhythmia Status: Acute (12) UTI (urinary tract infection) Status: Acute - Assessment and Plan (Free Text) Plan: A o x3 , forgetful at times , not following PT commands at all times , incontinent bowell and bladder , Acute Rehab is not accepting Patient , will attempt to transfer Patient to [facility]
--- NOTE | 2017-04-09 02:12 | CP.PCM.PN ---
Subjective - Date & Time of Evaluation Date of Evaluation: 04/08/17 Time of Evaluation: 22:20 - Subjective Subjective: He is more interactive, oriented X 3 He is able to converse with the others. His Power is 3/5 on the Left side, 5/5 on the Right side. His Decadron is 4 mg Q 12 hrs. His Mannitol is 20 gm Q 12 hrs We are awaiting for the rehab where he can be accepted Objective - Vital Signs/Intake and Output Vital Signs (last 24 hours): Temp Pulse Resp BP Pulse Ox 97.6 F 73 19 126/72 97 04/08/17 23:00 04/08/17 23:14 04/08/17 23:00 04/08/17 23:14 04/08/17 23:00 - Medications Medications: Current Medications Acetaminophen (Tylenol 325mg Tab) 650 mg PO Q6 PRN PRN Reason: Pain, Mild (1-3) Last Admin: 04/08/17 10:51 Dose: 650 mg Albuterol/Ipratropium (Duoneb 3 Mg/0.5 Mg (3 Ml) Ud) 3 ml INH RTID [facility] Last Admin: 04/08/17 19:30 Dose: 3 ml Aspirin (Aspirin) 325 mg PO DAILY [facility] Last Admin: 04/08/17 09:58 Dose: 325 mg Atorvastatin Calcium (Lipitor) 40 mg PO HS [facility] Last Admin: 04/08/17 23:14 Dose: 40 mg Carbidopa/Levodopa (Sinemet) 1 tab PO TID [facility] Last Admin: 04/08/17 17:14 Dose: 1 tab Dexamethasone (Decadron Inj) 4 mg IVP Q12@0400,1600 [facility] Last Admin: 04/08/17 17:15 Dose: 4 mg Finasteride (Proscar) 5 mg PO HS [facility] Last Admin: 04/08/17 23:21 Dose: 5 mg Insulin Human Regular (Humulin R) 0 units SC ACHS [facility] PRN Reason: Protocol Last Admin: 04/08/17 23:13 Dose: Not Given Lidocaine (Lidoderm) 1 ea TD DAILY [facility] Last Admin: 04/08/17 14:16 Dose: 1 ea Mannitol (Mannitol) 20 gm IV Q12@0400,1600 [facility] Last Admin: 04/08/17 17:15 Dose: 20 gm Metformin HCl (Glucophage) 500 mg PO BIDWM [facility] Last Admin: 02/19/18 17:16 Dose: 500 mg Metoprolol Tartrate (Lopressor) 50 mg PO Q12 [facility] Last Admin: 04/08/17 23:14 Dose: 50 mg Montelukast Sodium (Singulair) 10 mg PO HS [facility] Last Admin: 04/08/17 23:21 Dose: 10 mg Tamsulosin HCl (Flomax) 0.4 mg PO HS [facility] Last Admin: 04/08/17 23:21 Dose: 0.4 mg Valsartan (Diovan) 80 mg PO DAILY [facility] Last Admin: 04/08/17 09:55 Dose: 80 mg - Labs Labs: 04/05/17 10:20 04/05/17 10:20 PT 11.0 Seconds (9.8-13.1) 03/13/17 14:40 INR 1.0 (0.9-1.2) 03/13/17 14:40 APTT 22.0 Seconds (25.6-37.1) L 03/13/17 14:40 Assessment and Plan (1) Dizziness Status: Resolved (2) Headache Status: Resolved (3) Dementia Status: Chronic (4) Inability to walk Status: Chronic (5) BPH (benign prostatic hyperplasia) Status: Chronic (6) CVA (cerebral vascular accident) Status: Acute
[2017-04-09] MEDS: Mannitol 12.5 gm/50 ml Inj IV SCH ×2 (03:08→16:57)
[2017-04-09] MEDS: Dexamethasone 4 mg/1 ml IVP SCH (03:08)
[2017-04-09] MEDS: Albuterol-Ipratrop 3 mg / 0.5 (3 ml) UD INH SCH ×3 (07:41→19:23)
[2017-04-09] MEDS ORDERED: Lidocaine 5% Patch TD SCH (09:00)
[2017-04-09] MEDS: Insulin Regular 100 units/ml SC SCH ×4 (10:49→22:43)
--- NOTE | 2017-04-09 15:08 | CP.PCM.PN ---
Subjective - Date & Time of Evaluation Date of Evaluation: 04/09/17 Time of Evaluation: 11:30 - Subjective Subjective: F/U Acute CVA Pt awake, Ox3, answer questions slowly. Objective - Vital Signs/Intake and Output Vital Signs (last 24 hours): Temp Pulse Resp BP Pulse Ox 97.7 F 60 18 95/56 L 98 04/09/17 12:15 04/09/17 12:15 04/09/17 12:15 04/09/17 12:15 04/09/17 12:15 - Medications Medications: Current Medications Acetaminophen (Tylenol 325mg Tab) 650 mg PO Q6 PRN PRN Reason: Pain, Mild (1-3) Last Admin: 04/08/17 10:51 Dose: 650 mg Albuterol/Ipratropium (Duoneb 3 Mg/0.5 Mg (3 Ml) Ud) 3 ml INH RTID [facility] Last Admin: 04/09/17 13:45 Dose: 3 ml Aspirin (Aspirin) 325 mg PO DAILY [facility] Last Admin: 04/09/17 10:53 Dose: 325 mg Atorvastatin Calcium (Lipitor) 40 mg PO HS [facility] Last Admin: 04/08/17 23:14 Dose: 40 mg Carbidopa/Levodopa (Sinemet) 1 tab PO TID [facility] Last Admin: 04/09/17 10:52 Dose: 1 tab Dexamethasone (Decadron Inj) 4 mg IVP Q12@0400,1600 [facility] Last Admin: 04/09/17 03:08 Dose: 4 mg Finasteride (Proscar) 5 mg PO HS [facility] Last Admin: 04/08/17 23:21 Dose: 5 mg Insulin Human Regular (Humulin R) 0 units SC ACHS [facility] PRN Reason: Protocol Last Admin: 04/09/17 10:49 Dose: 2 units Lidocaine (Lidoderm) 1 ea TD DAILY [facility] Last Admin: 04/08/17 14:16 Dose: 1 ea Mannitol (Mannitol) 20 gm IV Q12@0400,1600 [facility] Last Admin: 04/09/17 03:08 Dose: 20 gm Metformin HCl (Glucophage) 500 mg PO BIDWM [facility] Last Admin: 04/09/17 10:49 Dose: 500 mg Metoprolol Tartrate (Lopressor) 50 mg PO Q12 [facility] Last Admin: 04/09/17 10:51 Dose: 50 mg Montelukast Sodium (Singulair) 10 mg PO HS [facility] Last Admin: 04/08/17 23:21 Dose: 10 mg Tamsulosin HCl (Flomax) 0.4 mg PO HS [facility] Last Admin: 04/08/17 23:21 Dose: 0.4 mg Valsartan (Diovan) 80 mg PO DAILY [facility] Last Admin: 04/09/17 10:48 Dose: 80 mg - Labs Labs: 04/05/17 10:20 04/05/17 10:20 PT 11.0 Seconds (9.8-13.1) 03/13/17 14:40 INR 1.0 (0.9-1.2) 03/13/17 14:40 APTT 22.0 Seconds (25.6-37.1) L 03/13/17 14:40 - Constitutional Appears: Chronically Ill - Head Exam Head Exam: NORMAL INSPECTION - Eye Exam Eye Exam: PERRL - ENT Exam ENT Exam: Normal Exam - Neck Exam Neck Exam: Normal Inspection - Respiratory Exam Respiratory Exam: Decreased Breath Sounds (at bases) - Cardiovascular Exam Cardiovascular Exam: REGULAR RHYTHM - GI/Abdominal Exam GI & Abdominal Exam: Soft, Normal Bowel Sounds - Extremities Exam Extremities Exam: Normal Inspection - Back Exam Back Exam: NORMAL INSPECTION - Neurological Exam Neurological Exam: Awake Additional comments: Answer simple questions, L hemiparesia improved, increased movements LUE/LLE - Skin Skin Exam: Warm Assessment and Plan (1) Acute CVA (cerebrovascular accident) Status: Acute (2) Encephalopathy Status: Acute (3) Anxiety and depression Status: Chronic (4) Generalized weakness Status: Chronic (5) Dementia Status: Chronic (6) HTN (hypertension) Status: Chronic (7) COPD (chronic obstructive pulmonary disease) Status: Chronic (8) History of CVA (cerebrovascular accident) Status: Chronic (9) Headache Status: Resolved (10) History of laminectomy Status: Acute (11) Cardiac arrhythmia Status: Acute (12) UTI (urinary tract infection) Status: Acute - Assessment and Plan (Free Text) Plan: Continue current Tx, Social Service working for transfer Pt to [facility].
[2017-04-09] MEDS: Lidocaine 5% Patch TD SCH (15:38)
[2017-04-09] MEDS ORDERED: Alum-Mag Hydrox-Simethicone Susp (30 mL) PO PRN (23:29)
--- NOTE | 2017-04-10 00:35 | CP.PCM.PN ---
Subjective - Date & Time of Evaluation Date of Evaluation: 04/09/17 Time of Evaluation: 22:00 - Subjective Subjective: Patient blood glucose is controlled on sliding curve, will reduce the IV Decadron and the IV Mannitol to taper the Decadron and Mannitol in order to make it easy for a transfer to a Rehab facility. He is awake, alert oriented X 3 at times. He looks missing his family in [place] which is causing him inability to focus and forgetfulness. Left Hemiparesis is 3/5 Objective - Vital Signs/Intake and Output Vital Signs (last 24 hours): Temp Pulse Resp BP Pulse Ox 98.1 F 86 18 147/67 98 04/10/17 00:05 04/10/17 00:05 04/10/17 00:05 04/10/17 00:05 04/10/17 00:05 Intake and Output: 04/09/17 04/10/17 18:59 06:59 Intake Total 1030 Balance 1030 - Medications Medications: Current Medications Acetaminophen (Tylenol 325mg Tab) 650 mg PO Q6 PRN PRN Reason: Pain, Mild (1-3) Last Admin: 04/08/17 10:51 Dose: 650 mg Al Hydrox/Mg Hydrox/Simethicone (Maalox Plus 30 Ml) 30 ml PO Q4 PRN PRN Reason: Indigestion / Heartburn Last Admin: 04/10/17 00:14 Dose: 30 ml Albuterol/Ipratropium (Duoneb 3 Mg/0.5 Mg (3 Ml) Ud) 3 ml INH RTID [facility] Last Admin: 04/09/17 19:23 Dose: 3 ml Aspirin (Aspirin) 325 mg PO DAILY [facility] Last Admin: 04/09/17 10:53 Dose: 325 mg Atorvastatin Calcium (Lipitor) 40 mg PO HS [facility] Last Admin: 04/09/17 22:38 Dose: 40 mg Carbidopa/Levodopa (Sinemet) 1 tab PO TID [facility] Last Admin: 04/09/17 16:56 Dose: 1 tab Dexamethasone (Decadron Inj) 4 mg IVP Q12@0400,1600 [facility] Last Admin: 04/09/17 03:08 Dose: 4 mg Finasteride (Proscar) 5 mg PO [facility] Last Admin: 04/09/17 22:42 Dose: 5 mg Insulin Human Regular (Humulin R) [facility] PR[facility] Reason: Protocol Last Admin: 04/09/17 22:43 Dose: Not Given Lidocaine (Lidoderm) 1 ea TD DAILY [facility] Last Admin: 04/09/17 15:38 Dose: Not Given Mannitol (Mannitol) 20 gm IV Q12@0400,1600 [facility] Last Admin: 04/09/17 16:57 Dose: 20 gm Metformin HCl (Glucophage) 500 mg PO BIDWM [facility] Last Admin: 04/09/17 16:59 Dose: 500 mg Metoprolol Tartrate (Lopressor) 50 mg PO Q12 [facility] Last Admin: 04/09/17 22:39 Dose: Not Given Montelukast Sodium (Singulair) 10 mg PO HS [facility] Last Admin: 04/09/17 22:42 Dose: 10 mg Pantoprazole Sodium (Protonix Ec Tab) 40 mg PO DAILY [facility] Tamsulosin HCl (Flomax) 0.4 mg PO HS [facility] Last Admin: 04/09/17 22:38 Dose: 0.4 mg Valsartan (Diovan) 80 mg PO DAILY [facility] Last Admin: 04/09/17 10:48 Dose: 80 mg - Labs Labs: 04/05/17 10:20 04/05/17 10:20 PT 11.0 Seconds (9.8-13.1) 03/13/17 14:40 INR 1.0 (0.9-1.2) 03/13/17 14:40 APTT 22.0 Seconds (25.6-37.1) L 03/13/17 14:40 Assessment and Plan (1) Dementia Status: Chronic (2) Inability to walk Status: Chronic (3) BPH (benign prostatic hyperplasia) Status: Chronic (4) CVA (cerebral vascular accident) Status: Acute
[2017-04-10] MEDS ORDERED: Mannitol 12.5 gm/50 ml Inj IV SCH ×2 (00:45→04:00)
[2017-04-10] MEDS ORDERED: Dexamethasone 4 mg/1 ml IVP SCH ×2 (04:00→09:00)
[2017-04-10] MEDS: Albuterol-Ipratrop 3 mg / 0.5 (3 ml) UD INH SCH ×2 (07:31→14:15)
[2017-04-10 07:56] VITALS: RESP 20
[2017-04-10] MEDS: Insulin Regular 100 units/ml SC SCH ×2 (08:43→13:00)
[2017-04-10] MEDS: Lidocaine 5% Patch TD SCH (08:46)
[2017-04-10] MEDS ORDERED: Dexamethasone 4 MG in Sodium Chloride 0.9% 50 ML IVPB SCH (09:00)
[2017-04-10] MEDS ORDERED: Pantoprazole 40 mg EC Tab PO SCH (09:00)
--- NOTE | 2017-04-10 11:49 | CP.PCM.PCO ---
Assessment & Plan - Assessment and Plan (Free Text) Assessment: pt. sitting up in bed , awake, alert vss, afebrile pt. received last dose of decadron and Mannitol case discussed with - pt. cleared for discharge to [facility] today by will cont. to taper decadron as follow: 4mg po daily x 2 days, 2 mg po daily x 2 days as per Pt. for d/c to [facility] under cont. current meds (see reconciliation)
[2017-04-10 12:11] VITALS: PULSE 64; TEMP 97.4; O2SAT 98
[2017-04-10 12:32] VITALS: BP 104/55
--- NOTE | 2017-04-10 13:17 | CP.PCM.DIS ---
Provider - Provider Date of Admission: 03/14/17 12:49 Attending physician: Binh Dahl MD Diagnosis - Discharge Diagnosis (1) Acute CVA (cerebrovascular accident) Status: Acute (2) Encephalopathy Status: Acute (3) Anxiety and depression Status: Chronic Priority: High (4) Generalized weakness Status: Chronic Priority: High (5) Dementia Status: Chronic Priority: High (6) HTN (hypertension) Status: Chronic Priority: Medium (7) COPD (chronic obstructive pulmonary disease) Status: Chronic Priority: Low (8) History of CVA (cerebrovascular accident) Status: Chronic Priority: Medium (9) Headache Status: Resolved Priority: Medium (10) History of laminectomy Status: Acute (11) Cardiac arrhythmia Status: Acute (12) UTI (urinary tract infection) Status: Acute Hospital Course - Lab Results Lab Results: Micro Results 03/28/17 10:56 Urine,Ayala Urine Culture - Final Klebsiella Pneumoniae Ssp Pneu 03/24/17 06:11 Naris MRSA Culture (Admit) - Final MRSA NOT DETECTED 03/16/17 10:50 Nose MRSA Culture (Admit) - Final MRSA NOT DETECTED Most Recent Lab Values WBC 14.0 K/uL (4.8-10.8) H 04/05/17 10:20 RBC 4.71 Mil/uL (4.40-5.90) 04/05/17 10:20 Hgb 14.1 g/dL (12.0-18.0) 04/05/17 10:20 Hct 43.6 % (35.0-51.0) 04/05/17 10:20 MCV 92.5 fl (80.0-94.0) 04/05/17 10:20 MCH 30.0 pg (27.0-31.0) 04/05/17 10:20 MCHC 32.4 g/dL (33.0-37.0) L 04/05/17 10:20 RDW 14.5 % (11.5-14.5) 04/05/17 10:20 Plt Count 189 K/uL (130-400) 04/05/17 10:20 MPV 8.6 fl (7.2-11.7) 03/24/17 05:40 Neut % (Auto) 77.1 % (50.0-75.0) H 03/24/17 05:40 Lymph % (Auto) 16.4 % (20.0-40.0) L 03/24/17 05:40 [place] % (Auto) 5.7 % (0.0-10.0) 03/24/17 05:40 Eos % (Auto) 0.1 % (0.0-4.0) 03/24/17 05:40 Baso % (Auto) 0.7 % (0.0-2.0) 03/24/17 05:40 Neut # (Auto) 9.7 K/uL (1.8-7.0) H 03/24/17 05:40 Lymph # (Auto) 2.1 K/uL (1.0-4.3) 03/24/17 05:40 [place] # (Auto) 0.7 K/uL (0.0-0.8) 03/24/17 05:40 Eos # (Auto) 0.0 K/uL (0.0-0.7) 03/24/17 05:40 Baso # (Auto) 0.1 K/uL (0.0-0.2) 03/24/17 05:40 ESR 22 mm/hr (0-20) H 03/14/17 05:15 PT 11.0 Seconds (9.8-13.1) 03/13/17 14:40 INR 1.0 (0.9-1.2) 03/13/17 14:40 APTT 22.0 Seconds (25.6-37.1) L 03/13/17 14:40 Sodium 134 mmol/l (132-148) 04/05/17 10:20 Potassium 4.0 MMOL/L (3.6-5.0) 04/05/17 10:20 Chloride 93 mmol/L (98-107) L 04/05/17 10:20 Carbon Dioxide 28 mmol/L (22-30) 04/05/17 10:20 Anion Gap 17 (10-20) 04/05/17 10:20 BUN 24 mg/dl (9-20) H 04/05/17 10:20 Creatinine 0.7 mg/dl (0.8-1.5) L 04/05/17 10:20 Est GFR ( Amer) > 60 04/05/17 10:20 Est GFR (Non-Af Amer) > 60 04/05/17 10:20 POC Glucose (mg/dL) 297 mg/dL (65-110) H 04/10/17 10:38 Random Glucose 264 mg/dL (75-110) H 04/05/17 10:20 Hemoglobin A1c 7.2 % (4.2-6.5) H 03/17/17 06:55 Serum Osmolality 291 mosm/kg (272-300) 04/07/17 06:17 Calcium 9.1 mg/dL (8.4-10.2) 04/05/17 10:20 Phosphorus 3.6 mg/dl (2.5-4.5) 03/22/17 04:50 Magnesium 2.1 MG/DL (1.6-2.3) 03/22/17 04:50 Total Bilirubin 1.8 mg/dl (0.2-1.3) H 03/24/17 05:40 AST 88 U/L (17-59) H D 03/24/17 05:40 ALT 41 U/L (21-72) 03/24/17 05:40 Alkaline Phosphatase 76 U/L (38-126) 03/24/17 05:40 Troponin I 0.0170 ng/mL (0.00-0.120) 03/17/17 04:00 C-React Prot High Sens 2.22 mg/L (1.00-3.00) 03/14/17 05:15 Total Protein 8.2 G/DL (6.3-8.2) 03/24/17 05:40 Albumin 4.1 g/dL (3.5-5.0) 03/24/17 05:40 Globulin 4.1 gm/dL (2.2-3.9) H 03/24/17 05:40 Albumin/Globulin Ratio 1.0 (1.0-2.1) 03/24/17 05:40 Triglycerides 50 mg/DL (0-149) D 03/17/17 04:00 Cholesterol 156 mg/dL (0-199) 03/17/17 04:00 LDL Cholesterol Direct 67 mg/dL (0-129) 03/17/17 04:00 HDL Cholesterol 57 MG/DL (30-70) 03/17/17 04:00 Prostate Specific Ag 0.266 ng/ML (0.00-4.0) 03/14/17 05:15 Vitamin B1 120 nmol/L (78-185) 03/14/17 05:15 Vitamin B12 514 pg/mL (239-931) 03/14/17 05:15 25-OH Vitamin D Total 35.1 NG/ML (30.0-100.0) 03/14/17 05:15 Thyroxine (T4) 8.13 ug/dl (5.5-11.0) 03/14/17 05:15 TSH 3rd Generation 2.76 mIU/ML (0.46-4.68) 03/14/17 05:15 Urine Color Yellow (YELLOW) 03/28/17 10:56 Urine Clarity Cloudy (Clear) 03/28/17 10:56 Urine pH 6.0 (5.0-8.0) 03/28/17 10:56 Ur Specific [place] 1.031 (1.003-1.030) H 03/28/17 10:56 Urine Protein Negative mg/dL (NEGATIVE) 03/28/17 10:56 Urine Glucose (UA) Neg mg/dL (Normal) 03/28/17 10:56 Urine Ketones Negative mg/dL (NEGATIVE) 03/28/17 10:56 Urine Blood Moderate (NEGATIVE) 03/28/17 10:56 Urine Nitrate Positive (NEGATIVE) H 03/28/17 10:56 Urine Bilirubin Negative (NEGATIVE) 03/28/17 10:56 Urine Urobilinogen 0.2-1.0 mg/dL (0.2-1.0) 03/28/17 10:56 Ur Leukocyte Esterase Large Tree/uL (Negative) 03/28/17 10:56 Urine RBC (Auto) 11 /hpf (0-3) H 03/28/17 10:56 Ur Squamous Epith Cells < 1 /hpf (0-5) 03/18/17 06:00 Urine WBC Clumps (Auto) Few /hpf (NONE) H 03/28/17 10:56 Urine Microscopic WBC 243 /hpf (0-5) H 03/28/17 10:56 Amorphous Sediment Rare /ul (<OCC) H 03/17/17 01:10 Urine Bacteria Mod (<OCC) H 03/28/17 10:56 Urine Osmolality 781 mosm/kg (300-1000) 03/18/17 06:00 Ur Random Creatinine 72.5 mg/dL 03/18/17 06:00 Phenytoin 8.4 ug/ML (10-20) L 03/19/17 04:35 Anti-Yo Antibody Titer TNP 03/14/17 05:15 Anti-Yo Ab ([place]) TNP 03/14/17 05:15 Anti-Yo IgG Ab (IFA) Negative (NEGATIVE) 03/14/17 05:15 RPR Nonreactive (NONREACTIVE) 03/14/17 05:15 Discharge Exam - Head Exam Head Exam: NORMAL INSPECTION Discharge Plan - Discharge Medications Prescriptions: Dexamethasone [Decadron] 4 mg PO DAILY #4 tab - Follow Up Plan Condition: STABLE Disposition: REHAB FACILITY/REHAB UNIT Additional Instructions: pt. cleared for d/c to [facility] today by and Referrals: Santana Patrick MD [Staff Provider] - Dimitris Moore MD [Staff Provider] - Cherri Davenport [Family Provider] - Binh Dahl MD [Staff Provider] -
--- NOTE | 2017-04-10 22:32 | CP.PCM.PN ---
Subjective - Date & Time of Evaluation Date of Evaluation: 04/10/17 Time of Evaluation: 13:45 - Subjective Subjective: Patient did better and was discharged to [facility] at the [facility]. He received his last dose of IV Mannitol, he received one dose of IV Decadron 4mg and will be on Po Decadron 4 mg /Day x 2 more days. He is awake, alert oriented x 2 and sometimes X 3 due to Delirium. He has left sided hemiparesis at 3/5 in LE and 2 to 3/5 in left UE. I spoke to Joe about his treatment and the plan. She asked me to call the and daughters in [place]. I called them for about 25 minutes and explained to the and the daughters his condition and the plans and the expectations. They decided to take him to [place] to be able to stay with them and avoid further aggravation as he has only his niece here in [facility]. Objective - Vital Signs/Intake and Output Vital Signs (last 24 hours): Temp Pulse Resp BP Pulse Ox 97.4 F L 64 20 104/55 L 98 04/10/17 12:00 04/10/17 12:00 04/10/17 12:00 04/10/17 12:00 04/10/17 12:00 - Labs Labs: 04/05/17 10:20 04/05/17 10:20 PT 11.0 Seconds (9.8-13.1) 03/13/17 14:40 INR 1.0 (0.9-1.2) 03/13/17 14:40 APTT 22.0 Seconds (25.6-37.1) L 03/13/17 14:40 Assessment and Plan (1) Dementia Status: Chronic (2) Inability to walk Status: Chronic (3) BPH (benign prostatic hyperplasia) Status: Chronic (4) CVA (cerebral vascular accident) Status: Acute
== END 2017-04-10 14:00 | DRG 64 ==
LOC: H.ER 14:56 → H.ERHOLD 17:12 → H.TEL 21:28 → OBSVTOIN 03-14 12:49 → H.ICU/CCU 03-16 21:53 → H.TEL 03-24 18:26
PROVIDERS: ADMIT Internal Medicine Pulmonary Disease; ATTEND Internal Medicine Pulmonary Disease
PROC: 02HV33Z Insertion of Infusion Device into Superior Vena Cava, Percutaneous Approach (ICD-10-PCS; principal; 2017-03-19)
PROC: B548ZZA Ultrasonography of Superior Vena Cava, Guidance (ICD-10-PCS; 2017-03-19)
DX: I63.531 Cerebral infarction due to unspecified occlusion or stenosis of right posterior cerebral artery (principal); G93.6 Cerebral edema; G93.49 Other encephalopathy; I69.354 Hemiplegia and hemiparesis following cerebral infarction affecting left non-dominant side; E87.1 Hypo-osmolality and hyponatremia; T83.511A Infection and inflammatory reaction due to indwelling urethral catheter, initial encounter; N39.0 Urinary tract infection, site not specified; B96.1 Klebsiella pneumoniae [K. pneumoniae] as the cause of diseases classified elsewhere; I65.23 Occlusion and stenosis of bilateral carotid arteries; F03.90 Unspecified dementia, unspecified severity, without behavioral disturbance, psychotic disturbance, mood disturbance, and anxiety; H53.462 Homonymous bilateral field defects, left side; I10 Essential (primary) hypertension; I48.91 Unspecified atrial fibrillation; R47.1 Dysarthria and anarthria; R07.89 Other chest pain; R26.2 Difficulty in walking, not elsewhere classified; J44.9 Chronic obstructive pulmonary disease, unspecified; M54.16 Radiculopathy, lumbar region; N40.0 Benign prostatic hyperplasia without lower urinary tract symptoms; F41.9 Anxiety disorder, unspecified; F32.9 Major depressive disorder, single episode, unspecified; Z95.0 Presence of cardiac pacemaker; Z79.82 Long term (current) use of aspirin